=== PATIENT | male | born 1960 | race Hispanic/Latino ===

== ENCOUNTER 2017-10-30 12:39 | Emergency (ER) | payer MEDICARE ==
[~2017-10-30] VITALS: Ht 188 cm; Wt 124.7 kg
--- NOTE | 2017-10-30 15:24 | Diagnostic Imaging Report ---
PROCEDURE:X-RAY PELVIS, AP VIEW COMPARISON:None. INDICATIONS:FALL FINDINGS: There are no displaced fractures, dislocations, lytic or blastic lesions. The bones are well-mineralized. The soft-tissues are unremarkable. CONCLUSION: No evidence of acute displaced pelvic fracture or dislocation. Dictated by: Elton Ball M.D. on 10/30/2017 at 15:26 Electronically approved by: Elton Ball M.D. on 10/30/2017 at 15:26
--- NOTE | 2017-10-30 15:27 | Diagnostic Imaging Report ---
PROCEDURE:L-SPINE COMPLETE COMPARISON:None. INDICATIONS:FALL FINDINGS: There are 5 lumbar-type vertebral bodies. The vertebral bodies are well-aligned without evidence of spondylolisthesis. Vertebral body heights are maintained. Mild degenerative changes, marked by mild disc space narrowing and osteophytosis. L4-L5 and L5-S1 facet arthropathy. There are no fractures, lytic or blastic lesions. The sacroiliac joints are unremarkable. CONCLUSION: No evidence of acute displaced fracture of the lumbar spine. Degenerative changes. Dictated by: Elton Ball M.D. on 10/30/2017 at 15:29 Electronically approved by: Elton Ball M.D. on 10/30/2017 at 15:29
== END 2017-10-30 16:00 | disposition left against medical advice (07) ==
LOC: ER 12:39
CPT/HCPCS: 72110; 72170; 99282

== ENCOUNTER 2018-05-25 20:31 | Emergency (ER) | payer MEDICARE, OTHER ==
[~2018-05-25] VITALS: Ht 188 cm; Wt 124.7 kg
--- OUTSIDE RECORDS SUMMARY | 2018-05-25 20:33 | XMS REPORT | Clinical Summary ---
Author Author [facility] Organization [facility] Address Unknown Phone Unavailable Care Team Providers Care Company Marker Name Role Phone Kd Epps MD PCP Allergies No Known Allergies Medications End Date Status Medication Sig Dispensed Refills Start Date Active pantoprazole (PROTONIX) Take 40 mg by 0 40 MG EC tablet mouth daily. Active buPROPion XL (WELLBUTRIN Take 150 mg 0 XL) 150 MG 24 hr tablet by mouth 2 (two) times a day. Active tamsulosin (FLOMAX) 0.4 Take 0.4 mg 0 mg capsule by mouth daily. Active aspirin (ECOTRIN) 81 MG Take 81 mg by 0 enteric coated tablet mouth daily. Active sertraline (ZOLOFT) 100 Take 100 mg 0 MG tablet by mouth daily. Active metoprolol succinate XL Take 25 mg by 0 (TOPROL-XL) 25 mg 24 hr mouth daily. tablet Active insulin GLARGINE (LANTUS) Inject 50 0 100 unit/mL injection Units under (vial) the skin daily. Active Problems Problem Noted Date Type 2 diabetes mellitus with renal complication 02/19/2018 Encounters Care Team Description Date Type Specialty Vilma Christie RN 05/21/2018 Abstract Transplant Laura Zavala Cancel evaluation 05/21/2018 Telephone Transplant Vilma Christie RN Results 05/03/2018 Documentation Transplant Vilma Christie RN PSA elevation (Primary Dx); ESRD (end stage renal disease) ([facility]) 05/03/2018 Orders Only Transplant Jase Jules MD Canceled (Department/Provider) 04/24/2018 Hospital Transplant Encounter Jase Jules MD Breaux, Denise Canceled (Department/Provider) 04/24/2018 Hospital Transplant Encounter Sierra Griffin Consent Forms (Scanned Consent For Kidney Transplant Evaluation, Pre Txp Education & INOCENCIA forms in Media. 03-22-2018) 03/26/2018 Documentation Transplant Saadia Vegas MD ESRD (end stage renal disease) 03/22/2018 Hospital Transplant Encounter Jase Jules MD ESRD (end stage renal disease) (Primary Dx) 03/22/2018 Hospital Transplant Encounter Asked, No Pcp Jase Jules MD 03/22/2018 Hospital Transplant Encounter Jase Jules MD 03/22/2018 Hospital Transplant Encounter Lucas Laura Pre-kidney full eval day 1 03/22/2018 Telephone Transplant Simona Olson 02/27/2018 Documentation Transplant NatanalexisMalathi MA Referral - Kidney Txp (New MD Consult) 02/19/2018 Telephone Transplant after 05/24/2017 Social History Date Tobacco Use Types Packs/Day Years Used Never Smoker Smokeless Tobacco: Never Used Sex Assigned at Date Recorded Not on file Industry Job Start Date Occupation Not on file Not on file Not on file Travel End Travel History Travel Start No recent travel history available. Last Filed Vital Signs Time Taken Vital Sign Reading 03/22/2018 7:25 AM CDT Blood Pressure 118/65 03/22/2018 7:25 AM CDT Pulse 65 03/22/2018 7:23 AM CDT Temperature 36.6 C (97.9 F) 03/22/2018 7:23 AM CDT Respiratory Rate 17 03/22/2018 7:23 AM CDT Oxygen Saturation 96% - Inhaled Oxygen - Concentration 03/22/2018 7:23 AM CDT Weight 126 kg (278 lb 11.2 oz) 03/22/2018 7:23 AM CDT Height 188 cm (6' 2") 03/22/2018 7:23 AM CDT Body Mass Index 35.78 Plan of Treatment Health Maintenance Due Date Last Done Comments DIABETIC RETINAL EYE EXAM 1961 MMR VACCINES (1 of 1 - 1962 Standard series) DIABETIC FOOT EXAM 1971 URINE MICROALBUMIN 1971 VARICELLA VACCINES (1 of 1974 2 - 2-dose adolescent series) HEPATITIS B VACCINES (1 1980 of 3 - Risk 3-dose series) COLON CANCER SCREENING 2011 SHINGRIX VACCINE (1 of 2) 2011 INFLUENZA VACCINE 01/24/2018 IPV VACCINES Aged Out No longer eligible based on patient's age to complete this topic MENINGOCOCCAL VACCINE Aged Out No longer eligible based on patient's age to complete this topic Procedures Comments Procedure Name Priority Date/Time Associated Diagnosis OPIATES, S/P, QUANT Routine 03/22/2018 10:50 AM CDT THC METABOLITE, S/P, Routine 03/22/2018 QUANT 10:50 AM CDT ESTIMATED GFR Routine 03/22/2018 10:50 AM CDT PROSTATE SPECIFIC ANTIGEN Routine 03/22/2018 ESRD (end stage renal 10:50 AM CDT disease) SERUM ELECTROPHORESIS Routine 03/22/2018 ESRD (end stage renal 10:50 AM CDT disease) C-PEPTIDE Routine 03/22/2018 ESRD (end stage renal 10:50 AM CDT disease) TB T-SPOT Routine 03/22/2018 ESRD (end stage renal 10:50 AM CDT disease) (HCC) NICOTINE AND METABOLITES, Routine 03/22/2018 ESRD (end stage renal SERUM 10:50 AM CDT disease) DRUG MARQUES 9, SER/LEONID, SCRN Routine 03/22/2018 ESRD (end stage renal W/RFLX TO CONF 10:50 AM CDT disease) ABORH - TRANSPLANT Routine 03/22/2018 ESRD (end stage renal 10:50 AM CDT disease) PARTIAL THROMBOPLASTIN Routine 03/22/2018 ESRD (end stage renal TIME (PTT) 10:50 AM CDT disease) PROTHROMBIN TIME WITH INR Routine 03/22/2018 ESRD (end stage renal 10:50 AM CDT disease) HC COMPLETE BLD COUNT Routine 03/22/2018 ESRD (end stage renal W/AUTO DIFF 10:50 AM CDT disease) SYPHILIS TREPONEMAL IGG Routine 03/22/2018 ESRD (end stage renal 10:50 AM CDT disease) HEPATITIS C ANTIBODY Routine 03/22/2018 ESRD (end stage renal 10:50 AM CDT disease) HEPATITIS B SURFACE AB, Routine 03/22/2018 ESRD (end stage renal QUANTITATIVE 10:50 AM CDT disease) HEPATITIS B SURFACE Routine 03/22/2018 ESRD (end stage renal ANTIGEN 10:50 AM CDT disease) HEPATITIS B SURFACE Routine 03/22/2018 ESRD (end stage renal ANTIBODY 10:50 AM CDT disease) HEPATITIS B CORE ANTIBODY Routine 03/22/2018 ESRD (end stage renal TOTAL 10:50 AM CDT disease) HEPATITIS A ANTIBODY Routine 03/22/2018 ESRD (end stage renal TOTAL 10:50 AM CDT disease) HIV AG/AB COMBINATION Routine 03/22/2018 ESRD (end stage renal 10:50 AM CDT disease) URINALYSIS SCREEN AND Routine 03/22/2018 ESRD (end stage renal MICROSCOPY, WITH REFLEX 10:50 AM CDT disease) TO CULTURE COMPREHENSIVE METABOLIC Routine 03/22/2018 ESRD (end stage renal PANEL 10:50 AM CDT disease) GRAM STAIN Routine 03/22/2018 10:50 AM CDT URINE CULTURE Routine 03/22/2018 10:50 AM CDT after 05/24/2017 Results * Syphilis treponemal IgG (03/22/2018 10:50 AM CDT) Syphilis treponemal IgG Non-reactiveComment: Non-reactive [facility] Non-reactive: No serological PATHOLOGY AND evidence of Syphilis infection GENOMIC MEDICINE Specimen Serum Performing Organization Address City/State/Zipcode Phone Number [facility] [address] [facility] [place] [address] PATHOLOGY AND GENOMIC MEDICINE * Urinalysis screen and microscopy, with reflex to culture (03/22/2018 10:50 AM CDT) Specimen site Clean catch [facility] PATHOLOGY AND GENOMIC MEDICINE Color, UA Yellow [facility] PATHOLOGY AND GENOMIC MEDICINE Appearance, UA Cloudy [facility] PATHOLOGY AND GENOMIC MEDICINE Specific gravity, UA 1.017 1.001 - 1.035 [facility] PATHOLOGY AND GENOMIC MEDICINE pH, UA 7.0 5.0 - 8.5 [facility] PATHOLOGY AND GENOMIC MEDICINE Protein, UA 2+ (A) Negative [facility] PATHOLOGY AND GENOMIC MEDICINE Glucose, UA Negative Negative [facility] PATHOLOGY AND GENOMIC MEDICINE Ketones, UA Negative Negative [facility] PATHOLOGY AND GENOMIC MEDICINE Bilirubin, UA Negative Negative [facility] PATHOLOGY AND GENOMIC MEDICINE Blood, UA Small (A) Negative [facility] PATHOLOGY AND GENOMIC MEDICINE Nitrite, UA Negative Negative [facility] PATHOLOGY AND GENOMIC MEDICINE Urobilinogen, UA 4.0 (A) <2.0 [facility] PATHOLOGY AND GENOMIC MEDICINE Leukocyte esterase, UA Large (A) Negative [facility] PATHOLOGY AND GENOMIC MEDICINE Epithelial cells, UA 1 /HPF [facility] PATHOLOGY AND GENOMIC MEDICINE Round epithelial cells, 1 0 - 1 /HPF [facility] [place]A PATHOLOGY AND GENOMIC MEDICINE WBC, UA >180 (H) 0 - 1 /HPF [facility] PATHOLOGY AND GENOMIC MEDICINE RBC, UA None seen 0 - 5 /HPF [facility] PATHOLOGY AND GENOMIC MEDICINE Bacteria, UA Few None seen [facility] PATHOLOGY AND GENOMIC MEDICINE WBC clumps, UA Moderate (A) [facility] PATHOLOGY AND GENOMIC MEDICINE Yeast, UA Few (A) [facility] PATHOLOGY AND GENOMIC MEDICINE Yeast with pseudohyphae, Few (A) [facility] UA PATHOLOGY AND GENOMIC MEDICINE Hyaline casts, UA 2 /LPF [facility] PATHOLOGY AND GENOMIC MEDICINE Specimen Urine Performing Organization Address City/State/Zipcode Phone Number [facility] [address] [place] [address] PATHOLOGY AND GENOMIC MEDICINE * Estimated GFR (03/22/2018 10:50 AM CDT) Estimated GFR 22 (A) mL/min/1.73 m2 [facility] Comment: PATHOLOGY AND [employer] GENOMIC MEDICINE rpretation G1 >=90 Normal or high G2 60-89Mildly decreased [id number] Mildly to moderately decreased [id number] Moderately to severely decreased G4 15-29Severely decreased G5 <15Kidney failure The eGFR was calculated using the Chronic Kidney Disease Epidemiology Collaboration (CKD-EPI) equation. Interpretation is based on recommendations of the National Kidney Foundation-Kidney Disease Outcomes Quality Initiative (NKF-KDOQI) published in 2014. Specimen Plasma specimen Performing Organization Address City/[facility]/Zipcode Phone Number [place] [phone] [place] [address] PATHOLOGY AND GENOMIC MEDICINE * Opiates, s/p, quant (03/22/2018 10:50 AM CDT) 6-acetylmorphine, s/p, <2 ng/mL [facility] quant Comment: INTERPRETIVE INFORMATION: Opiates, Serum or Plasma, Quantita tive Methodology: Quantitative Liquid Chromatography-Tandem Mass Spectrometry Positive cutoff: 2 ng/mL For medical purposes only; not valid for forensic use. Identification of specific drug(s) taken by specimen donor is problematic due to common metabolites, some of which are prescription drugs themselves. The absence of expected drug(s) and/or drug metabolite(s) may indicate non-compliance, inappropriate timing of specimen collection relative to drug administration, poor drug absorption, or limitations of testing. All drugs covered are the non-glucuronidated (free) form. The concentration value must be greater than or equal to the cutoff to be reported as positive. A very small amount of an unexpected drug analyte in the presence of a large amount of an expected drug analyte may reflect pharmaceutical impurity. Interpretive questions should be directed to the laboratory. Test developed and characteristics determined by [facility]. See Compliance Statement B: [facility]/ Codeine, s/p, quant <2 ng/mL [facility] Morphine, s/p, quant <2 ng/mL [facility] Hydrocodone, s/p, quant <2 ng/mL [facility] Hydromoprhone, s/p, quant <2 ng/mL [facility] Oxycodone, s/p, quant <2 ng/mL [facility] Oxymorphone, s/p, quant <2 ng/mL [facility] Comment: Performed by [facility], [address] [place], [place] [id number] [email or web address], Martin Moe MD - Lab. Director Specimen Serum Performing Organization Address [facility]/Zipcode Phone Number [facility] [address] [place] [address] * HIV Ag/Ab combination (03/22/2018 10:50 AM CDT) HIV Ag/Ab combination Non-reactive Non-reactive [facility] PATHOLOGY AND GENOMIC MEDICINE Specimen Blood Performing Organization Address City/State/Zipcode Phone Number [facility] [address] [place] [address] PATHOLOGY AND GENOMIC MEDICINE * TB T-SPOT (03/22/2018 10:50 AM CDT) TB T-SPOT SEE NOTE [facility] Comment: PATHOLOGY AND T-SPOT TUBERCULOSIS GENOMIC MEDICINE Nil Control: 0 Panel A: 4 Panel B: 4 Positive Control: TMTC Result:NEGATIVE NOTE: TMTC INDICATES TOO MANY SPOTS TO COUNT SAT INDICATES THE WELL WAS SATURATED RESULTS INTERPRETATION: RESULTS ARE NEGATIVE WHEN (PANEL A-NIL) OR (PANEL B-NIL) <=4 SPOTS, INCLUDING VALUES LESS THAN ZERO. RESULTS ARE POSITIVE WHEN (PANEL A-NIL) OR (PANEL B-NIL) >=8 SPOTS RESULTS ARE BORDERELINE WHEN EITHER (PANEL A-NIL) OR (PANEL B-NIL)=5,6,0R 7. THE TEST IS INVALID WHEN EITHER OF THE FOLLOWING CONDITIONS IS MET: 1.) THE NIL CONTROL HAS >10 SPOTS 2.) THE MITOGEN (POSITIVE CONTROL) HAS <20 SPOTS AND BOTH (PANEL A-NIL) AND (PANEL B-NIL) <=4 SPOTS. M. TUBERCULOSIS INFECTION UNLIKELY, BUT CANNOT BE EXCLUDED ESPECIALLY WHEN: 1. ANY ILLNESS IS CONSISTENT WITH TB DISEASE. 2. LIKELIHOOD OF PROGRESSION TO DISEASE (e.g. DUE TO IMMUNOSUPPRESSION) IS INCREASED. LIMITATIONS: DIAGNOSING OR EXCLUDING TUBERCULOSIS DISEASE, AND ASSESSING THE PROBABILITY OF LTBI, REQUIRES A COMBINATION OF EPIDEMIOLOGICAL, HISTORICAL, MEDICAL, AND DIAGNOSTIC FINDINGS THAT SHOULD BE TAKEN INTO ACCOUNT WHEN INTERPRETING T-SPOT.TB REFER TO THE MOST RECENT CDC GUIDANCE (HTTP: //WWW.CDC.GOV/NCHSTP/TB) FOR DETAILED RECOMMENDATIONS ABOUT DIAGNOSING TB INFECTION (INCLUDING DISEASE) AND SELECTING PERSONS FOR TESTING. 1.) A FALSE NEGATIVE RESULT CAN BE CAUSED BY INCORRECT BLOOD SAMPLE COLLECTION OR IMPROPER HANDLING OF THE SPECIMEN, AFFECTING LYMPHOCYTE FUNCTION 2.) THE PERFORMANCE OF T-SPOT.TB HAS NOT BEEN ADEQUATELY EVALUATED WITH SPECIMENS FROM INDIVIDUALS YOUNGER THANAGE 17 YEARS, IN WOMEN, AND IN PATIENTS WITH HEMOPHILIA. 3-) A FALSE POSITIVE RESULT WAS OBTAINED FOR T-SPOT.TB WHEN TESTED IN SUBJECTS WITH M. XENOPI, M. KANSASII, AND M. GORDONAE.WHILE ESAT-6 AND CFP-10 ANTIGENS ARE ABSENT FROM BCG STRAINS OF M. BOVIS AND FROM MOST ENVIRONMENTAL MYCOBACTERIA, IT IS POSSIBLE THAT A POSITIVE T-SPOT.TB RESULT MAY BE DUE TO INFECTION WITH M. KANSASII, M. SZULGAI, M. GORDONAE, OR M. MARINUM. ALTERNATIVE TESTS WOULD BE REQUIRED IF THESE INFECTIONS ARE SUSPECTED. 4.) A NEGATIVE TEST RESULT DOES NOT EXCLUDE THE POSSIBILITY OF EXPOSURE TO, OR INFECTION WITH, M. TUBERCULOSIS. PATIENTS WITH RECENT EXPOSURE TO TB INFECTED INDIVIDUALS EXHIBITING A NEGATIVE T-SPOT.TB RESULT SHOULD BE CONSIDERED FOR RETESTING WITHIN 6 WEEKS OR IF OTHER RELEVANT CLINICAL SYMPTOMS INDICATE POSSIBLE INFECTION. 5.) A POSITIVE TEST RESULT DOES NOT RULE IN ACTIVE TB DISEASE; OTHER TESTS SHOULD BE PERFORMED TO CONFIRM THE DIAGNOSIS OF ACTIVE TB DISEASE SUCH SPUTUM SMEAR AND CULTURE, PCR AND CHEST RADIOGRAPHY. 6.) T-SPOT.TB TEST HAS NOT BEEN EVALUATED IN SUBJECTS WHO HAVE RECEIVED >1 MONTH OF ANTI-TB THERAPY. 7. ) REFRIGERATED AND FROZEN SAMPLES ARE NOT RECOMMENDED FOR USE WITH T=SPOT.TB TEST. Performed by: [facility] Molecular Tuberculosis Laboratory [facility] ([id number]) [place], [place] [address] Specimen Blood Performing Organization Address City/State/Zipcode Phone Number [facility] [address] [place] [address] PATHOLOGY AND GENOMIC MEDICINE * Nicotine and metabolites, serum (03/22/2018 10:50 AM CDT) Nicotine <2.0 0.0 - 2.0 ng/mL [facility] PATHOLOGY AND GENOMIC MEDICINE Cotinine 3.4 (H) 0.0 - 2.0 ng/mL [facility] PATHOLOGY AND GENOMIC MEDICINE 4-OW-bfxduuhb <5.0 0.0 - 5.0 ng/mL [facility] Comment: PATHOLOGY AND This test was developed and GENOMIC MEDICINE its performance characteristics determined by the Department of Pathology and Genomic Medicine, [facility]. Serum nicotine and its metabolites cotinine and 3-SQ-eyjrlkpj are tested by HPLC tandem mass spectrometry. It has not been cleared or approved by FDA. The laboratory is regulated under CLIA as qualified to perform high-complexity testing. This test is used for clinical purposes. It should not be regarded as investigational or for research. Specimen Blood Performing Organization Address City/State/Zipcode Phone Number [facility] [place] [address] PATHOLOGY AND [facility] MEDICINE * Hepatitis B surface Ab, quantitative (03/22/2018 10:50 AM CDT) Hepatitis B surface Ab >1000.00 IU/L [facility] Comment: The anti-HBs is greater than or equal to 10 IU/L. This patient has either had an antibody response to HBV vaccination, received a transfusion, or has recovered from HBV infection. This patient should be considered immune to hepatitis B. An anti-HBs result greater than or equal to 10 IU/L implies immunity. For post-vaccination antibody testing guidelines for the general public refer to MMWR June 17, 2005/Vol. 54(No. 16);07-18, and for healthcare workers refer to MMWR June 14, 2013/Vol. 62(No. 10);07-14. Reference Interval: anti-HBs 9.99 IU/L or less ....... Negative 10.00 IU/L or greater .... Positive Results greater than 1,000.00 IU/L are reported as greater than 1,000.00 IU/L. This assay should not be used for blood donor screening, associated re-entry protocols, or for screening Human Cell, Tissues and Cellular and Tissue-Based Products (HCT/P). Performed by [facility], [address] [place] [id number] [email or web address], Martin Moe MD - Lab. Director Specimen Serum Performing Organization Address [facility] Phone Number [facility] [address] [place] [phone] * Hepatitis C antibody (03/22/2018 10:50 AM CDT) Hepatitis C Ab Non-reactive Non-reactive [facility] OF PATHOLOGY AND GENOMIC MEDICINE Specimen Blood Performing Organization Address City/[facility]/Zipcode Phone Number [facility] [place] [address] PATHOLOGY AND [facility] * Hepatitis A antibody total (03/22/2018 10:50 AM CDT) Hepatitis A total Ab Non-reactive Non-reactive [facility] PATHOLOGY AND GENOMIC MEDICINE Specimen Blood Performing Organization Address City/[facility] Phone Number [facility] [place] [address] PATHOLOGY AND GENOMIC MEDICINE * Drug marques 9, ser/leonid, scrn w/rflx to conf (03/22/2018 10:50 AM CDT) Amphetamines, s/p, screen Negative Cutoff 30 ng/mL [facility] Methamphetamine, s/p, Negative Cutoff 30 ng/mL [facility] screen Barbiturates, s/p, screen Negative Cutoff 75 ng/mL [facility] Benzodiazepines, s/p, Negative Cutoff 75 ng/mL [facility] screen Cocaine, s/p, screen Negative Cutoff 30 ng/mL [facility] Methadone, s/p, screen Negative Cutoff 40 ng/mL [facility] Opiates, s/p, screen Positive Cutoff 30 ng/mL [facility] Comment: If the screen is positive, then confirmation by mass spectrometry will be added. Additional charges will apply. Unconfirmed positive may be useful for medical purposes, but does not meet forensic standards. Oxycodone, s/p, screen Negative Cutoff 30 ng/mL [facility] Phencyclidine, s/p, Negative Cutoff 15 ng/mL [facility] screen Cannabinoids, s/p, screen Positive Cutoff 30 ng/mL [facility] Comment: If the screen is positive, then confirmation by mass spectrometry will be added. Additional charges will apply. Unconfirmed positive may be useful for medical purposes, but does not meet forensic standards. Drug screen comments, See Note [facility] serum Comment: INTERPRETIVE INFORMATION: Drug Screen 9 Panel, Serum or Plasma - Immunoassay Screen with Reflex to Mass Spectrometry Confirma tion/Quantitation 1. Methodology: Qualitative Immunoassay Screen 2. Drugs/Drug classes reported as "Positive" are automatically reflexed to mass spectrometry confirmation/quantitation testing. An immunoassay unconfirmed positive screen result may be useful for medical purposes but does not meet forensic standards. 3. The absence of expected drug(s) and/or drug metabolite(s) may indicate non-compliance, inappropriate timing of specimen collection relative to drug administration, poor drug absorption, or limitations of testing. The concentration at which the screening test can detect a drug or metabolite varies within a drug class. Specimens for which drugs or drug classes are detected by the screen are automatically reflexed to a second, more specific technology (mass spectrometry). The concentration value must be greater than or equal to the cutoff to be reported as positive. Interpretive questions should be directed to the laboratory. 4. For medical purposes only; not valid for forensic use. Test developed and characteristics determined by [facility]. See Compliance Statement B: [facility]/CS Performed by [facility], [address] [place] [address] [email or web address], Martin Moe MD - Lab. Director Specimen Serum Performing Organization Address City/[facility]/Zipcode Phone Number [facility] [address] [place] [address] * ABORh - transplant (03/22/2018 10:50 AM CDT) ABO grouping O [facility] PATHOLOGY AND GENOMIC MEDICINE Rh type POS [facility] PATHOLOGY AND GENOMIC MEDICINE Specimen Blood Performing Organization Address [facility] Phone Number [facility] [place] [address] PATHOLOGY AND [facility] * Hepatitis B core antibody total (03/22/2018 10:50 AM CDT) Hepatitis B core total Ab Reactive (A) Non-reactive [facility] PATHOLOGY AND GENOMIC MEDICINE Specimen Blood Performing Organization Address City/[facility] Phone Number [facility] [place] [address] PATHOLOGY AND [facility] * THC metabolite, s/p, quant (03/22/2018 10:50 AM CDT) 83-nlt-9-carboxy-THC, 39 ng/mL [facility] s/p, quant Comment: INTERPRETIVE INFORMATION: THC Metabolite, Serum or Plasma, Quantitative Methodology: Quantitative Liquid Chromatography-Tandem Mass Spectrometry. Positive cutoff: 5 ng/mL For medical purposes only; not valid for forensic use. The drug analyte detected in this assay, 9-carboxy THC, is a metabolite of maljh-0-rsljfvgqjouckrdxhxoz (THC).Detection of 9-carboxy THC suggests use of, or exposure to, a product containing THC.This test cannot distinguish between prescribed or non-prescribed forms of THC, nor can it distinguish between active or passive use.The plasma half-life for 9-carboxy THC metabolite is estimated to range from 4-12 hours. Test developed and characteristics determined by [facility]. See Compliance Statement B: [facility]/CS Performed by [facility], [address] [place] [address] [email or web address], Martin Moe MD - Lab. Director Specimen Serum Performing Organization Address [facility] Phone Number [facility] [address] [place] [address] * C-peptide (03/22/2018 10:50 AM CDT) C-peptide 3.5 1.1 - 4.4 ng/mL [facility] OF PATHOLOGY AND GENOMIC MEDICINE Specimen Plasma specimen Performing Organization [facility] Phone Number [facility] [place] [address] PATHOLOGY AND [facility] * Hepatitis B surface antibody (03/22/2018 10:50 AM CDT) Hepatitis B surface Ab Reactive (A) Non-reactive [facility] OF PATHOLOGY AND GENOMIC MEDICINE Specimen Blood Performing Organization [facility] [place] [address] PATHOLOGY AND [facility] * Hepatitis B surface antigen (03/22/2018 10:50 AM CDT) Hepatitis B surface Ag Non-reactive Non-reactive [facility] OF PATHOLOGY AND GENOMIC MEDICINE Specimen Blood Performing Organization [facility] Phone Number [facility] [place] [address] PATHOLOGY AND [employer] MEDICINE * Partial thromboplastin time, activated (03/22/2018 10:50 AM CDT) PTT 32.3 23.0 - 36.0 sec [facility] Comment: PATHOLOGY AND PTT therapeutic range for [facility] unfractionated heparin is 61.0-112.0 seconds which corresponds to Anti-Xa 0.3-0.7 U/ml. Specimen Blood Performing Organization Address [facility] [facility] [place] Phone Number [facility] [place] [address] PATHOLOGY AND [employer] MEDICINE * Prothrombin time with INR (03/22/2018 10:50 AM CDT) Prothrombin time 13.6 12.0 - 15.0 sec [facility] DEPART[facility] OF PATHOLOGY AND GENOMIC MEDICINE INR 1.0 [facility] OF Comment: PATHOLOGY AND The International Normalized [facility] MEDICINE Ratio (INR) is a therapeutic monitoring tool for patients who are stable on oral anticoagulant therapy. An INR of 2.0-3.0 is suggested for deep vein thrombosis/pulmonary embolism. Specimen Blood Performing Organization Address [facility] Phone Number [facility] DE[facility] OF [address] [place] [address] PATHOLOGY AND GENOMIC MEDICINE * Gram stain (03/22/2018 10:50 AM CDT) Gram stain result Moderate WBC's [facility] DEPARTMENT OF [facility] Budding yeast, PATHOLOGY AND pseudohyphae present GENOMIC MEDICINE Comment: Specimen Information [id number] Specimen Source: Urine Specimen Site: Clean catch Specimen Urine Performing Organization Address City/State/Zipcode Phone Number [facility] DEPARTMENT OF [address] [place] [phone] PATHOLOGY AND GENOMIC MEDICINE * CBC with platelet and differential (03/22/2018 10:50 AM CDT) WBC 5.71 4.50 - 11.00 k/uL [facility] DEPARTMENT OF PATHOLOGY AND GENOMIC MEDICINE RBC 5.31 4.40 - 6.00 m/uL [facility] DEPARTMENT OF PATHOLOGY AND GENOMIC MEDICINE HGB 15.8 14.0 - 18.0 g/dL [facility] DEPARTMENT OF PATHOLOGY AND GENOMIC MEDICINE HCT 47.7 41.0 - 51.0 % [facility] DEPARTMENT OF PATHOLOGY AND GENOMIC MEDICINE MCV 89.8 82.0 - 100.0 fL [facility] DEPARTMENT OF PATHOLOGY AND GENOMIC MEDICINE MCH 29.8 27.0 - 34.0 pg [facility] DEPARTMENT OF PATHOLOGY AND GENOMIC MEDICINE MCHC 33.1 31.0 - 37.0 g/dL [facility] DEPARTMENT OF PATHOLOGY AND GENOMIC MEDICINE RDW - SD 46.6 37.0 - 55.0 fL [facility] DEPARTMENT OF PATHOLOGY AND GENOMIC MEDICINE MPV 9.5 8.8 - 13.2 fL [facility] DEPARTMENT OF PATHOLOGY AND GENOMIC MEDICINE Platelet count 144 (L) 150 - 400 k/uL [facility] DEPARTMENT OF PATHOLOGY AND GENOMIC MEDICINE Nucleated RBC 0.00 /100 WBC [facility] DEPARTMENT OF PATHOLOGY AND GENOMIC MEDICINE Neutrophils 60.5 39.0 - 69.0 % [facility] DEPARTMENT OF PATHOLOGY AND GENOMIC MEDICINE Lymphocytes 30.5 25.0 - 45.0 % [facility] DEPARTMENT OF PATHOLOGY AND GENOMIC MEDICINE Monocytes 7.2 0.0 - 10.0 % [facility] DEPARTMENT OF PATHOLOGY AND GENOMIC MEDICINE Eosinophils 1.2 0.0 - 5.0 % [facility] DEPARTMENT OF PATHOLOGY AND GENOMIC MEDICINE Basophils 0.2 0.0 - 1.0 % [facility] DEPARTMENT OF PATHOLOGY AND GENOMIC MEDICINE Immature granulocytes 0.4Comment: "Immature 0.0 - 1.0 % [facility] DE[facility] OF granulocytes" (promyelocytes, PATHOLOGY AND myelocytes, metamyelocytes) GENOMIC MEDICINE Specimen Blood Performing Organization Address City/[facility]/Zipcode Phone Number [facility] DEPARTMENT OF [address] [place] [address] PATHOLOGY AND GENOMIC MEDICINE * Urine culture (03/22/2018 10:50 AM CDT) Urine culture isolate Paula albicans [facility] DEPARTMENT OF 10-4 cfu/ml PATHOLOGY AND The [facility] GENOMIC MEDICINE characteristics of this assay on this isolate were validated by the Microbiology Laboratory at [facility].This source has not been approved by the U.S. Food and Drug Administration.The results are not intended to be used as the sole means for clinical diagnosis or patient management.The Microbiology Laboratory is authorized under the clinical Laboratory Improvement Amendments of 1988 (CLIA-88) to perform high complexity testing. (A) Comment: Specimen Information Specimen Source: Urine Specimen Site: Clean catch Urine culture isolate Mixed Gram positive vlad [facility] DEPARTMENT OF 10-1 cfu/ml PATHOLOGY AND (A) GENOMIC MEDICINE Specimen Urine Performing Organization Address City/[facility] Phone Number [facility] DE[facility] OF [address] [place] [address] PATHOLOGY AND GENOMIC MEDICINE * Serum electrophoresis (03/22/2018 10:50 AM CDT) Protein 7.0 6.3 - 8.3 g/dL [facility] DEPARTMENT OF Comment: PATHOLOGY AND [place] GENOMIC MEDICINE 4.6-7.0 g/dL 1 week 4.4-7.6 g/dL 7 months-1year 5.1-7.3 g/dL 1-2 years5.6-7 .5 g/dL >3 years6.0-8 .0 g/dL 18-150 6.3-8.3 g/dL SPE albumin 4.72 4.00 - 5.30 g/dL [facility] DEPARTMENT OF PATHOLOGY AND GENOMIC MEDICINE SPE alpha 1 0.18 0.10 - 0.25 g/dL [facility] DEPARTMENT OF PATHOLOGY AND GENOMIC MEDICINE SPE alpha 2 0.58 0.58 - 0.84 g/dL [facility] DEPARTMENT OF PATHOLOGY AND GENOMIC MEDICINE SPE beta 0.69 0.50 - 1.10 g/dL [facility] DEPARTMENT OF PATHOLOGY AND GENOMIC MEDICINE SPE gamma 0.83 0.60 - 1.30 g/dL [facility] DEPARTMENT OF PATHOLOGY AND GENOMIC MEDICINE SPE extended See CommentComment: A normal [facility] DE[facility] OF interpretation serum protein study. PATHOLOGY AND GENOMIC MEDICINE SPE interpretation See Comment [facility] DEPARTMENT OF Comment: PATHOLOGY AND Joanna Henderson, PhD; [place] GENOMIC MEDICINE MD Trixie, MPH; Ruben Berry, PhD; Anastacio Waddell MD, PhD Specimen Serum Performing Organization Address City/[facility] Phone Number [address] [address] PATHOLOGY AND GENOMIC MEDICINE * Prostate specific antigen (03/22/2018 10:50 AM CDT) PSA 5.7 (H) 0.0 - 4.0 ng/mL [facility] DEPART[facility] OF Comment: PATHOLOGY AND The MAGALI 8000 PSA immunoassay [facility] was used. Results obtained with different assay methods or kits should not be used interchangeably and may be different. Specimen Plasma specimen Performing Organization Address [facility] Phone Number [address] [address] PATHOLOGY AND [employer] MEDICINE * Comprehensive metabolic panel (03/22/2018 10:50 AM CDT) Sodium 143 135 - 148 mEq/L [facility] DEPARTMENT OF PATHOLOGY AND GENOMIC MEDICINE Potassium 3.5 3.5 - 5.0 mEq/L [facility] DEPARTMENT OF PATHOLOGY AND GENOMIC MEDICINE Chloride 98 98 - 112 mEq/L [facility] DEPARTMENT OF PATHOLOGY AND GENOMIC MEDICINE CO2 31 24 - 31 mEq/L [facility] DEPARTMENT OF PATHOLOGY AND GENOMIC MEDICINE Anion gap 14@ANIO 7 - 15 mEq/L [facility] DEPARTMENT OF PATHOLOGY AND GENOMIC MEDICINE BUN 23 (H) 6 - 20 mg/dL [facility] DEPARTMENT OF PATHOLOGY AND GENOMIC MEDICINE Creatinine 3.00 (H) 0.70 - 1.20 mg/dL [facility] DEPARTMENT OF PATHOLOGY AND GENOMIC MEDICINE Glucose 61 (L) 65 - 99 mg/dL [facility] DEPARTMENT OF PATHOLOGY AND GENOMIC MEDICINE Calcium 9.0 8.3 - 10.2 mg/dL [facility] DEPARTMENT OF PATHOLOGY AND GENOMIC MEDICINE Protein 7.6 6.3 - 8.3 g/dL [facility] DEPARTMENT OF Comment: PATHOLOGY AND GENOMIC MEDICINE 4.6-7.0 g/dL 1 week 4.4-7.6 g/dL 7 months-1year 5.1-7.3 g/dL 1-2 years5.6-7 .5 g/dL >3 years6.0-8 .0 g/dL 18-150 6.3-8.3 g/dL Albumin 3.9 3.5 - 5.0 g/dL [facility] DEPARTMENT OF PATHOLOGY AND GENOMIC MEDICINE A/G ratio 1.1 0.7 - 3.8 [facility] DEPARTMENT OF PATHOLOGY AND GENOMIC MEDICINE Alkaline phosphatase 102 40 - 129 U/L [facility] DEPARTMENT OF PATHOLOGY AND GENOMIC MEDICINE AST 19 10 - 50 U/L [facility] DEPARTMENT OF PATHOLOGY AND GENOMIC MEDICINE ALT 15 5 - 50 U/L [facility] DEPARTMENT OF PATHOLOGY AND GENOMIC MEDICINE Total bilirubin 0.8 0.0 - 1.2 mg/dL [facility] DEPARTMENT OF PATHOLOGY AND GENOMIC MEDICINE Specimen Plasma specimen Performing Organization Address City/State/Zipcode Phone Number [facility] DEPARTMENT OF [address] [place] [address] PATHOLOGY AND GENOMIC MEDICINE after 05/24/2017 Insurance Payer Benefit Subscriber ID Type Phone Address Plan / Group MEDICARE MEDICARE xxxxxxxxxx Medicare [place], [place] PART A AND B [employer] xxxxxxxxx O [employer] [facility] (Home) [place] [address] Marek [facility] Self [address] [place] [address] (Reading) [place] [address] Advance Directives Patient has advance care planning documents on file. For more information, ilene garcia contact: Devin Mike [address] [place] [address]
--- OUTSIDE RECORDS SUMMARY | 2018-05-25 20:34 | XMS REPORT | Clinical Summary ---
Author Author [facility] Address Unknown Phone Unavailable Care Team Providers Care Social Work Specialist Name Role Phone PCP Unavailable Allergies No Known Allergies Medications Not on file Active Problems Not on file Encounters Care Team Description Date Type Specialty Nina Magallanes 12/07/2017 Abstract Transplant Nina Magallanes Kidney Transplant Pre-evaluation 12/07/2017 Telephone Transplant ESRD (end stage renal disease) (HCC) (Primary Dx); Pre-transplant evaluation for chronic kidney disease 07/18/2017 Office Visit Transplant Nina Magallanes 05/26/2017 Abstract Transplant after 05/24/2017 Social History Date Tobacco Use Types Packs/Day Years Used Never Assessed Sex Assigned at Date Recorded Not on file Industry Job Start Date Occupation Not on file Not on file Not on file Travel End Travel History Travel Start No recent travel history available. Last Filed Vital Signs Not on file Plan of Treatment Not on file Results Not on fileafter 05/24/2017 Insurance Payer Benefit Subscriber ID Type Phone Address Plan / Group MEDICARE MEDICARE A xxxxxxxxxx Medicare B MEDICAID MEDICAID xxxxxxxxx Medicaid OF [place]
--- OUTSIDE RECORDS SUMMARY | 2018-05-25 20:34 | XMS REPORT | Summary of Care ---
Author Author [facility] Organization [facility] Address Unknown Phone Unavailable Encounter HQ Alexey(FIN) [id number] Date(s): 03/27/15 - 03/27/15 [facility] [address] [place] [address]- Discharge Diagnosis: Encounter for postoperative wound check Discharge Disposition: Home Attending Physician: Rene Salguero MD Vital Signs Most recent to 1 2 oldest [Reference Range]: Temperature Oral 98.2 DegF 98.3 DegF [96.4-99.1 DegF] (03/27/15 8:24 PM) (03/27/15 7:14 PM) Most recent to 1 2 oldest [Reference Range]: Blood Pressure 131/68 mmHg 134/70 mmHg [90-140/60-90 mmHg] (03/27/15 8:24 PM) (03/27/15 7:14 PM) Most recent to 1 2 oldest [Reference Range]: Respiratory Rate 17 BRMIN 18 BRMIN [14-20 BRMIN] (03/27/15 8:24 PM) (03/27/15 7:14 PM) Most recent to 1 2 oldest [Reference Range]: Peripheral Pulse 64 bpm 66 bpm Rate [60-100 bpm] (03/27/15 8:24 PM) (03/27/15 7:14 PM) Most recent to 1 2 oldest [Reference Range]: Weight 121 kg (03/27/15 7:14 PM) Problem List Condition Effective Dates Status Health Status Informant Diabetes(Confirmed) Resolved Enlarged Resolved prostate(Confirmed) Hypertension(Confirm Resolved ed) Renal Resolved failure(Confirmed) Allergies, Adverse Reactions, Alerts Substance Reaction Severity Status NKDA Active Medications No data available for this section Results No data available for this section Immunizations Vaccine Date Refusal Reason pneumococcal 23-valent vaccine 11/09/14 Procedures No data available for this section Social History Social History Type Response Alcohol Never Smoking Status Never smoker; Exposure to Tobacco Smoke None; Cigarette Smoking Last 365 Days No; Reg Smoking Cessation Counseling No Assessment and Plan No data available for this section
--- OUTSIDE RECORDS SUMMARY | 2018-05-25 20:34 | XMS REPORT | Summary of Care ---
Author Author [facility] Organization [facility] Address Unknown Phone Unavailable Encounter HQ Angelia_winston(FIN) [id number] Date(s): 07/29/15 - 07/29/15 [facility] [address] [place] [address]- Discharge Disposition: Home Attending Physician: Ezequiel Shafer MD Referring Physician: Ezequiel Shafer MD Vital Signs No data available for this section Problem List Condition Effective Dates Status Health Status Informant BPH(Confirmed) Active Diabetes(Confirmed) Active Enlarged Active prostate(Confirmed) ESRD on Active dialysis(Confirmed) Hypertension(Confirm Active ed) Renal Resolved failure(Confirmed) Allergies, Adverse Reactions, Alerts Substance Reaction Severity Status NKDA Active Medications No data available for this section Results No data available for this section Immunizations Vaccine Date Refusal Reason pneumococcal 23-valent vaccine 11/09/14 Procedures Procedure Date Related Diagnosis Body Site Arteriovenous fistula operation Dialysis procedure Social History Social History Type Response Substance Abuse Use: Current. Type: Marijuana. Recreational Drug Route: Inhaled. IV drug use: No. Drug use interferes with work/home: No. Ready to change: No. Household substance abuse concerns: No. Cessation Education Provided: Yes. Alcohol Never Smoking Status Never smoker; Type: Cigarettes; Lives with someone who smokes; Cigarette Smoking Last 365 Days No; Reg Smoking Cessation Counseling No Assessment and Plan No data available for this section
--- OUTSIDE RECORDS SUMMARY | 2018-05-25 20:34 | XMS REPORT | Summary of Care ---
Author Author [facility] Organization [facility] Address Unknown Phone Unavailable Encounter HQ Alexey(TARSHA) [id number] Date(s): 07/31/15 - 08/01/15 [facility] [address] [place] [address]- Discharge Disposition: Home Attending Physician: Ezequiel Shafer MD Referring Physician: Ezequiel Shafer MD Vital Signs 1 2 3 Most recent to oldest [Reference Range]: 187.9 cm (08/01/15 11:00 AM) 187.96 cm (07/24/15 7:46 AM) Height 99.3 DegF *HI* (08/01/15 8:00 AM) 98.6 DegF (08/01/15 3:46 AM) 98.1 DegF (07/31/15 11:30 PM) Temperature Oral [96.4-99.1 DegF] 161/60 mmHg *HI* (08/01/15 8:00 AM) 148/69 mmHg *HI* (08/01/15 3:46 AM) 130/68 mmHg (07/31/15 11:30 PM) Blood Pressure [90-140/60-90 mmHg] 18 BRMIN (08/01/15 8:00 AM) 16 BRMIN (08/01/15 3:46 AM) 18 BRMIN (07/31/15 11:30 PM) Respiratory Rate [14-20 BRMIN] 86 bpm (08/01/15 8:00 AM) 73 bpm (08/01/15 3:46 AM) 76 bpm (07/31/15 11:30 PM) Peripheral Pulse Rate [60-100 bpm] 126.36 kg (08/01/15 11:00 AM) 126.364 kg (07/24/15 7:46 AM) Weight 35.79 m2 (08/01/15 11:00 AM) 35.77 m2 (07/24/15 7:46 AM) Body Mass Index Problem List Condition Effective Dates Status Health Status Informant BPH(Confirmed) Active Diabetes(Confirmed) Active Enlarged Active prostate(Confirmed) ESRD on Active dialysis(Confirmed) Hypertension(Confirm Active ed) Renal Resolved failure(Confirmed) Allergies, Adverse Reactions, Alerts Substance Reaction Severity Status NKDA Active Medications acetaminophen-codeine #3 1 tab, Route: PO, Drug Form: TAB, Dosing Weight 126.364, kg, Q4H, PRN Pain Score 4-6, Start date: 07/31/15 16:54:00, Duration: 30 day, Stop date: 08/30/15 16:53 :00 Notes: Do not exceed 4gm/day of acetaminophen. (Same as: Tylenol with Codeine # 3) Start Date: 07/31/15 Stop Date: 08/01/15 Status: Discontinued acetaminophen-codeine #3 2 tab, Route: PO, Drug Form: TAB, Dosing Weight 126.364, kg, Q4H, PRN Pain Score 4-6, Start date: 07/31/15 16:54:00, Duration: 30 day, Stop date: 08/30/15 16:53 :00 Notes: Do not exceed 4gm/day of acetaminophen. (Same as: Tylenol with Codeine # 3) Start Date: 07/31/15 Stop Date: 08/01/15 Status: Discontinued acetaminophen-hydrocodone 325 mg-5 mg oral tablet 1 tab, PO, Q4H, PRN Pain, # 60 tab, 0 Refill(s) Start Date: 08/01/15 Stop Date: 08/01/16 Status: Ordered Ancef 2 gm, 100 mL, Route: IVPB, Drug form: INJ, PRE OP, Dosing Weight 121, kg, Start date: 07/24/15 8:00:00, Duration: 30 day, Stop date: 08/23/15 7:59:00 Notes: Same as: Ancef Start Date: 07/24/15 Stop Date: 08/01/15 Status: Discontinued atropine 0.5 mg, 5 mL, Route: IVP, Drug form: INJ, PRN, PRN Bradycardia, Start date: 11/08 21:04:00, Duration: 30 day, Stop date: 08/30/15 21:03:00 Start Date: 07/31/15 Stop Date: 08/01/15 Status: Discontinued belladonna-opium 16.2 mg-60 mg rectal suppository 1 supp, Route: FL, Dosing Weight 126.364, kg, ONCE, Start date: 07/31/15 16:49:0 0, Stop date: 07/31/15 16:49:00 Start Date: 07/31/15 Stop Date: 07/31/15 Status: Completed ceFAZolin (ANES) Route: IV, Drug form: INJ, ONCE, Stop date: 07/31/15 13:50:00 Start Date: 07/31/15 Stop Date: 07/31/15 Status: Completed ceFAZolin (ANES) Route: IV, Drug form: INJ, ONCE, Stop date: 07/31/15 16:25:00 Start Date: 07/31/15 Stop Date: 07/31/15 Status: Completed Cialis 5 mg oral tablet 5 mg=1 tab, PO, Daily, # 30 tab, 0 Refill(s) Start Date: 07/24/15 Status: Ordered Cipro 250 mg oral tablet 250 mg=1 tab, PO, Q12H, X 7 day, # 14 tab, 0 Refill(s) Start Date: 07/31/15 Stop Date: 08/07/15 Status: Ordered ciprofloxacin (ANES) Route: IV, Drug form: INJ, ONCE, Stop date: 07/31/15 14:52:00 Start Date: 07/31/15 Stop Date: 07/31/15 Status: Completed Detrol LA 4 mg, 1 cap, Route: PO, Drug form: CAP, ONCE, Dosing Weight 126.364, kg, Start d ate: 07/31/15 18:08:00, Stop date: 07/31/15 18:08:00 Notes: Do Not Crush. (Same As: Detrol LA) Start Date: 07/31/15 Stop Date: 07/31/15 Status: Voided With Results Detrol LA 4 mg, 1 cap, Route: PO, Drug form: CAP, ONCE, Dosing Weight 126.364, kg, Start d ate: 07/31/15 19:04:00, Stop date: 07/31/15 19:04:00 Notes: Do Not Crush. (Same As: Detrol LA) Start Date: 07/31/15 Stop Date: 07/31/15 Status: Completed dexamethasone 4 mg, Route: IVP, ONCE, Dosing Weight 126.364, kg, PRN Nausea & Vomiting, Start date: 07/31/15 16:37:00 Start Date: 07/31/15 Stop Date: 07/31/15 Status: Discontinued Dextrose 50% Syringe 12.5 gm, 25 mL, Route: IVP, Drug Form: INJ, Dosing Weight 126.364, kg, PRN, PRN Blood Glucose Results, Start date: 08/01/15 7:25:00, Duration: 30 day, Stop date : 08/31/15 7:24:00 Start Date: 08/01/15 Stop Date: 08/01/15 Status: Discontinued Dextrose 50% Syringe 25 gm, 50 mL, Route: IVP, Drug Form: INJ, Dosing Weight 126.364, kg, PRN, PRN Bl ood Glucose Results, Start date: 08/01/15 7:25:00, Duration: 30 day, Stop date: 08/31/15 7:24:00 Start Date: 08/01/15 Stop Date: 08/01/15 Status: Discontinued diphenhydrAMINE 12.5 mg, Route: IVP, Drug form: INJ, Q6H, Dosing Weight 126.364, kg, PRN Itching , Start date: 07/31/15 16:37:00, Duration: 30 day, Stop date: 08/30/15 16:36:00 Start Date: 07/31/15 Stop Date: 07/31/15 Status: Discontinued doxycycline monohydrate 100 mg oral tablet 100 mg=1 tab, PO, Q12H, # 28 tab, 0 Refill(s) Start Date: 07/24/15 Stop Date: 08/07/15 Status: Ordered escitalopram 20 mg oral tablet 20 mg=1 tab, PO, Daily, # 30 tab, 0 Refill(s) Start Date: 07/24/15 Status: Ordered fentaNYL 25 microgram, Route: IVP, Q5Min, Dosing Weight 126.364, kg, PRN Pain Score 4-6, Start date: 07/31/15 16:37:00, Duration: 4 doses or times, Stop date: Limited # of times Start Date: 07/31/15 Stop Date: 07/31/15 Status: Discontinued fentaNYL 50 microgram, Route: IVP, Q5Min, Dosing Weight 126.364, kg, PRN Pain Score 7-10, Start date: 07/31/15 16:37:00, Duration: 2 doses or times, Stop date: Limited # of times Start Date: 07/31/15 Stop Date: 07/31/15 Status: Completed fentaNYL (ANES) Route: IV, Drug form: INJ, ONCE, Stop date: 07/31/15 13:50:00 Start Date: 07/31/15 Stop Date: 07/31/15 Status: Completed fentaNYL (ANES) Route: IV, Drug form: INJ, ONCE, Stop date: 07/31/15 14:15:00 Start Date: 07/31/15 Stop Date: 07/31/15 Status: Completed flumazenil 0.2 mg, Route: IVP, PRN, Dosing Weight 126.364, kg, PRN Benzodiazepine Reversal, Initial dose, Start date: 07/31/15 16:37:00, Duration: 30 day, Stop date: 08/29 16:36:00 Start Date: 07/31/15 Stop Date: 07/31/15 Status: Discontinued gabapentin 100 mg oral capsule 200 mg=2 cap, PO, TID, # 720 cap, 0 Refill(s) Start Date: 07/24/15 Status: Ordered glucagon 1 mg, Route: IM, Drug form: PDR/INJ, PRN, Dosing Weight 126.364, kg, PRN Blood G lucose Results, Start date: 08/01/15 7:25:00, Duration: 30 day, Stop date: 08/30 7:24:00 Start Date: 08/01/15 Stop Date: 08/01/15 Status: Discontinued glycopyrrolate 0.2 mg, Route: IVP, Q5Min, Dosing Weight 126.364, kg, PRN Bradycardia, Start jeanna e: 07/31/15 16:37:00, Duration: 3 doses or times, Stop date: Limited # of times Start Date: 07/31/15 Stop Date: 07/31/15 Status: Discontinued hydrALAZINE 10 mg, Route: IVP, Q20Min, Dosing Weight 126.364, kg, PRN Elevated BP, Start jeanna e: 07/31/15 16:37:00, Duration: 2 doses or times, Stop date: Limited # of times Start Date: 07/31/15 Stop Date: 07/31/15 Status: Discontinued hydromorphone 0.5 mg, Route: IVP, Q5Min, Dosing Weight 126.364, kg, PRN Pain Score 7-10, Start date: 07/31/15 16:37:00, Duration: 4 doses or times, Stop date: Limited # of ti mes Start Date: 07/31/15 Stop Date: 07/31/15 Status: Discontinued insulin aspart 5 unit, 0.05 mL, Route: SUB-Q, Drug form: SOLN, TID-Before Meals, Dosing Weight 126.364, kg, PRN Blood Glucose Results, Start date: 08/01/15 7:25:00, Duration: 30 day, Stop date: 08/31/15 7:24:00 Notes: Roll in palms of hands gently; Do not shake vigorously. (Same as: Juan Hendricks)"single patient use only"WASTE: F/P - Black; E - Municipal Trash Bin Stable f or 28 days at room temperature.Expires in days from Date Start Date: 08/01/15 Stop Date: 08/01/15 Status: Discontinued insulin aspart 4 unit, 0.04 mL, Route: SUB-Q, Drug form: SOLN, TID-Before Meals, Dosing Weight 126.364, kg, PRN Blood Glucose Results, Start date: 08/01/15 7:25:00, Duration: 30 day, Stop date: 08/31/15 7:24:00 Notes: Roll in palms of hands gently; Do not shake vigorously. (Same as: NovoCONSTANZA Henrdicks)"single patient use only"WASTE: F/P - Black; E - Municipal Trash Bin Stable f or 28 days at room temperature.Expires in days from Date Start Date: 08/01/15 Stop Date: 08/01/15 Status: Discontinued insulin aspart 1 unit, 0.01 mL, Route: SUB-Q, Drug form: SOLN, TID-Before Meals, Dosing Weight 126.364, kg, PRN Blood Glucose Results, Start date: 08/01/15 7:25:00, Duration: 30 day, Stop date: 08/31/15 7:24:00 Notes: Roll in palms of hands gently; Do not shake vigorously. (Same as: NovoCONSTANZA Hendricks)"single patient use only"WASTE: F/P - Black; E - Municipal Trash Bin Stable f or 28 days at room temperature.Expires in days from Date Start Date: 08/01/15 Stop Date: 08/01/15 Status: Discontinued insulin aspart 3 unit, 0.03 mL, Route: SUB-Q, Drug form: SOLN, TID-Before Meals, Dosing Weight 126.364, kg, PRN Blood Glucose Results, Start date: 08/01/15 7:25:00, Duration: 30 day, Stop date: 08/31/15 7:24:00 Notes: Roll in palms of hands gently; Do not shake vigorously. (Same as: NovoCONSTANZA Hendricks)"single patient use only"WASTE: F/P - Black; E - Municipal Trash Bin Stable f or 28 days at room temperature.Expires in days from Date Start Date: 08/01/15 Stop Date: 08/01/15 Status: Discontinued insulin aspart 2 unit, 0.02 mL, Route: SUB-Q, Drug form: SOLN, TID-Before Meals, Dosing Weight 126.364, kg, PRN Blood Glucose Results, Start date: 08/01/15 7:25:00, Duration: 30 day, Stop date: 08/31/15 7:24:00 Notes: Roll in palms of hands gently; Do not shake vigorously. (Same as: NovoCONSTANZA Hendricks)"single patient use only"WASTE: F/P - Black; E - Municipal Trash Bin Stable f or 28 days at room temperature.Expires in days from Date Start Date: 08/01/15 Stop Date: 08/01/15 Status: Discontinued ketOROLAC 30 mg, Route: IVP, ONCE, Dosing Weight 126.364, kg, Start date: 07/31/15 16:37:0 0, Duration: 1 doses or times, Stop date: 07/31/15 16:37:00 Start Date: 07/31/15 Stop Date: 07/31/15 Status: Discontinued Lactated Ringers Injection IV 1000 mL 1,000 mL, Rate: 25 ml/hr, Infuse over: 40 hr, Route: IV, Dosing Weight 126.364 k g, Total Volume: 1,000, Start date: 07/31/15 10:27:00, Duration: 30 day, Stop da te: 08/30/15 10:26:00 Start Date: 07/31/15 Stop Date: 07/31/15 Status: Discontinued Levsin SL 0.125 mg sublingual tablet 0.125 mg=1 tab, SL, Q4H, for bladder spasms, # 30 tab, 0 Refill(s) Start Date: 08/01/15 Status: Ordered meperidine 12.5 mg, Route: IVP, Q30Min, Dosing Weight 126.364, kg, PRN Other -See Comment, For shivering, Start date: 07/31/15 16:37:00, Duration: 2 doses or times, Stop d ate: Limited # of times Start Date: 07/31/15 Stop Date: 07/31/15 Status: Discontinued metoprolol 1 mg, Route: IVP, Q5Min, Dosing Weight 126.364, kg, PRN Other -See Comment, Star t date: 07/31/15 16:37:00, Duration: 5 doses or times, Stop date: Limited # of t imes Start Date: 07/31/15 Stop Date: 07/31/15 Status: Discontinued metoprolol 25 mg oral tablet, extended release 25 mg=1 tab, PO, Daily, # 30 tab, 0 Refill(s) Start Date: 07/24/15 Status: Ordered midazolam (ANES) Route: IV, Drug form: SOLN, ONCE, Stop date: 07/31/15 13:45:00 Start Date: 07/31/15 Stop Date: 07/31/15 Status: Completed morphine Sulfate 2 mg, 1 mL, Route: IVP, Drug form: INJ, Q3H, Dosing Weight 126.364, kg, PRN Pain Score 1-3, Start date: 07/31/15 16:54:00, Duration: 30 day, Stop date: 08/30/15 16:53:00 Notes: (Same as:MORPhine Sulfate) Start Date: 07/31/15 Stop Date: 08/01/15 Status: Discontinued morphine Sulfate 2 mg, Route: IVP, Q5Min, Dosing Weight 126.364, kg, PRN Pain Score 4-6, Start da te: 07/31/15 16:37:00, Duration: 5 doses or times, Stop date: Limited # of times Start Date: 07/31/15 Stop Date: 07/31/15 Status: Discontinued morphine Sulfate 4 mg, Route: IVP, Q5Min, Dosing Weight 126.364, kg, PRN Pain Score 7-10, Start d ate: 07/31/15 16:37:00, Duration: 3 doses or times, Stop date: Limited # of time s Start Date: 07/31/15 Stop Date: 07/31/15 Status: Discontinued naloxone 0.04 mg, Route: IVP, Q2MIN, Dosing Weight 126.364, kg, PRN Narcotic Reversal, St art date: 07/31/15 16:37:00, Duration: 8 doses or times, Stop date: Limited # of times Start Date: 07/31/15 Stop Date: 07/31/15 Status: Discontinued nitroglycerin 0.4 mg sublingual tablet 0.4 mg, 1 tab, Route: SL, Drug form: TAB, Q5Min, PRN Chest Pain, Start date: 11/08 21:04:00, Duration: 30 day, Stop date: 08/30/15 21:03:00 Notes: (Same as:Nitroquick, Nitrostat)"Do Not Crush" Sublingual tablet Start Date: 07/31/15 Stop Date: 08/01/15 Status: Discontinued norepinephrine (ANES) Route: IV, Drug form: INJ, ONCE, Stop date: 07/31/15 15:18:00 Start Date: 07/31/15 Stop Date: 07/31/15 Status: Completed normal saline 0.9% IV 500 mL 500 mL, Rate: 50 ml/hr, Infuse over: 10 hr, Route: IV, Dosing Weight 126.364 kg, Total Volume: 500, Start date: 07/31/15 11:36:00, Duration: 30 day, Stop date: 08/30/15 11:35:00 Start Date: 07/31/15 Stop Date: 08/01/15 Status: Discontinued ondansetron 4 mg, Route: IVP, ONCE, Dosing Weight 126.364, kg, PRN Nausea & Vomiting, Start date: 07/31/15 16:37:00 Start Date: 07/31/15 Stop Date: 07/31/15 Status: Completed ondansetron (ANES) Route: IV, Drug form: INJ, ONCE, Stop date: 07/31/15 16:25:00 Start Date: 07/31/15 Stop Date: 07/31/15 Status: Completed oxyCODONE 5 mg, Route: PO, Drug form: TAB, Q4H, Dosing Weight 126.364, kg, PRN Pain Score 4-6, Start date: 07/31/15 16:37:00, Duration: 30 day, Stop date: 08/30/15 16:36: 00 Start Date: 07/31/15 Stop Date: 07/31/15 Status: Discontinued oxyCODONE 10 mg, Route: PO, Drug form: TAB, Q4H, Dosing Weight 126.364, kg, PRN Pain Score 7-10, Start date: 07/31/15 16:37:00, Duration: 30 day, Stop date: 08/30/15 16:3 6:00 Start Date: 07/31/15 Stop Date: 07/31/15 Status: Discontinued phenylephrine (ANES) Route: IV, Drug form: INJ, ONCE, Stop date: 07/31/15 14:37:00 Start Date: 07/31/15 Stop Date: 07/31/15 Status: Completed phenylephrine (ANES) Route: IV, Drug form: INJ, ONCE, Stop date: 07/31/15 14:22:00 Start Date: 07/31/15 Stop Date: 07/31/15 Status: Completed promethazine 6.25 mg, Route: IVPB, ONCE, Dosing Weight 126.364, kg, PRN Nausea & Vomiting, Start date: 07/31/15 16:37:00 Start Date: 07/31/15 Stop Date: 07/31/15 Status: Discontinued propofol (ANES) Route: IV, Drug form: INJ, ONCE, Stop date: 07/31/15 13:50:00 Start Date: 07/31/15 Stop Date: 07/31/15 Status: Completed Rapaflo 8 mg oral capsule 8 mg=1 cap, PO, Daily, 0 Refill(s) Start Date: 07/24/15 Status: Ordered Sodium Chloride 0.9% IV (ANES) (ANES) Route: IV, Total Volume: 1,000, Start date: 07/31/15 13:09:00, Stop date: 14:09:00 Start Date: 07/31/15 Stop Date: 07/31/15 Status: Completed tamsulosin 0.4 mg oral capsule 0.4 mg=1 cap, PO, Daily, # 30 cap, 0 Refill(s) Start Date: 08/01/15 Status: Ordered tamsulosin 0.4 mg oral capsule 0.4 mg=1 cap, PO, Daily, # 30 cap, 0 Refill(s) Start Date: 07/24/15 Stop Date: 07/31/15 Status: Discontinued Tylenol with Codeine #3 oral tablet 1 - 2 tab, PO, Q4H, PRN Pain, X 4 day, # 36 tab, 0 Refill(s) Start Date: 07/31/15 Stop Date: 08/04/15 Status: Ordered vancomycin (ANES) (ANES) Route: IV, Drug form: INJ, Start date: 07/31/15 13:10:00, Stop date: 07/31/15 14 :10:00 Start Date: 07/31/15 Stop Date: 07/31/15 Status: Completed vancomycin + Sodium Chloride 0.9% IV 250 mL 1 gm, Route: IVPB, PRE OP, Dosing Weight 121, kg, Start date: 07/24/15 8:00:00, Duration: 30 day, Stop date: 08/23/15 7:59:00 Notes: TIME CRITICAL MEDICATION(Same As: Vancocin)Infusion rate< 1000 mg: infuse over 1 [id number] - 1500 mg: infuse over 1.5 [id number] - 2000 mg: infuse over 2 hours> 2001 mg: infuse over 2.5 hours MEDICATION WASTE Product Size: 1000 mgProduct Wasted: ___ mg Start Date: 07/24/15 Stop Date: 08/01/15 Status: Discontinued warfarin 4 mg oral tablet 4 mg=1 tab, PO, Daily, # 30 tab, 0 Refill(s) Start Date: 07/24/15 Stop Date: 07/31/15 Status: Discontinued Results ELECTROLYTES 1 2 3 Most recent to oldest [Reference Range]: 138 mEq/L (07/31/15 6:47 PM) 139 mEq/L (07/24/15 8:28 AM) Sodium Lvl [135-145 mEq/L] 4.1 mEq/L (07/31/15 6:47 PM) 4.4 mEq/L (07/31/15 10:15 AM) 3.8 mEq/L (07/24/15 8:28 AM) Potassium Lvl [3.5-5.1 mEq/L] 101 mEq/L (07/31/15 6:47 PM) 101 mEq/L (07/24/15 8:28 AM) Chloride Lvl [95-109 mEq/L] 28 mEq/L (07/31/15 6:47 PM) 33 mEq/L *HI* (07/24/15 8:28 AM) CO2 [24-32 mEq/L] 13.1 mEq/L (07/31/15 6:47 PM) 8.8 mEq/L *LOW* (07/24/15 8:28 AM) AGAP [10.0-20.0 mEq/L] CHEM PANEL 1 2 3 Most recent to oldest [Reference Range]: 4.79 mg/dL *HI* (07/31/15 6:47 PM) 4.28 mg/dL *HI* (07/24/15 8:28 AM) Creatinine Lvl [0.50-1.40 mg/dL] 13 mL/min/1.73m2 1 *NA* (07/31/15 6:47 PM) 15 mL/min/1.73m2 2 *NA* (07/24/15 8:28 AM) eGFR 31 mg/dL *HI* (07/31/15 6:47 PM) 29 mg/dL *HI* (07/24/15 8:28 AM) BUN [7-22 mg/dL] 151 mg/dL *HI* (07/31/15 6:47 PM) 132 mg/dL *HI* (07/31/15 10:15 AM) 163 mg/dL *HI* (07/24/15 8:28 AM) Glucose Lvl [70-99 mg/dL] 8.2 mg/dL *LOW* (07/31/15 6:47 PM) 8.6 mg/dL (07/24/15 8:28 AM) Calcium Lvl [8.5-10.5 mg/dL] 1Result Comment: The eGFR is calculated using the CKD-EPI formula. In most young, healthy individuals the eGFR will be >90 mL/min/1.73m2. The eGFR declines with age. An eGFR of 60-89 may be normal in some populations, particularly the elderly, for whom the CKD-EPI formula has not been extensively validated. Use of the eGFR is not recommended in the following populations: Individuals with unstable creatinine concentrations, including patients and those with serious co-morbid conditions. Patients with extremes in muscle mass or diet. The data above are obtained from the National Kidney Disease Education Program ( NKDEP) which additionally recommends that when the eGFR is used in patients with extremes of body mass index for purposes of drug dosing, the eGFR should be mul tiplied by the estimated BMI. 2Result Comment: The eGFR is calculated using the CKD-EPI formula. In most young, healthy individuals the eGFR will be >90 mL/min/1.73m2. The eGFR declines with age. An eGFR of 60-89 may be normal in some populations, particularly the elderly, for whom the CKD-EPI formula has not been extensively validated. Use of the eGFR is not recommended in the following populations: Individuals with unstable creatinine concentrations, including patients and those with serious co-morbid conditions. Patients with extremes in muscle mass or diet. The data above are obtained from the National Kidney Disease Education Program ( NKDEP) which additionally recommends that when the eGFR is used in patients with extremes of body mass index for purposes of drug dosing, the eGFR should be mul tiplied by the estimated BMI. IMMUNOLOGY 1 2 3 Most recent to oldest [Reference Range]: Negative *NA* (07/31/15 10:15 AM) Hep Bs Ag [Negative] HEMATOLOGY 1 2 3 Most recent to oldest [Reference Range]: 5.9 K/CMM (07/24/15 8:28 AM) WBC [3.7-10.4 K/CMM] 3.94 M/CMM *LOW* (07/24/15 8:28 AM) RBC [4.70-6.10 M/CMM] 12.7 g/dL *LOW* (07/24/15 8:28 AM) Hgb [14.0-18.0 g/dL] 38.3 % *LOW* (07/24/15 8:28 AM) Hct [42.0-54.0 %] 97.1 fL *HI* (07/24/15 8:28 AM) MCV [80.0-94.0 fL] 32.2 pg *HI* (07/24/15 8:28 AM) MCH [27.0-31.0 pg] 33.2 g/dL (07/24/15 8:28 AM) MCHC [32.0-36.0 g/dL] 14.3 % (07/24/15 8:28 AM) RDW [11.5-14.5 %] 177 K/CMM (07/24/15 8:28 AM) Platelet [133-450 K/CMM] 7.6 fL (07/24/15 8:28 AM) MPV [7.4-10.4 fL] 71.0 % (07/24/15 8:28 AM) Segs [45.0-75.0 %] 18.5 % *LOW* (07/24/15 8:28 AM) Lymphocytes [20.0-40.0 %] 9.1 % (07/24/15 8:28 AM) Monocytes [2.0-12.0 %] 1.1 % (07/24/15 8:28 AM) Eosinophils [0.0-4.0 %] 0.3 % (07/24/15 8:28 AM) Basophils [0.0-1.0 %] 4.2 K/CMM (07/24/15 8:28 AM) Segs-Bands # [1.5-8.1 K/CMM] 1.1 K/CMM (07/24/15 8:28 AM) Lymphocytes # [1.0-5.5 K/CMM] 0.5 K/CMM (07/24/15 8:28 AM) Monocytes # [0.0-0.8 K/CMM] 0.1 K/CMM (07/24/15 8:28 AM) Eosinophils # [0.0-0.5 K/CMM] 14.5 seconds (07/31/15 10:15 AM) 17.2 seconds *HI* (07/24/15 8:28 AM) PT [12.0-14.7 seconds] 1.10 (07/31/15 10:15 AM) 1.37 *HI* (07/24/15 8:28 AM) INR [0.85-1.17] 34.5 seconds (07/31/15 10:15 AM) 36.4 seconds *HI* (07/24/15 8:28 AM) PTT [22.9-35.8 seconds] Immunizations Vaccine Date Refusal Reason pneumococcal 23-valent [...] Smoking Cessation Counseling No Assessment and Plan Extracted from: Title: Clinical Document Author: Jevon Romero MD Date: 08/01/15 Progress Daily [facility] Completed: Monday, AUG 01, 2015, 13:21 by Jevon Romero MD RM: [address] - [address]W, SE [id number] (: 1960) M Attending: Ezequiel Shafer MDPhone: Service: Thoracic/Cardiac [facility] Service Reason for Admission: N18.6 Working DRG: None Documented Code status: Full Code [Ordered]Current diet: Isolation: None Documented Allergies: NKDA SUBJECTIVE No acute events had severe bladder spasms last night, better today OBJECTIVE General: NAD, AAO Abdomen: Soft, nontender, nondistended : urine tinged ASSESSMENT & EXAM POD 1 s/p TUIP, TUVP PLAN & TREATMENT ok to d/c home with arroyo from urology follow up next week for arroyo removal, my office will call him DIAGNOSES & PROBLEMS Ready for Discharge (Yes/No)? Arroyo still necessary (Yes/No): Line still necessary (Yes/No): 24hr Labs 08/01 1153 Glucose [id number] H 08/01 0734 Glucose HNS189 H 07/31 1847 Glucose Zhc031 H BUN31 H Creatinine Lvl4.79 H Sodium Eps742 Potassium Lvl4.1 Chloride Qtp801 CO228 AGAP13.1 Calcium Lvl8.2 L eGFR13 VitalsTmp(F)[id number] 08/01 08:0099.720258/489054--- 08/01 03:4698.352113/412442--- 07/31 23:3098.384773/757184--- 07/31 20:2497.426139/780334--- 07/31 19:00----[id number]--- 24 Hr Tmax: 99.3F (37.39c) at 08/01 08:00Vital Signs are the last 5 in the past 48 hours. DateWt(kg)Wt(lb)Ht(cm)Ht(in)Method 07/24 (initial)126.36 278.00Measured 56388.96 74.00Stated I&ORecordInOutBal 07/623hr Tot 1 0 1 07/523hr Tot 1247 1060 187 Medications (31) Active Scheduled Meds: None Unscheduled Meds (2): 07/24/15 ceFAZolin (Ancef) 2 gm IVPB PRE OP 200 ml/hr 07/24/15 vancomycin + Sodium Chloride 0.9% IV 250 mL 1 gm IVPB PRE OP 250 ml/hr PRN Meds (13): 08/01/15 Dextrose 50% in Water IV (Dextrose 50% Syringe) 12.5 gm IVP PRN 08/01/15 Dextrose 50% in Water IV (Dextrose 50% Syringe) 25 gm IVP PRN 07/31/15 acetaminophen-codeine (acetaminophen-codeine #3) 1 tab PO Q4H 07/31/15 acetaminophen-codeine (acetaminophen-codeine #3) 2 tab PO Q4H 07/31/15 atropine 0.5 mg IVP PRN 08/01/15 glucagon 1 mg IM PRN 08/01/15 insulin aspart 1 unit SUB-Q TID-Before Meals 08/01/15 insulin aspart 2 unit SUB-Q TID-Before Meals 08/01/15 insulin aspart 3 unit SUB-Q TID-Before Meals 08/01/15 insulin aspart 4 unit SUB-Q TID-Before Meals 08/01/15 insulin aspart 5 unit SUB-Q TID-Before Meals 07/31/15 morphine Sulfate 2 mg IVP Q3H 07/31/15 nitroglycerin (nitroglycerin 0.4 mg sublingual tablet) 0.4 mg SL Q5Min One Time Meds (15): 07/31/15 (Completed) belladonna-opium (belladonna-opium 16.2 mg-60 mg rectal suppository) 1 supp FL ONCE (Completed) ceFAZolin (ceFAZolin (ANES)) IV ONCE (Completed) ceFAZolin (ceFAZolin (ANES)) IV ONCE (Completed) ciprofloxacin (ciprofloxacin (ANES)) IV ONCE (Completed) fentaNYL (fentaNYL (ANES)) IV ONCE (Completed) fentaNYL (fentaNYL (ANES)) IV ONCE 07/31/15 (Discontinued) ketOROLAC 30 mg IVP ONCE (Completed) midazolam (midazolam (ANES)) IV ONCE (Completed) norepinephrine (norepinephrine (ANES)) IV ONCE (Completed) ondansetron (ondansetron (ANES)) IV ONCE (Completed) phenylephrine (phenylephrine (ANES)) IV ONCE (Completed) phenylephrine (phenylephrine (ANES)) IV ONCE (Completed) propofol (propofol (ANES)) IV ONCE 07/31/15 (Voided With Results) tolterodine (Detrol LA) 4 mg PO ONCE 07/31/15 (Completed) tolterodine (Detrol LA) 4 mg PO ONCE Continuous Infusions (1): 07/31/15 Sodium Chloride 0.9% IV 500 mL (normal saline 0.9% IV 500 mL) 500 mL 50 ml/hr
--- OUTSIDE RECORDS SUMMARY | 2018-05-25 20:34 | XMS REPORT | Continuity of Care Document ---
Author Author [facility] Interface Address Unknown Phone Unavailable Problems Problem Status Onset Date Classification Date Reported Comments Source Other specified complication of vascular prosthetic devices, implants and grafts, initial encounter 10/05/2017 12/28/2017 [facility] UNK Active 08/30/2017 [facility] LAB Active 11/30/2016 [facility] LABS Active 09/23/2016 [facility] Discharge Diagnosis: Cough 06/24/2016 06/27/2016 [facility] Discharge Diagnosis: Acute upper respiratory infection, unspecified 06/24/2016 06/27/2016 [facility] COUGH, VOMITING, VOMITING Active 06/24/2016 [facility] PRE OP CLEARANCE FOR RENAL TRANSPLANT Active 02/08/2016 [facility] CCL/R Active 02/08/2016 [facility] PAIN IN RIGHT LEG; DYSPNEA, UNSPECIFIED Active 02/05/2016 [facility] BDDC-COLON SCREENING Active 01/06/2016 [facility] PA KIDNEY ACCT FC USE ONLY Active 12/23/2015 [facility] COLONOSCOPY SCREENING Active 12/23/2015 [facility] CARDIAC CLEARANCE Active 12/23/2015 [facility] PRE RENAL EVAL Active 12/03/2015 [facility] M79.609 Active 07/21/2015 [facility] N18.6 Active 07/21/2015 [facility] Discharge Diagnosis: Encounter for postoperative wound check 03/27/2015 03/30/2015 [facility] ARM PAIN Active 03/27/2015 [facility] BPH Active Problem 12/28/2017 [facility] Diabetes Active Problem 08/04/2015 [facility] Enlarged prostate Active Problem 12/28/2017 [facility] ESRD on dialysis Active Problem 12/28/2017 [facility] Hypertension Active Problem 08/04/2015 [facility] Renal failure Resolved Problem 08/04/2015 [facility] Compression of vein 12/28/2017 [facility] Hypertensive chronic kidney disease with stage 5 chronic kidney disease or end stage renal disease 12/28/2017 [facility] End stage renal disease 12/28/2017 [facility] Dependence on renal dialysis 12/28/2017 [facility] Atherosclerotic heart disease of [place] coronary artery without angina pectoris 12/28/2017 [facility] Diabetes mellitus type 2 Active Problem 12/28/2017 [facility] DM (<span ID="[id number]</span>) Active Problem 12/28/2017 [facility] ESRD (<span ID="[id number]">Confirmed</span>) Active Problem 12/28/2017 [facility] Hypertensive nephrosclerosis Active Problem 12/28/2017 [facility] Obesity Active Problem 12/28/2017 [facility] Obstructive uropathy Active Problem 12/28/2017 [facility] Polyp of prostate Active Problem 12/28/2017 [facility] END STAGE RENAL DISEASE Active [facility] PAIN IN UNSPECIFIED LIMB Active [facility] ENLARGED PROSTATE WITH LOWER URINARY TRA Active [facility] ENCNTR FOR GENERAL ADULT MEDICAL EXAM W/ Active [facility] ENCOUNTER FOR PREPROCEDURAL LABORATORY E Active [facility] UNSP COMP OF CARDIAC AND VASCULAR PROSTH Active [facility] Medications Medication Details Route Status Patient Instructions Ordering Provider Order Date Source ondansetron (ANES) Route: IV, Drug form: INJ, ONCE, Stop date: 09/21/17 11:41:00 CDT Inactive 09/21/2017 [facility] metoclopramide (ANES) Route: IV, Drug form: INJ, ONCE, Stop date: 09/21/17 11:36:00 CDT Inactive 09/21/2017 [facility] fentaNYL (ANES) Route: IV, Drug form: INJ, ONCE, Stop date: 09/21/17 11:36:00 CDT Inactive 09/21/2017 [facility] midazolam (ANES) Route: IV, Drug form: SOLN, ONCE, Stop date: 09/21/17 11:36:00 CDT Inactive 09/21/2017 [facility] propofol (ANES) Route: IV, Drug form: INJ, ONCE, Stop date: 09/21/17 11:36:00 CDT Inactive 09/21/2017 [facility] lidocaine (ANES) Route: IV, Drug form: INJ, ONCE, Stop date: 09/21/17 11:36:00 CDT Inactive 09/21/2017 [facility] ceFAZolin (ANES) Route: IV, Drug form: INJ, ONCE, Stop date: 09/21/17 11:36:00 CDT Inactive 09/21/2017 [facility] phenylephrine (ANES) Route: IV, Drug form: INJ, ONCE, Stop date: 09/21/17 11:36:00 CDT Inactive 09/21/2017 [facility] ePHEDrine (ANES) Route: IV, Drug form: INJ, ONCE, Stop date: 09/21/17 11:36:00 CDT Inactive 09/21/2017 [facility] vancomycin (ANES) 1000 mg Route: IV, Drug form: INJ, Start date: 09/21/17 10:30:00 CDT, Stop date: 09/21/17 11:30:00 CDT Inactive 09/21/2017 [facility] Sodium Chloride 0.9% IV (ANES) 500 mL Route: IV, Total Volume: 500, Start date: 09/21/17 10:12:00 CDT, Stop date: 09/21/17 11:12:00 CDT Inactive 09/21/2017 [facility] Albuterol 0.833 MG/ML / Ipratropium [place] 0.167 MG/ML Inhalant Solution 3 mL, Route: NEB, Dosing Weight 127.727, kg, ONCE, STAT, Start date: 09/21/17 6:35:00 CDT, Stop date: 09/21/17 6:35:00 CDT Inactive 09/21/2017 [facility] Sodium Chloride 0.9% IV 500 mL 500 mL, Rate: 25 ml/hr, Infuse over: 20 hr, Route: IV, Dosing Weight 127.727 kg, Total Volume: 500, Start date: 09/21/17 6:35:00 CDT, Duration: 30 day, Stop date: 10/21/17 6:34:00 CDT, 2.6, m2 Inactive 09/21/2017 [facility] Ancef + sterile water 20 mL 2 gm, Route: IV, Drug form: PDR/INJ, PRE OP, Dosing Weight 139.455, kg, Start date: 09/14/17 11:00:00 CDT, Duration: 1 day, Stop date: 09/15/17 10:59:00 CDT, ABX Indication: Surgical ProphylaxisNotes: (Same As: Ancef, Kefzol) MEDICATION WASTE Product Size: 1000 mg Product Wasted: ___ mg No Longer Active 09/14/2017 [facility] Vancomycin 1 gm, Route: IVPB, PRE OP, Dosing Weight 139.455, kg, Start date: 09/14/17 11:00:00 CDT, Duration: 1 day, Stop date: 09/15/17 10:59:00 CDT, ABX Indication: Surgical ProphylaxisNotes: TIME CRITICAL MEDIC ATION (Same As: Vancocin) Infusion rate 2001 mg: infuse over 2.5 hours For adult patients only: Round to nearest 250 mg per Medical Staff approval MEDICATION WASTE Product Size: 1000 mg Product Wasted: ___ mg No Longer Active 09/14/2017 [facility] Aspirin 81 MG Enteric Coated Tablet 81 mg=1 tab, PO, Daily, # 90 tab, 3 Refill(s) Active 09/14/2017 [facility] pantoprazole 40 mg oral enteric coated tablet 40 mg=1 tab, PO, Daily, 0 Refill(s) Active 09/14/2017 [facility] Insulin Glargine 100 UNT/ML Injectable Solution [Lantus] 65 unit, SUB-Q, Bedtime, # 10 mL, 3 Refill(s) Active 09/14/2017 [facility] buPROPion 150 mg/12 hours (SR) oral tablet, extended release 150 mg=1 tab, PO, BID, 0 Refill(s) Active 09/14/2017 [facility] atorvastatin 20 mg oral tablet 20 mg=1 tab, PO, Bedtime, # 30 tab, 3 Refill(s), Pharmacy: [id number] Active 02/05/2016 [facility] Heart Failure GoLYTELY oral powder for reconstitution 240 mL, PO, Q10Min, # 1 ea, 0 Refill(s), Pharmacy: [id number] Active 01/06/2016 [facility] Melatonin 10 mg oral capsule 20 mg=2 cap, PO, Bedtime, 0 Refill(s) Active 12/23/2015 [facility] sertraline 100 mg oral tablet 100 mg=1 tab, PO, Daily, # 30 tab, 0 Refill(s) Active 12/23/2015 [facility] gabapentin 400 MG Oral Capsule 400 mg=1 cap, PO, TID, # 90 cap, 1 Refill(s) Active 12/23/2015 [facility] glyBURIDE 2.5 mg oral tablet 2.5 mg=1 tab, PO, Breakfast, # 30 tab, 0 Refill(s) Active 12/23/2015 [facility] tramadol hydrochloride 50 MG Oral Tablet 50 mg=1 tab, PO, Q6H, PRN Pain, # 40 tab, 0 Refill(s) Active 12/23/2015 [facility] Acetaminophen 325 MG / Hydrocodone Bitartrate 5 MG Oral Tablet 1 tab, PO, Q4H, PRN Pain, # 60 tab, 0 Refill(s) Active 08/01/2015 [facility] Hyoscyamine Sulfate 0.125 MG Sublingual Tablet [Levsin] 0.125 mg=1 tab, SL, Q4H, for bladder spasms, # 30 tab, 0 Refill(s) Active 08/01/2015 [facility] tamsulosin 0.4 mg oral capsule 0.4 mg=1 cap, PO, Daily, # 30 cap, 0 Refill(s) Active 08/01/2015 [facility] Insulin, Aspart, Human 5 unit, 0.05 mL, Route: SUB-Q, Drug form: SOLN, TID-Before Meals, Dosing Weight 126.364, kg, PRN Blood Glucose Results, Start date: 08/01/15 7:25:00, Duration: 30 day, Stop date: 08/31/15 7:24:00Notes: Roll in palms of hands gently; Do not shake vigorously. (Same as: NovoLOG) "single patient use only" WASTE: F/P - Black; E - [employer] Trash Bin Stable for 28 days at room temperature. Expires in days from Date Inactive 08/01/2015 [facility] Dextrose 50% Syringe 12.5 gm, 25 mL, Route: IVP, Drug Form: INJ, Dosing Weight 126.364, kg, PRN, PRN Blood Glucose Results, Start date: 08/01/15 7:25:00, Duration: 30 day, Stop date: 08/31/15 7:24:00 Inactive 08/01/2015 [facility] Glucagon 1 mg, Route: IM, Drug form: PDR/INJ, PRN, Dosing Weight 126.364, kg, PRN Blood Glucose Results, Start date: 08/01/15 7:25:00, Duration: 30 day, Stop date: 08/31/15 7:24:00 Inactive 08/01/2015 [facility] nitroglycerin 0.4 mg sublingual tablet 0.4 mg, 1 tab, Route: SL, Drug form: TAB, Q5Min, PRN Chest Pain, Start date: 07/31/15 21:04:00, Duration: 30 day, Stop date: 08/30/15 21:03:00Notes: (Same as:Nitroquick, Nitrostat) "Do Not Crush" Sublingual tablet No Longer Active 08/01/2015 [facility] atropine 0.5 mg, 5 mL, Route: IVP, Drug form: INJ, PRN, PRN Bradycardia, Start date: 07/31/15 21:04:00, Duration: 30 day, Stop date: 08/30/15 21:03:00 No Longer Active 08/01/2015 [facility] Detrol LA 4 mg, 1 cap, Route: PO, Drug form: CAP, ONCE, Dosing Weight 126.364, kg, Start date: 07/31/15 19:04:00, Stop date: 07/31/15 19:04:00Notes: Do Not Crush. (Same As: Detrol LA) Inactive 08/01/2015 [facility] Detrol LA 4 mg, 1 cap, Route: PO, Drug form: CAP, ONCE, Dosing Weight 126.364, kg, Start date: 07/31/15 18:08:00, Stop date: 07/31/15 18:08:00Notes: Do Not Crush. (Same As: Detrol LA) Inactive 08/01/2015 [facility] Morphine 2 mg, 1 mL, Route: IVP, Drug form: INJ, Q3H, Dosing Weight 126.364, kg, PRN Pain Score 1-3, Start date: 07/31/15 16:54:00, Duration: 30 day, Stop date: 08/30/15 16:53:00Notes: (Same as:MORPhine Sulfate) No Longer Active 07/31/2015 [facility] acetaminophen-codeine #3 1 tab, Route: PO, Drug Form: TAB, Dosing Weight 126.364, kg, Q4H, PRN Pain Score 4-6, Start date: 07/31/15 16:54:00, Duration: 30 day, Stop date: 08/30/15 16:53:00Notes: Do not exceed 4gm/day of acetaminophen. (Same as: Tylenol with Codeine # 3) No Longer Active 07/31/2015 [facility] Belladonna Alkaloids 16.2 MG / Opium 60 MG Rectal Suppository 1 supp, Route: MN, Dosing Weight 126.364, kg, ONCE, Start date: 07/31/15 16:49:00, Stop date: 07/31/15 16:49:00 Inactive 07/31/2015 [facility] Hydromorphone 0.5 mg, Route: IVP, Q5Min, Dosing Weight 126.364, kg, PRN Pain Score 7-10, Start date: 07/31/15 16:37:00, Duration: 4 doses or times, Stop date: Limited # of times Inactive 07/31/2015 [facility] Morphine 2 mg, Route: IVP, Q5Min, Dosing Weight 126.364, kg, PRN Pain Score 4-6, Start date: 07/31/15 16:37:00, Duration: 5 doses or times, Stop date: Limited # of times Inactive 07/31/2015 [facility] Ketorolac 30 mg, Route: IVP, ONCE, Dosing Weight 126.364, kg, Start date: 07/31/15 16:37:00, Duration: 1 doses or times, Stop date: 07/31/15 16:37:00 Inactive 07/31/2015 [facility] Oxycodone 5 mg, Route: PO, Drug form: TAB, Q4H, Dosing Weight 126.364, kg, PRN Pain Score 4-6, Start date: 07/31/15 16:37:00, Duration: 30 day, Stop date: 08/30/15 16:36:00 Inactive 07/31/2015 [facility] Glycopyrrolate 0.2 mg, Route: IVP, Q5Min, Dosing Weight 126.364, kg, PRN Bradycardia, Start date: 07/31/15 16:37:00, Duration: 3 doses or times, Stop date: Limited # of times Inactive 07/31/2015 [facility] Ondansetron 4 mg, Route: IVP, ONCE, Dosing Weight 126.364, kg, PRN Nausea & Vomiting, Start date: 07/31/15 16:37:00 Inactive 07/31/2015 [facility] Naloxone 0.04 mg, Route: IVP, Q2MIN, Dosing Weight 126.364, kg, PRN Narcotic Reversal, Start date: 07/31/15 16:37:00, Duration: 8 doses or times, Stop date: Limited # of times Inactive 07/31/2015 [facility] Flumazenil 0.2 mg, Route: IVP, PRN, Dosing Weight 126.364, kg, PRN Benzodiazepine Reversal, Initial dose, Start date: 07/31/15 16:37:00, Duration: 30 day, Stop date: 08/30/15 16:36:00 Inactive 07/31/2015 [facility] Diphenhydramine 12.5 mg, Route: IVP, Drug form: INJ, Q6H, Dosing Weight 126.364, kg, PRN Itching, Start date: 07/31/15 16:37:00, Duration: 30 day, Stop date: 08/30/15 16:36:00 Inactive 07/31/2015 [facility] Fentanyl 25 microgram, Route: IVP, Q5Min, Dosing Weight 126.364, kg, PRN Pain Score 4-6, Start date: 07/31/15 16:37:00, Duration: 4 doses or times, Stop date: Limited # of times Inactive 07/31/2015 [facility] Meperidine 12.5 mg, Route: IVP, Q30Min, Dosing Weight 126.364, kg, PRN Other -See Comment, For shivering, Start date: 07/31/15 16:37:00, Duration: 2 doses or times, Stop date: Limited # of times Inactive 07/31/2015 [facility] Dexamethasone 4 mg, Route: IVP, ONCE, Dosing Weight 126.364, kg, PRN Nausea & Vomiting, Start date: 07/31/15 16:37:00 Inactive 07/31/2015 [facility] Promethazine 6.25 mg, Route: IVPB, ONCE, Dosing Weight 126.364, kg, PRN Nausea & Vomiting, Start date: 07/31/15 16:37:00 Inactive 07/31/2015 [facility] Metoprolol 1 mg, Route: IVP, Q5Min, Dosing Weight 126.364, kg, PRN Other -See Comment, Start date: 07/31/15 16:37:00, Duration: 5 doses or times, Stop date: Limited # of times Inactive 07/31/2015 [facility] Hydralazine 10 mg, Route: IVP, Q20Min, Dosing Weight 126.364, kg, PRN Elevated BP, Start date: 07/31/15 16:37:00, Duration: 2 doses or times, Stop date: Limited # of times Inactive 07/31/2015 [facility] ceFAZolin (ANES) Route: IV, Drug form: INJ, ONCE, Stop date: 07/31/15 16:25:00 Inactive 07/31/2015 [facility] ondansetron (ANES) Route: IV, Drug form: INJ, ONCE, Stop date: 07/31/15 16:25:00 Inactive 07/31/2015 [facility] Ciprofloxacin 250 MG Oral Tablet [Cipro] 250 mg=1 tab, PO, Q12H, X 7 day, # 14 tab, 0 Refill(s) Active 07/31/2015 [facility] Acetaminophen 300 MG / Codeine Phosphate 30 MG Oral Tablet [Tylenol with Codeine #3] 1 - 2 tab, PO, Q4H, PRN Pain, X 4 day, # 36 tab, 0 Refill(s) Active 07/31/2015 [facility] norepinephrine (ANES) Route: IV, Drug form: INJ, ONCE, Stop date: 07/31/15 15:18:00 Inactive 07/31/2015 [facility] ciprofloxacin (ANES) Route: IV, Drug form: INJ, ONCE, Stop date: 07/31/15 14:52:00 Inactive 07/31/2015 [facility] phenylephrine (ANES) Route: IV, Drug form: INJ, ONCE, Stop date: 07/31/15 14:37:00 Inactive 07/31/2015 [facility] phenylephrine (ANES) Route: IV, Drug form: INJ, ONCE, Stop date: 07/31/15 14:22:00 Inactive 07/31/2015 [facility] fentaNYL (ANES) Route: IV, Drug form: INJ, ONCE, Stop date: 07/31/15 14:15:00 Inactive 07/31/2015 [facility] fentaNYL (ANES) Route: IV, Drug form: INJ, ONCE, Stop date: 07/31/15 13:50:00 Inactive 07/31/2015 [facility] ceFAZolin (ANES) Route: IV, Drug form: INJ, ONCE, Stop date: 07/31/15 13:50:00 Inactive 07/31/2015 [facility] propofol (ANES) Route: IV, Drug form: INJ, ONCE, Stop date: 07/31/15 13:50:00 Inactive 07/31/2015 [facility] midazolam (ANES) Route: IV, Drug form: SOLN, ONCE, Stop date: 07/31/15 13:45:00 Inactive 07/31/2015 [facility] vancomycin (ANES) (ANES) Route: IV, Drug form: INJ, Start date: 07/31/15 13:10:00, Stop date: 07/31/15 14:10:00 Inactive 07/31/2015 [facility] Sodium Chloride 0.9% IV (ANES) (ANES) Route: IV, Total Volume: 1,000, Start date: 07/31/15 13:09:00, Stop date: 07/31/15 14:09:00 Inactive 07/31/2015 [facility] normal saline 0.9% IV 500 mL 500 mL, Rate: 50 ml/hr, Infuse over: 10 hr, Route: IV, Dosing Weight 126.364 kg, Total Volume: 500, Start date: 07/31/15 11:36:00, Duration: 30 day, Stop date: 08/30/15 11:35:00 No Longer Active 07/31/2015 [facility] Calcium Chloride 0.0014 MEQ/ML / Potassium Chloride 0.004 MEQ/ML / Sodium Chloride 0.103 MEQ/ML / Sodium Lactate 0.028 MEQ/ML Injectable Solution 1,000 mL, Rate: 25 ml/hr, Infuse over: 40 hr, Route: IV, Dosing Weight 126.364 kg, Total Volume: 1,000, Start date: 07/31/15 10:27:00, Duration: 30 day, Stop date: 08/30/15 10:26:00 Inactive 07/31/2015 [facility] tadalafil 5 MG Oral Tablet [Cialis] 5 mg=1 tab, PO, Daily, # 30 tab, 0 Refill(s) Active 07/24/2015 [facility] metoprolol 25 mg oral tablet, extended release 25 mg=1 tab, PO, Daily, # 30 tab, 0 Refill(s) Active 07/24/2015 [facility] silodosin 8 MG Oral Capsule [Rapaflo] 8 mg=1 cap, PO, Daily, 0 Refill(s) Active 07/24/2015 [facility] doxycycline monohydrate 100 mg oral tablet 100 mg=1 tab, PO, Q12H, # 28 tab, 0 Refill(s) Active 07/24/2015 [facility] tamsulosin 0.4 mg oral capsule 0.4 mg=1 cap, PO, Daily, # 30 cap, 0 Refill(s) No Longer Active 07/24/2015 [facility] warfarin 4 mg oral tablet 4 mg=1 tab, PO, Daily, # 30 tab, 0 Refill(s) No Longer Active 07/24/2015 [facility] gabapentin 100 MG Oral Capsule 200 mg=2 cap, PO, TID, # 720 cap, 0 Refill(s) Active 07/24/2015 [facility] escitalopram 20 mg oral tablet 20 mg=1 tab, PO, Daily, # 30 tab, 0 Refill(s) Active 07/24/2015 [facility] Ancef 2 gm, 100 mL, Route: IVPB, Drug form: INJ, PRE OP, Dosing Weight 121, kg, Start date: 07/24/15 8:00:00, Duration: 30 day, Stop date: 08/23/15 7:59:00Notes: Same as: Ancef No Longer Active 07/24/2015 [facility] Vancomycin 1 gm, Route: IVPB, PRE OP, Dosing Weight 121, kg, Start date: 07/24/15 8:00:00, Duration: 30 day, Stop date: 08/23/15 7:59:00Notes: TIME CRITICAL MEDICATION (Same As: Vancocin) Infusion rate 2001 mg: infuse over 2.5 hours MEDICATION WASTE Product Size: 1000 mg Product Wasted: ___ mg No Longer Active 07/24/2015 [facility] Allergies, Adverse Reactions, Alerts Substance Category Reaction Severity Reaction type Status Date Reported Comments Source Clindamycin Unknown Allergy to Substance Active 10/30/2017 [facility] Immunizations Immunization Date Given Site Status Last Updated Comments Source pneumococcal 23-valent vaccine 11/09/2014 Right deltoid completed [facility] Results Order Name Results Value Reference Range Date Interpretation Comments Source ELECTROLYTES Potassium Lvl 3.4 meq/L 3.5 - 5.1 09/21/2017 [facility] BLOOD BANK RESULTS ABO/Rh O POS 09/14/2017 [facility] BLOOD [facility] RESULTS Antibody Scrn Negative (09/14/17 10:14 AM) 09/14/2017 [facility] ELECTROLYTES AGAP 8.6 meq/L 10.0 - 20.0 09/14/2017 [facility] ELECTROLYTES eGFR 19 mL/min/1.73m2 09/14/2017 Result Comment: The eGFR is calculated using the [...] from the National Kidney Disease Education Program (NKDEP) which additionally recommends that when the eGFR is used in patients with extremes of body mass index for purposes of drug dosing, the eGFR should be multiplied by the estimated BMI. [facility] ELECTROLYTES CO2 34 meq/L 24 - 32 09/14/2017 [facility] ELECTROLYTES Calcium Lvl 8.6 mg/dL 8.5 - 10.5 09/14/2017 [facility] ELECTROLYTES Sodium Lvl 136 meq/L 135 - 145 09/14/2017 [facility] ELECTROLYTES Creatinine Lvl 3.35 mg/dL 0.50 - 1.40 09/14/2017 [facility] ELECTROLYTES Chloride Lvl 97 meq/L 95 - 109 09/14/2017 [facility] ELECTROLYTES Potassium Lvl 3.6 meq/L 3.5 - 5.1 09/14/2017 [facility] ELECTROLYTES Glucose Lvl 131 mg/dL 70 - 99 09/14/2017 [facility] ELECTROLYTES BUN 28 mg/dL 7 - 22 09/14/2017 [facility] HEMATOLOGY Eosinophils # 0.1 K/CMM 0.0 - 0.5 09/14/2017 [facility] HEMATOLOGY Monocytes 10.4 % 2.0 - 12.0 09/14/2017 [facility] HEMATOLOGY Lymphocytes 26.8 % 20.0 - 40.0 09/14/2017 [facility] HEMATOLOGY Segs 61.6 % 45.0 - 75.0 09/14/2017 [facility] Segs-Bands # 3.8 K/CMM 1.5 - 8.1 09/14/2017 [facility] Basophils 0.1 % 0.0 - 1.0 09/14/2017 [facility] Lymphocytes # 1.6 K/CMM 1.0 - 5.5 09/14/2017 [facility] Monocytes # 0.6 K/CMM 0.0 - 0.8 09/14/2017 [facility] Eosinophils 1.1 % 0.0 - 4.0 09/14/2017 [facility] PTT 30.6 s 22.9 - 35.8 09/14/2017 [facility] INR 1.03 0.85 - 1.17 09/14/2017 [facility] PT 13.5 s 12.0 - 14.7 09/14/2017 [facility] MPV 7.5 fL 7.4 - 10.4 09/14/2017 [facility] Platelet 148 K/CMM 133 - 450 09/14/2017 [facility] MCH 32.1 pg 27.0 - 31.0 09/14/2017 [facility] MCHC 34.9 g/dL 32.0 - 36.0 09/14/2017 [facility] RDW 15.4 % 11.5 - 14.5 09/14/2017 [facility] MCV 92.0 fL 80.0 - 94.0 09/14/2017 [facility] Hct 44.5 % 42.0 - 54.0 09/14/2017 [facility] RBC 4.84 M/CMM 4.70 - 6.10 09/14/2017 [facility] Hgb 15.5 g/dL 14.0 - 18.0 09/14/2017 [facility] WBC 6.1 K/CMM 3.7 - 10.4 09/14/2017 [facility] SPECIAL CHEMISTRY Hgb A1C 8.1 % <=5.6 % 09/14/2017 [facility] Chest 2 views DX Chest 2 views DX EXAM: XR CHEST TWO VIEWS HISTORY: 57 years year-old Male with Coughing - preop exam TECHNIQUE: PA and lateral upright views of the chest were obtained. COMPARISON: Chest radiograph 06/24/2016 FINDINGS: The cardiomediastinal silhouette is within normal limits. No focal consolidation or pleural effusion is seen. No definite pneumothorax is seen. No acute osseous abnormality is evident. IMPRESSION: 1. No acute cardiopulmonary abnormality. SL: [id number] 09/14/2017 - - Read by: Satish Werner MD Dictated Date/time: 09/14/17 10:27 Electronically Signed by: Satish Werner MD 09/14/17 10:27 FINAL REPORT [facility] REFERENCE LAB RESULTS Test Name PRA RESULTS 10/27/2016 [facility] REFERENCE LAB RESULTS HLA Misc Test See Report 1 (10/27/16 10:35 AM) 10/27/2016 Result Comment: Reference lab results scanned in Care[facility]. Results displayed in [id number]- Outside Lab Documents (Imaged) under date/time results were scanned. Report sent for scanning on 11/01/2016. [facility] VIRAL - SEROLOGY Influ B Negative (06/24/16 12:46 PM) Negative 06/24/2016 [facility] VIRAL - SEROLOGY Influ A Negative (06/24/16 12:46 PM) Negative 06/24/2016 [facility] Chest 2 views DX Chest 2 views DX Chest 2 views DX 06/24/2016 12:33 PM [employer] Ordering Physician: Michel Najera CLINICAL HISTORY: Coughing; shortness of breath for 3 days TECHNIQUE: PA and lateral upright views of the chest were obtained. COMPARISON: 07/31/2015 FINDINGS: Lungs are clear. No pleural effusion or pneumothorax is present. Cardiomediastinal silhouette is normal. Bones are normal. IMPRESSION: No acute abnormality of the chest. SL: [id number] 06/24/2016 - - Read by: Naun Mckeon MD Dictated Date/time: 06/24/16 13:16 Electronically Signed by: Naun Mckeon MD 06/24/16 13:17 FINAL REPORT [facility] ELECTROLYTES POC Potassium 3.2 meq/L 3.5 - 5.1 01/29/2016 [facility] Retroperitoneal Complete US Retroperitoneal Complete US EXAM: US RETROPERITONEAL COMPLETE DATE: 01/01/2016 9:21 AM CDT INDICATION: ESRD; PRE-TRANSPLANT WORK-UP ADDITIONAL INFORMATION: Hemodialysis via AV fistula COMPARISON: None. TECHNIQUE: Multiplanar grayscale and color Doppler ultrasound of the kidneys and urinary bladder. FINDINGS: Right kidney: Size: 11.3 x 4.5 cm. Hydronephrosis: None. Echogenicity: Increased. Calculi: None. Cysts/Masses: None. Left kidney: Size: 10.4 x 6.3 cm. Hydronephrosis: None. Echogenicity: Increased. Calculi: None. Cysts/Masses: None. Bladder: Normal. IMPRESSION: 1. Atrophic and echogenic kidneys consistent with chronic kidney disease. 2. No masses identified. 01/01/2016 - - This report was dictated by a Director Inbound Sales/Fellow. I have personally reviewed the images as well as the Resident's interpretation and agree with the findings. Read by: Ruben Collier MD Resident: Ruben Collier MD Dictated Date/time: 01/01/16 10:13 Electronically Signed by: Sunny Keene MD 01/01/16 12:09 FINAL REPORT [facility] REFERENCE LAB RESULTS Test Name PRA RESULTS 12/23/2015 [facility] REFERENCE LAB RESULTS HLA Misc Test See Report 1 (12/23/15 4:35 PM) 12/23/2015 Result Comment: Reference lab results scanned in Care[facility]. Results displayed in [id number]- Outside Lab Documents (Imaged) under date/time results were scanned. Report sent for scanning on 01/01/2016. [facility] CHEM PANEL Calcium Lvl 8.2 mg/dL 8.5 - 10.5 08/01/2015 [facility] CHEM PANEL AGAP 13.1 meq/L 10.0 - 20.0 08/01/2015 [facility] CHEM PANEL CO2 28 meq/L 24 - 32 08/01/2015 [facility] CHEM PANEL Sodium Lvl 138 meq/L 135 - 145 08/01/2015 [facility] CHEM PANEL BUN 31 mg/dL 7 - 22 08/01/2015 [facility] CHEM PANEL Chloride Lvl 101 meq/L 95 - 109 08/01/2015 [facility] CHEM PANEL Potassium Lvl 4.1 meq/L 3.5 - 5.1 08/01/2015 [facility] CHEM PANEL Glucose Lvl 151 mg/dL 70 - 99 08/01/2015 [facility] CHEM PANEL Creatinine Lvl 4.79 mg/dL 0.50 - 1.40 08/01/2015 [facility] CHEM PANEL eGFR 13 mL/min/1.73m2 08/01/2015 Result Comment: The eGFR is calculated using the [...] from the National Kidney Disease Education Program (NKDEP) which additionally recommends that when the eGFR is used in patients with extremes of body mass index for purposes of drug dosing, the eGFR should be multiplied by the estimated BMI. [facility] Chest 1view DX Chest 1view DX EXAMINATION: Chest 1view CLINICAL HISTORY: Central Line Placement Since 07/24/2015, pulmonary inflation and image penetration have decreased. A left-sided dual-lumen catheter again overlies the atriocaval junction. Tubing overlying the trachea at the thoracic inlet may represent the proximal end of the central venous catheter outside the patient. Clinical correlation is required. The lungs are increasingly hypoinflated with an elevated right hemidiaphragm and right basilar subsegmental atelectasis. No consolidation, pleural effusion, or pneumothorax. The heart remains mildly enlarged. SL:17 07/31/2015 - - Read by: Jasbir Dimas MD Dictated Date/time: 07/31/15 19:12 Electronically Signed by: Jasbir Dimas MD 07/31/15 19:14 FINAL REPORT [facility] CHEM PANEL Glucose Lvl 132 mg/dL 70 - 99 07/31/2015 [facility] ELECTROLYTES Potassium Lvl 4.4 meq/L 3.5 - 5.1 07/31/2015 [facility] HEMATOLOGY PTT 34.5 s 22.9 - 35.8 07/31/2015 [facility] HEMATOLOGY PT 14.5 s 12.0 - 14.7 07/31/2015 [facility] HEMATOLOGY INR 1.10 0.85 - 1.17 07/31/2015 [facility] IMMUNOLOGY Hep Bs Ag Negative *NA* (07/31/15 10:15 AM) Negative 07/31/2015 [facility] Ext Upper Venous Doppler Unilat US Ext Upper Venous Doppler Unilat US Please refer to the heart lab report, located under vascular in [facility]. 07/29/2015 - - Electronically Signed by: Zachery Nunes 07/31/15 11:02 FINAL REPORT [facility] ELECTROLYTES AGAP 8.8 meq/L 10.0 - 20.0 07/24/2015 [facility] ELECTROLYTES eGFR 15 mL/min/1.73m2 07/24/2015 Result Comment: The eGFR is calculated using the [...] from the National Kidney Disease Education Program (NKDEP) which additionally recommends that when the eGFR is used in patients with extremes of body mass index for purposes of drug dosing, the eGFR should be multiplied by the estimated BMI. [facility] ELECTROLYTES Creatinine Lvl 4.28 mg/dL 0.50 - 1.40 07/24/2015 [facility] ELECTROLYTES Chloride Lvl 101 meq/L 95 - 109 07/24/2015 [facility] ELECTROLYTES CO2 33 meq/L 24 - 32 07/24/2015 [facility] ELECTROLYTES Calcium Lvl 8.6 mg/dL 8.5 - 10.5 07/24/2015 [facility] ELECTROLYTES BUN 29 mg/dL 7 - 22 07/24/2015 [facility] ELECTROLYTES Potassium Lvl 3.8 meq/L 3.5 - 5.1 07/24/2015 [facility] ELECTROLYTES Sodium Lvl 139 meq/L 135 - 145 07/24/2015 [facility] ELECTROLYTES Glucose Lvl 163 mg/dL 70 - 99 07/24/2015 [facility] PTT 36.4 s 22.9 - 35.8 07/24/2015 [facility] WBC 5.9 K/CMM 3.7 - 10.4 07/24/2015 [facility] RBC 3.94 M/CMM 4.70 - 6.10 07/24/2015 [facility] Hct 38.3 % 42.0 - 54.0 07/24/2015 [facility] Hgb 12.7 g/dL 14.0 - 18.0 07/24/2015 [facility] RDW 14.3 % 11.5 - 14.5 07/24/2015 [facility] MCV 97.1 fL 80.0 - 94.0 07/24/2015 [facility] MCH 32.2 pg 27.0 - 31.0 07/24/2015 [facility] MPV 7.6 fL 7.4 - 10.4 07/24/2015 [facility] Platelet 177 K/CMM 133 - 450 07/24/2015 [facility] MCHC 33.2 g/dL 32.0 - 36.0 07/24/2015 [facility] PT 17.2 s 12.0 - 14.7 07/24/2015 [facility] HEMATOLOGY INR 1.37 0.85 - 1.17 07/24/2015 [facility] HEMATOLOGY Basophils 0.3 % 0.0 - 1.0 07/24/2015 [facility] Segs-Bands # 4.2 K/CMM 1.5 - 8.1 07/24/2015 [facility] Eosinophils 1.1 % 0.0 - 4.0 07/24/2015 [facility] Eosinophils # 0.1 K/CMM 0.0 - 0.5 07/24/2015 [facility] Lymphocytes # 1.1 K/CMM 1.0 - 5.5 07/24/2015 [facility] Monocytes # 0.5 K/CMM 0.0 - 0.8 07/24/2015 [facility] Lymphocytes 18.5 % 20.0 - 40.0 07/24/2015 [facility] Monocytes 9.1 % 2.0 - 12.0 07/24/2015 [facility] HEMATOLOGY Segs 71.0 % 45.0 - 75.0 07/24/2015 [facility] Chest 2 views DX Chest 2 views DX PROCEDURE: Chest 2 views CLINICAL INFORMATION Coughing COMPARISON: None. Underinflated lungs. No infiltrates, effusions or pneumothorax. Left central line tip in the right atrium. Enlarged cardiac silhouette. Thoracic spurring. SL: 13 07/24/2015 - - Read by: Abdullahi Salcedo MD Dictated Date/time: 07/24/15 09:18 Electronically Signed by: Abdullahi Salcedo MD 07/24/15 09:20 FINAL REPORT [facility] Vital Signs Vital Sign Value Date Comments Source Systolic (mm Hg) 122 09/21/2017 [facility] Diastolic (mm Hg) 65 09/21/2017 [facility] Respitory Rate 18 09/21/2017 [facility] Heart Rate 68 09/21/2017 [facility] Systolic (mm Hg) 119 09/21/2017 [facility] Diastolic (mm Hg) 67 09/21/2017 [facility] Respitory Rate 16 09/21/2017 [facility] Heart Rate 69 09/21/2017 [facility] Systolic (mm Hg) 104 09/21/2017 [facility] Diastolic (mm Hg) 63 09/21/2017 [facility] Respitory Rate 17 09/21/2017 [facility] Heart Rate 65 09/14/2017 [facility] Temperature Oral (F) 97.6 F 09/14/2017 [facility] Weight 127.727 09/14/2017 [facility] BMI Calculated 36.15 09/14/2017 [facility] Height 187.96 cm 09/14/2017 [facility] Respitory Rate 16 06/24/2016 [facility] Heart Rate 79 06/24/2016 [facility] Temperature Oral (F) 97.9 F 06/24/2016 [facility] Systolic (mm Hg) 132 06/24/2016 [facility] Diastolic (mm Hg) 83 06/24/2016 [facility] Systolic (mm Hg) 120 06/24/2016 [facility] Diastolic (mm Hg) 75 06/24/2016 [facility] Temperature Oral (F) 97.5 F 06/24/2016 [facility] Heart Rate 77 06/24/2016 [facility] Height 187.96 cm 06/24/2016 [facility] Weight 136.364 06/24/2016 [facility] BMI Calculated 38.6 06/24/2016 [facility] Respitory Rate 18 06/24/2016 [facility] BMI Calculated 37.97 02/03/2016 [facility] Weight 134.148 02/03/2016 [facility] Height 187.96 cm 02/03/2016 [facility] Temperature Oral (F) 98.0 F 02/03/2016 [facility] Respitory Rate 18 02/03/2016 [facility] Heart Rate 66 02/03/2016 [facility] Weight 132.273 01/06/2016 [facility] BMI Calculated 37.44 01/06/2016 [facility] Height 187.96 cm 01/06/2016 [facility] Heart Rate 72 01/06/2016 [facility] Systolic (mm Hg) 108 01/06/2016 [facility] Diastolic (mm Hg) 71 01/06/2016 [facility] BMI Calculated 37.8 12/23/2015 [facility] Weight 132.18 12/23/2015 [facility] Height 187 cm 12/23/2015 [facility] Weight 126.36 08/01/2015 [facility] Height 187.9 cm 08/01/2015 [facility] BMI Calculated 35.79 08/01/2015 [facility] Respitory Rate 18 08/01/2015 [facility] Systolic (mm Hg) 161 08/01/2015 [facility] Diastolic (mm Hg) 60 08/01/2015 [facility] Temperature Oral (F) 99.3 F 08/01/2015 [facility] Heart Rate 86 08/01/2015 [facility] Temperature Oral (F) 98.6 F 08/01/2015 [facility] Heart Rate 73 08/01/2015 [facility] Systolic (mm Hg) 148 08/01/2015 [facility] Diastolic (mm Hg) 69 08/01/2015 [facility] Respitory Rate 16 08/01/2015 [facility] Heart Rate 76 08/01/2015 [facility] Respitory Rate 18 08/01/2015 [facility] Systolic (mm Hg) 130 08/01/2015 [facility] Diastolic (mm Hg) 68 08/01/2015 [facility] Temperature Oral (F) 98.1 F 08/01/2015 [facility] Height 187.96 cm 07/24/2015 [facility] BMI Calculated 35.77 07/24/2015 [facility] Weight 126.364 07/24/2015 [facility] Temperature Oral (F) 98.2 F 03/28/2015 [facility] Heart Rate 64 03/28/2015 [facility] Systolic (mm Hg) 131 03/28/2015 [facility] Diastolic (mm Hg) 68 03/28/2015 [facility] Respitory Rate 17 03/28/2015 [facility] Weight 121 03/28/2015 [facility] Temperature Oral (F) 98.3 F 03/28/2015 [facility] Heart Rate 66 03/28/2015 [facility] Respitory Rate 18 03/28/2015 [facility] Systolic (mm Hg) 134 03/28/2015 [facility] Diastolic (mm Hg) 70 03/28/2015 [facility] Encounters Location Location Details Encounter Type Encounter Number Reason For Visit Attending Provider ADM Date DC Date Status Source Outpatient [id number] [facility] 01/13/2015 [facility] Outpatient [id number] [facility] 02/23/2015 [facility] Outpatient [id number] URODYNAMICS VISIT 03/26/2015 [facility] [id number] Rene Salguero 03/27/2015 03/28/2015 [facility] Outpatient [id number] [facility] 06/15/[address] [facility] [place] Outpatient [id number] [facility] 06/15/2015 [facility] [id number] URODYNAMICS VISIT 07/16/2015 [facility] Outpatient [id number] Ezequiel Shafer 07/29/2015 07/30/2015 [facility] OBS Observation Patient [id number] Ezequiel Shafer 08/01/2015 08/01/2015 [facility] Outpatient [id number] [facility] 08/04/[address] [facility] [place] Outpatient [id number] [facility] 08/19/2015 [facility] [id number] [facility] 11/16/2015 Active [facility] OP Transplant Clinic - Pre [id number] Camryn Physician 12/23/2015 01/22/2016 [facility] Outpatient [id number] Kelsey Ibrahim 01/06/2016 01/07/2016 [facility] Outpatient [id number] Kelsey Ibrahim 01/29/2016 01/29/2016 [facility] Outpatient [id number] Joanne Curtis 02/03/2016 02/04/2016 [facility] Phone Message [id number] 02/05/2016 02/07/[facility] Emergency [id number] Jamee Mosquera 06/24/2016 06/24/2016 [facility] Outpatient [id number] [facility] 10/04/2016 Active [facility] OP Transplant Clinic - Pre [id number] Lore Coreas 10/27/2016 11/26/2016 [facility] Outpatient [id number] [facility] 11[facility]01/2016 [facility] [id number] [facility] 11/28/[address] [facility] [place] Outpatient [id number] [facility] 12/07/2016 Active [facility] [id number] Ezequiel Shafer 09/21/2017 09/21/2017 [facility] Departed Emergency Room [id number] DON SAENZ MD 10/30/2017 10/30/2017 [facility] Outpatient [id number] [facility] 06/04/2018 Active [facility] Procedures Procedure Code Date Perfomer Comments Source TUIP - Transurethral incision of prostate [id number] 07/31/2015 [facility] TUIP - Transurethral incision of prostate [id number] 07/31/2015 [facility] TUIP - Transurethral incision of prostate [id number] 07/31/2015 [facility] HD - Hemodialysis [id number] 11/13/2014 [facility] HD - Hemodialysis [id number] 11/13/2014 [facility] HD - Hemodialysis [id number] 11/13/2014 [facility] Arteriovenous fistula operation [id number] [facility] Cystoscopy [id number] [facility] Dialysis procedure [id number] [facility] Insertion of tunneled dialysis catheter using fluoroscopic guidance [id number] [facility] Arteriovenous fistula operation [id number] [facility] [id number] [facility]yst[facility] [id number] [facility] Insertion of tunneled dialysis catheter using fluoroscopic guidance [id number] [facility] Arteriovenous fistula operation [id number] [facility] Cystoscopy [id number] [facility] Dialysis procedure [id number] [facility] Insertion of tunneled dialysis catheter using fluoroscopic guidance [id number] [facility]
--- OUTSIDE RECORDS SUMMARY | 2018-05-25 20:35 | XMS REPORT | Summary of Care ---
Author Author [facility] Organization [facility] Address Unknown Phone Unavailable Encounter DAISY Blackburn(TARSHA) [id number] Date(s): 02/05/16 - 02/06/16 [facility] [address] [place] [address]- Vital Signs No data available for this section Problem List Condition Effective Dates Status Health Status Informant BPH(Confirmed) Active Diabetes mellitus Active type 2(Confirmed) DM (diabetes Active mellitus)(Confirmed) Enlarged Active prostate(Confirmed) ESRD (end stage Active renal disease)(Confirmed) ESRD on Active dialysis(Confirmed) Hypertensive Active nephrosclerosis(Conf irmed) Obesity(Confirmed) Active Obstructive Active uropathy(Confirmed) Polyp of Active prostate(Confirmed) Allergies, Adverse Reactions, Alerts Substance Reaction Severity Status NKDA Active Medications atorvastatin 20 mg oral tablet 20 mg=1 tab, PO, Bedtime, # 30 tab, 3 Refill(s), Pharmacy: [facility]/pharmacy #[id number] Start Date: 02/05/16 Status: Ordered Results No data available for this section Immunizations Given and Recorded Vaccine Date Status Refusal Reason pneumococcal 23-valent vaccine 11/09/14 Given Procedures Procedure Date Related Diagnosis Body Site TUIP - Transurethral incision of prostate 07/31/15 HD - Hemodialysis 11/13/14 Arteriovenous fistula operation Cystoscopy Dialysis procedure Insertion of tunneled dialysis catheter using fluoroscopic guidance Social History Social History Type Response Substance [...]
--- OUTSIDE RECORDS SUMMARY | 2018-05-25 20:35 | XMS REPORT | Summary of Care ---
Author Author [facility] Organization [facility] Address Unknown Phone Unavailable Encounter DAISY Blackburn(TARSHA) [id number] Date(s): 12/23/15 - 01/21/16 [place] [address]- [phone] Discharge Disposition: Home or Self Care Attending Physician: Lore Coreas MD Referring Physician: Physician, Non Associated MD Vital Signs Most recent to 1 oldest [Reference Range]: Height 187 cm (12/23/15 8:58 AM) Weight 132.18 kg (12/23/15 8:58 AM) Body Mass Index 37.8 m2 (12/23/15 8:58 AM) Problem List Condition Effective Dates Status Health Status Informant BPH(Confirmed) Active Diabetes mellitus Active type 2(Confirmed) DM (diabetes Active mellitus)(Confirmed) Enlarged Active prostate(Confirmed) ESRD (end stage Active renal disease)(Confirmed) ESRD on Active dialysis(Confirmed) Hypertensive Active nephrosclerosis(Conf irmed) Obesity(Confirmed) Active Obstructive Active uropathy(Confirmed) Polyp of Active prostate(Confirmed) Allergies, Adverse Reactions, Alerts Substance Reaction Severity Status NKDA Active Medications gabapentin 400 mg oral capsule 400 mg=1 cap, PO, TID, # 90 cap, 1 Refill(s) Start Date: 12/23/15 Status: Ordered glyBURIDE 2.5 mg oral tablet 2.5 mg=1 tab, PO, Breakfast, # 30 tab, 0 Refill(s) Start Date: 12/23/15 Status: Ordered Melatonin 10 mg oral capsule 20 mg=2 cap, PO, Bedtime, 0 Refill(s) Start Date: 12/23/15 Status: Ordered sertraline 100 mg oral tablet 100 mg=1 tab, PO, Daily, # 30 tab, 0 Refill(s) Start Date: 12/23/15 Status: Ordered tramadol 50 mg oral tablet 50 mg=1 tab, PO, Q6H, PRN Pain, # 40 tab, 0 Refill(s) Start Date: 12/23/15 Stop Date: 01/02/16 Status: Ordered Results REFERENCE LAB RESULTS Most recent to 1 oldest [Reference Range]: HLA Misc Test See Report 1 (12/23/15 4:35 PM) Test Name PRA RESULTS *Unknown* (12/23/15 4:35 PM) 1Result Comment: Reference lab results scanned in Care4. Results displayed in [id number]-Outside Lab Documents (Imaged) under date/time results were scanned. Report sent for scanning on 01/01/2016. Immunizations Given and Recorded Vaccine Date Status [...] Yes. Alcohol Never Smoking Status Never smoker; Exposure to Tobacco Smoke None; Cigarette Smoking Last 365 Days No; Reg Smoking Cessation Counseling No Assessment and Plan No data available for this section
--- OUTSIDE RECORDS SUMMARY | 2018-05-25 20:35 | XMS REPORT | Summary of Care ---
Author Author [facility] Organization [facility] Address Unknown Phone Unavailable Encounter DAISY Blackburn(TARSHA) [id number] Date(s): 01/06/16 - 01/06/16 [facility] [address] [place] [phone] Discharge Disposition: Home Attending Physician: Kelsey Ibrahim MD Referring Physician: Kelsey Ibrahim MD Vital Signs Most recent to 1 oldest [Reference Range]: Height 187.96 cm (01/06/16 10:44 AM) Blood Pressure 108/71 mmHg [90-140/60-90 mmHg] (01/06/16 10:44 AM) Peripheral Pulse 72 bpm Rate [60-100 bpm] (01/06/16 10:44 AM) Weight 132.273 kg (01/06/16 10:44 AM) Body Mass Index 37.44 m2 (01/06/16 10:44 AM) Problem List Condition Effective Dates Status Health Status Informant BPH(Confirmed) Active Diabetes mellitus Active type 2(Confirmed) DM (diabetes Active mellitus)(Confirmed) Enlarged Active prostate(Confirmed) ESRD (end stage Active renal disease)(Confirmed) ESRD on Active dialysis(Confirmed) Hypertensive Active nephrosclerosis(Conf irmed) Obesity(Confirmed) Active Obstructive Active uropathy(Confirmed) Polyp of Active prostate(Confirmed) Allergies, Adverse Reactions, Alerts Substance Reaction Severity Status NKDA Active Medications GoLYTELY oral powder for reconstitution 240 mL, PO, Q10Min, # 1 ea, 0 Refill(s), Pharmacy: [id number] Start Date: 01/06/16 Stop Date: 01/07/16 Status: Ordered Results No data available for [...]
--- OUTSIDE RECORDS SUMMARY | 2018-05-25 20:35 | XMS REPORT ---
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 Allergies, Adverse Reactions, Alerts This patient has no known allergies or adverse reactions. Medications This patient has no known medications. Results Test Description Test Time Test Comments Text Results Atomic Results Result Comments PELVIS AP 1-2 VIEWS [place] [address] Patient Name: YOHANA CALDWELL MR #: [id number] : 1960 Age/Sex: 57/M Req #: [id number] Adm Physician: Ordered by: RUBINA WILLSON [employer] Report #: [id number] Location: ER Room/Bed: Procedure: [id number] DX/PELVIS AP 1-2 VIEWS Exam Date: 10/30/17 Exam Time: 1457 REPORT STATUS: Signed PROCEDURE: X-RAY PELVIS, AP VIEW COMPARISON: None. INDICATIONS: FALL FINDINGS: There are no displaced fractures, dislocations, lytic or blastic lesions. The bones are well-mineralized. The soft-tissues are unremarkable. CONCLUSION: No evidence of acute displaced pelvic fracture or dislocation. Dictated by: Elton Carolina M.D. on 10/30/2017 at 15:26 Electronically approved by: Elton Carolina M.D. on 10/30/2017 at 15:26 Dictated By: ELTON CAROLINA MD 152 Transcribed By: KELLE on 10/30/171525 COPY TO: RUBINA WILLSON [employer] SP LUMBAR, COMPLETE MIN 4VW [place] [address] Patient Name: YOHANA CALDWELL MR #: [id number] : 1960 Age/Sex: 57/M Req #: [id number] Adm Physician: Ordered by: RUBINA WILLSON NP Report #: [id number] Location: ER Room/Bed: Procedure: [id number] DX/SP LUMBAR, COMPLETE MIN 4VW Exam Date: 10/30/17 Exam Time: 1457 REPORT STATUS: Signed PROCEDURE: L-SPINE COMPLETE COMPARISON: None. INDICATIONS: FALL FINDINGS: There are 5 lumbar-type vertebral bodies. The vertebral bodies are well-aligned without evidence of spondylolisthesis. Vertebral body heights are maintained. Mild degenerative changes, marked by mild disc space narrowing and osteophytosis. L4-L5 and L5- S1 facet arthropathy. There are no fractures, lytic or blastic lesions. The sacroiliac joints are unremarkable. CONCLUSION: No evidence of acute displaced fracture of the lumbar spine. Degenerative changes. Dictated by: Elton Carolina M.D. on 10/30/2017 at 15:29 Electronically approved by: Elton Carolina M.D. on 10/30/2017 at 15:29 Dictated By: ELTON CAROLINA MD 28 COPY TO: RUBINA WILLSON [employer]
--- OUTSIDE RECORDS SUMMARY | 2018-05-25 20:35 | XMS REPORT | Summary of Care ---
Author Author [facility] Organization [facility] Address Unknown Phone Unavailable Encounter DAISY Blackburn(TARSHA) [id number] Date(s): 01/29/16 - 01/29/16 [facility] [address] [place] [address] Discharge Disposition: Home or Self Care Attending Physician: Kelsey Ibrahim MD Referring Physician: Kelsey Ibrahim MD Vital Signs No data available for [...] No data available for this section Results ELECTROLYTES Most recent to 1 oldest [Reference Range]: POC Potassium 3.2 mEq/L [3.5-5.1 mEq/L] *LOW* (01/29/16 7:47 AM) Immunizations Given and Recorded Vaccine Date Status [...]
--- OUTSIDE RECORDS SUMMARY | 2018-05-25 20:35 | XMS REPORT | Summary of Care ---
Author Author [facility] Organization [facility] Address Unknown Phone Unavailable Encounter DAISY Blackburn(TARSHA) [id number] Date(s): 02/03/16 - 02/03/16 [facility] [address], [address] [place], [place] [address] Discharge Disposition: Home or Self Care Attending Physician: Joanne Curtis MD Vital Signs Most recent to 1 oldest [Reference Range]: Height 187.96 cm (02/03/16 3:40 PM) Temperature Oral 98.0 DegF [96.4-99.1 DegF] (02/03/16 3:40 PM) Respiratory Rate 18 BRMIN [14-20 BRMIN] (02/03/16 3:40 PM) Peripheral Pulse 66 bpm Rate [60-100 bpm] (02/03/16 3:40 PM) Weight 134.148 kg (02/03/16 3:40 PM) Body Mass Index 37.97 m2 (02/03/16 3:40 PM) Problem List Condition Effective Dates Status Health Status Informant BPH(Confirmed) Active Diabetes mellitus Active type 2(Confirmed) DM (diabetes Active mellitus)(Confirmed) Enlarged Active prostate(Confirmed) ESRD (end stage Active renal disease)(Confirmed) ESRD on Active dialysis(Confirmed) Hypertensive Active nephrosclerosis(Conf irmed) Obesity(Confirmed) Active Obstructive Active uropathy(Confirmed) Polyp of Active prostate(Confirmed) Allergies, Adverse Reactions, Alerts Substance Reaction Severity Status NKDA Active Medications No Known Medications Results No data available for this section [...]
--- OUTSIDE RECORDS SUMMARY | 2018-05-25 20:35 | XMS REPORT | Summary of Care ---
Author Author [facility] Organization [facility] Address Unknown Phone Unavailable Encounter DAISY Blackburn(TARSHA) [id number] Date(s): 10/27/16 - 11/25/16 [facility] [address] [place] [address] [phone] Discharge Disposition: Home or Self Care Attending Physician: Lore Coreas MD Referring Physician: Lore Coreas MD Vital Signs No data available for [...] No data available for this section Results REFERENCE LAB RESULTS Most recent to 1 oldest [Reference Range]: HLA Misc Test See Report 1 (10/27/16 10:35 AM) Test Name PRA RESULTS *Unknown* (10/27/16 10:35 AM) 1Result Comment: Reference lab results scanned in Care4. Results displayed in [id number]-Outside Lab Documents (Imaged) under date/time results were scanned. Report sent for scanning on 11/01/2016. Immunizations Given and Recorded Vaccine Date Status [...]
--- OUTSIDE RECORDS SUMMARY | 2018-05-25 20:35 | XMS REPORT | Summary of Care ---
Author Author [facility] Organization [facility] Address Unknown Phone Unavailable Encounter DAISY Blackburn(TARSHA) [id number] Date(s): 06/24/16 - 06/24/16 [facility] [address] [place] [address]- [phone] Discharge Diagnosis: Cough Discharge Diagnosis: Acute upper respiratory infection, unspecified Discharge Disposition: Home or Self Care Attending Physician: Jamee Mosquera DO Vital Signs Most recent to 1 2 oldest [Reference Range]: Height 187.96 cm (06/24/16 11:53 AM) Temperature Oral 97.9 DegF 97.5 DegF [96.4-99.1 DegF] (06/24/16 1:50 PM) (06/24/16 11:53 AM) Blood Pressure 132/83 mmHg 120/75 mmHg [90-140/60-90 mmHg] (06/24/16 1:50 PM) (06/24/16 11:53 AM) Respiratory Rate 16 BRMIN 18 BRMIN [14-20 BRMIN] (06/24/16 1:50 PM) (06/24/16 11:53 AM) Peripheral Pulse 79 bpm 77 bpm Rate [60-100 bpm] (06/24/16 1:50 PM) (06/24/16 11:53 AM) Weight 136.364 kg (06/24/16 11:53 AM) Body Mass Index 38.6 m2 (06/24/16 11:53 AM) Problem List Condition Effective Dates Status [...] No data available for this section Results VIRAL - SEROLOGY Most recent to 1 oldest [Reference Range]: Influ A [Negative] Negative (06/24/16 12:46 PM) Influ B [Negative] Negative (06/24/16 12:46 PM) Immunizations Given and Recorded Vaccine Date Status [...]
--- OUTSIDE RECORDS SUMMARY | 2018-05-25 20:35 | XMS REPORT | Summary of Care ---
Author Author [facility] Organization [facility] Address Unknown Phone Unavailable Encounter HQ Alexey(TARSHA) [id number] Date(s): 09/21/17 - 09/21/17 [facility] [address] [place] [address]- Encounter Diagnosis Other specified complication of vascular prosthetic devices, implants and grafts , initial encounter (Final) - 10/04/17 Compression of vein (Final) - Hypertensive chronic kidney disease with stage 5 chronic kidney disease or end s tage renal disease (Final) - End stage renal disease (Final) - Dependence on renal dialysis (Final) - Atherosclerotic heart disease of [place] coronary artery without angina pectoris (Final) - Discharge Disposition: Home or Self Care Attending Physician: Ezequiel Shafer MD Referring Physician: Ezequiel Shafer MD Vital Signs 1 2 3 Most recent to oldest [Reference Range]: 187.96 cm (09/14/17 10:01 AM) Height 97.6 DegF (09/14/17 10:02 AM) Temperature Oral [96.4-99.1 DegF] 122/65 mmHg (09/21/17 12:30 PM) 119/67 mmHg (09/21/17 12:00 PM) 104/63 mmHg (09/21/17 11:45 AM) Blood Pressure [90-140/60-90 mmHg] 18 BRMIN (09/21/17 12:30 PM) 16 BRMIN (09/21/17 12:00 PM) 17 BRMIN (09/21/17 11:45 AM) Respiratory Rate [14-20 BRMIN] 68 bpm (09/21/17 12:30 PM) 69 bpm (09/21/17 12:00 PM) 65 bpm (09/14/17 10:02 AM) Peripheral Pulse Rate [60-100 bpm] 127.727 kg (09/14/17 10:01 AM) Weight 36.15 m2 (09/14/17 10:01 AM) Body Mass Index Problem List Condition Effective Dates Status Health Status Informant BPH(Confirmed) Active Diabetes mellitus Active type 2(Confirmed) DM (diabetes Active mellitus)(Confirmed) Enlarged Active prostate(Confirmed) ESRD (end stage Active renal disease)(Confirmed) ESRD on Active dialysis(Confirmed) Hypertensive Active nephrosclerosis(Conf irmed) Obesity(Confirmed) Active Obstructive Active uropathy(Confirmed) Polyp of Active prostate(Confirmed) Allergies, Adverse Reactions, Alerts Substance Reaction Severity Status NKDA Active Medications albuterol-ipratropium 2.5-0.5 mg inhalation solution 3 mL, Route: NEB, Dosing Weight 127.727, kg, ONCE, STAT, Start date: 09/21/17 6: 35:00 CDT, Stop date: 09/21/17 6:35:00 CDT Start Date: 09/21/17 Stop Date: 09/21/17 Status: Discontinued Ancef + sterile water 20 mL 2 gm, Route: IV, Drug form: PDR/INJ, PRE OP, Dosing Weight 139.455, kg, Start da te: 09/14/17 11:00:00 CDT, Duration: 1 day, Stop date: 09/15/17 10:59:00 CDT, AB X Indication: Surgical Prophylaxis Notes: (Same As: AncefBenl) MEDICATION WASTE Product Size: 1000 mgP roduct Wasted: ___ mg Start Date: 09/14/17 Stop Date: 09/21/17 Status: Discontinued aspirin 81 mg tablet, enteric coated 81 mg=1 tab, PO, Daily, # 90 tab, 3 Refill(s) Start Date: 09/14/17 Status: Ordered buPROPion 150 mg/12 hours (SR) oral tablet, extended release 150 mg=1 tab, PO, BID, 0 Refill(s) Start Date: 09/14/17 Status: Ordered ceFAZolin (ANES) Route: IV, Drug form: INJ, ONCE, Stop date: 09/21/17 11:36:00 CDT Start Date: 09/21/17 Stop Date: 09/21/17 Status: Completed ePHEDrine (ANES) Route: IV, Drug form: INJ, ONCE, Stop date: 09/21/17 11:36:00 CDT Start Date: 09/21/17 Stop Date: 09/21/17 Status: Completed fentaNYL (ANES) Route: IV, Drug form: INJ, ONCE, Stop date: 09/21/17 11:36:00 CDT Start Date: 09/21/17 Stop Date: 09/21/17 Status: Completed Lantus 100 units/mL 65 unit, SUB-Q, Bedtime, # 10 mL, 3 Refill(s) Start Date: 09/14/17 Status: Ordered lidocaine (ANES) Route: IV, Drug form: INJ, ONCE, Stop date: 09/21/17 11:36:00 CDT Start Date: 09/21/17 Stop Date: 09/21/17 Status: Completed metoclopramide (ANES) Route: IV, Drug form: INJ, ONCE, Stop date: 09/21/17 11:36:00 CDT Start Date: 09/21/17 Stop Date: 09/21/17 Status: Completed midazolam (ANES) Route: IV, Drug form: SOLN, ONCE, Stop date: 09/21/17 11:36:00 CDT Start Date: 09/21/17 Stop Date: 09/21/17 Status: Completed ondansetron (ANES) Route: IV, Drug form: INJ, ONCE, Stop date: 09/21/17 11:41:00 CDT Start Date: 09/21/17 Stop Date: 09/21/17 Status: Completed pantoprazole 40 mg oral enteric coated tablet 40 mg=1 tab, PO, Daily, 0 Refill(s) Start Date: 09/14/17 Status: Ordered phenylephrine (ANES) Route: IV, Drug form: INJ, ONCE, Stop date: 09/21/17 11:36:00 CDT Start Date: 09/21/17 Stop Date: 09/21/17 Status: Completed propofol (ANES) Route: IV, Drug form: INJ, ONCE, Stop date: 09/21/17 11:36:00 CDT Start Date: 09/21/17 Stop Date: 09/21/17 Status: Completed Sodium Chloride 0.9% IV (ANES) 500 mL Route: IV, Total Volume: 500, Start date: 09/21/17 10:12:00 CDT, Stop date: 08/25 03/13 11:12:00 CDT Start Date: 09/21/17 Stop Date: 09/21/17 Status: Completed Sodium Chloride 0.9% IV 500 mL 500 mL, Rate: 25 ml/hr, Infuse over: 20 hr, Route: IV, Dosing Weight 127.727 kg, Total Volume: 500, Start date: 09/21/17 6:35:00 CDT, Duration: 30 day, Stop jeanna e: 10/21/17 6:34:00 CDT, 2.6, m2 Start Date: 09/21/17 Stop Date: 09/21/17 Status: Discontinued vancomycin (ANES) 1000 mg Route: IV, Drug form: INJ, Start date: 09/21/17 10:30:00 CDT, Stop date: 8 11:30:00 CDT Start Date: 09/21/17 Stop Date: 09/21/17 Status: Completed vancomycin + Sodium Chloride 0.9% IV 250 mL 1 gm, Route: IVPB, PRE OP, Dosing Weight 139.455, kg, Start date: 09/14/17 11:00 :00 CDT, Duration: 1 day, Stop date: 09/15/17 10:59:00 CDT, ABX Indication: Surg ical Prophylaxis Notes: TIME CRITICAL MEDICATION(Same As: Vancocin)Infusion rate< 1000 mg: infuse over 1 [id number] - 1500 mg: infuse over 1.5 [id number] - 2000 mg: infuse over 2 hours> 2001 mg: infuse over 2.5 hoursFor adult patients only: Round to nearest 250 mg per Medical Staff approval MEDICATION WASTE Product Size: 1000 mgProduct Wasted: ___ mg Start Date: 09/14/17 Stop Date: 09/21/17 Status: Discontinued Results BLOOD BANK RESULTS Most recent to 1 2 oldest [Reference Range]: ABO/Rh O POS *Unknown* (09/14/17 10:14 AM) Antibody Scrn Negative (09/14/17 10:14 AM) ELECTROLYTES Most recent to 1 2 oldest [Reference Range]: Sodium Lvl [135-145 136 mEq/L mEq/L] (09/14/17 10:14 AM) Potassium Lvl 3.4 mEq/L 3.6 mEq/L [3.5-5.1 mEq/L] *LOW* (09/14/17 10:14 AM) (09/21/17 6:17 AM) Chloride Lvl [95-109 97 mEq/L mEq/L] (09/14/17 10:14 AM) CO2 [24-32 mEq/L] 34 mEq/L *HI* (09/14/17 10:14 AM) AGAP [10.0-20.0 8.6 mEq/L mEq/L] *LOW* (09/14/17 10:14 AM) CHEM PANEL Most recent to 1 2 oldest [Reference Range]: Creatinine Lvl 3.35 mg/dL [0.50-1.40 mg/dL] *HI* (09/14/17 10:14 AM) eGFR 19 mL/min/1.73m2 1 *NA* (09/14/17 10:14 AM) BUN [7-22 mg/dL] 28 mg/dL *HI* (09/14/17 10:14 AM) Glucose Lvl [70-99 131 mg/dL mg/dL] *HI* (09/14/17 10:14 AM) Calcium Lvl 8.6 mg/dL [8.5-10.5 mg/dL] (09/14/17 10:14 AM) 1Result Comment: The eGFR is calculated using [...] be mul tiplied by the estimated BMI. SPECIAL CHEMISTRY Most recent to 1 2 oldest [Reference Range]: Hgb A1C [<=5.6 %] 8.1 % *HI* (09/14/17 10:14 AM) HEMATOLOGY Most recent to 1 2 oldest [Reference Range]: WBC [3.7-10.4 K/CMM] 6.1 K/CMM (09/14/17 10:14 AM) RBC [4.70-6.10 4.84 M/CMM M/CMM] (09/14/17 10:14 AM) Hgb [14.0-18.0 g/dL] 15.5 g/dL (09/14/17 10:14 AM) Hct [42.0-54.0 %] 44.5 % (09/14/17 10:14 AM) MCV [80.0-94.0 fL] 92.0 fL (09/14/17 10:14 AM) MCH [27.0-31.0 pg] 32.1 pg *HI* (09/14/17 10:14 AM) MCHC [32.0-36.0 34.9 g/dL g/dL] (09/14/17 10:14 AM) RDW [11.5-14.5 %] 15.4 % *HI* (09/14/17 10:14 AM) MPV [7.4-10.4 fL] 7.5 fL (09/14/17 10:14 AM) Platelet [133-450 148 K/CMM K/CMM] (09/14/17 10:14 AM) Segs [45.0-75.0 %] 61.6 % (09/14/17 10:14 AM) Lymphocytes 26.8 % [20.0-40.0 %] (09/14/17 10:14 AM) Monocytes [2.0-12.0 10.4 % %] (09/14/17 10:14 AM) Eosinophils [0.0-4.0 1.1 % %] (09/14/17 10:14 AM) Basophils [0.0-1.0 0.1 % %] (09/14/17 10:14 AM) Segs-Bands # 3.8 K/CMM [1.5-8.1 K/CMM] (09/14/17 10:14 AM) Lymphocytes # 1.6 K/CMM [1.0-5.5 K/CMM] (09/14/17 10:14 AM) Monocytes # [0.0-0.8 0.6 K/CMM K/CMM] (09/14/17 10:14 AM) Eosinophils # 0.1 K/CMM [0.0-0.5 K/CMM] (09/14/17 10:14 AM) PT [12.0-14.7 13.5 seconds seconds] (09/14/17 10:14 AM) INR [0.85-1.17] 1.03 (09/14/17 10:14 AM) PTT [22.9-35.8 30.6 seconds seconds] (09/14/17 10:14 AM) Immunizations Given and Recorded Vaccine Date Status Refusal Reason pneumococcal 23-valent vaccine 11/09/14 Given Procedures Procedure Date Related Diagnosis Body Site Status TUIP - Transurethral incision of prostate 07/31/15 Completed HD - Hemodialysis 11/13/14 Completed Arteriovenous fistula operation Completed Cystoscopy Completed Dialysis procedure Completed Insertion of tunneled dialysis catheter using Completed fluoroscopic guidance Social History Social History Type Response Substance Abuse Use: Current. Type: Marijuana. Recreational Drug Route: Inhaled. IV drug use: No. Drug use interferes with work/home: No. Ready to change: No. Household substance abuse concerns: No. Cessation Education Provided: Yes. Alcohol Never Smoking Status Never smoker; Lives with someone who smokes; Cigarette Smoking Last 365 Days No; Reg Smoking Cessation Counseling No entered on: 09/14/17 Assessment and Plan No data available for this section
[2018-05-25 21:17] LABS: BASOPHILS % 0.1 % (0.0-1.0); EOSINOPHILS # (AUTO) 0.1 (0.0-0.4); EOSINOPHILS % 0.9 % (0.0-6.0); HEMATOCRIT 47.5 % (38.2-49.6); HEMOGLOBIN 16.3 g/dL (14.0-18.0); LYMPHOCYTES # (AUTO) 0.9 (1.0-3.2); LYMPHOCYTES % 9.7 % (18.0-39.1); MEAN CORPUSCULAR HEMOGLOBIN 29.9 pg (28-32); MEAN CORPUSCULAR HGB CONC 34.3 g/dL (31-35); MONOCYTES # (AUTO) 0.6 (0.2-0.8); MONOCYTES % 6.4 % (4.4-11.3); NEUTROPHILS # (AUTO) 7.2 (2.1-6.9); NEUTROPHILS % 82.4 % (38.7-80.0); PLATELET COUNT 160 x10e3/uL (140-360); RED BLOOD COUNT 5.46 x10e6/uL (4.3-5.7); RED CELL DISTRIBUTION WIDTH 14.6 % (11.7-14.4)
[2018-05-25 21:34] LABS: ALBUMIN 4.2 g/dL (3.5-5.0); ALBUMIN/GLOBULIN RATIO 1.1 (0.8-2.0); ANION GAP 13.5 mmol/L (8-16); CALCIUM 9.9 mg/dL (8.4-10.2); CREATININE, SERUM 3.01 mg/dL (0.72-1.25); MAGNESIUM 2.1 MG/DL (1.3-2.1); POTASSIUM 3.5 mmol/L (3.5-5.1)
[2018-05-25 21:40] LABS: CREATINE KINASE MB 0.7 ng/mL (0-5.0)
--- NOTE | 2018-05-25 22:07 | Diagnostic Imaging Report ---
History:Syncope Comparison studies:None Technique: Axial images were obtained from the skull base to the vertex. Coronal and sagittal images reconstructed from the axial data. Intravenous contrast: None Dose modulation, iterative reconstruction, and/or weight based adjustment of the mA/kV was utilized to reduce the radiation dose to as low as reasonably achievable. Findings: Scalp/skull: No abnormalities. Extra-axial spaces: No masses. No fluid collections. Brain sulci: Mildly prominent. Ventricles: Mild compensatory dilatation. No hydrocephalus. Parenchyma: No abnormal densities. No masses, hemorrhage, acute or chronic cortical vascular insults. Sellar/suprasellar region: No abnormalities. Craniocervical junction: Patent foramen magnum. No Chiari one malformation. Incidental findings: Atherosclerotic calcifications in the carotid siphons and vertebral arteries . Impression: No acute abnormalities. Chronic findings: 1. Mild generalized volume loss. Signed by: DR Shreyas Reza M.D. on 05/25/2018 10:03 PM
--- NOTE | 2018-05-25 22:36 | Diagnostic Imaging Report ---
EXAM: CHEST SINGLE (PORTABLE), AP 1 view INDICATION: Syncope during dialysis this afternoon. COMPARISON: None FINDINGS: LINES/TUBES: None LUNGS: No consolidations or edema. PLEURA: No effusions or pneumothorax. HEART AND MEDIASTINUM: Normal size and contour. BONES AND SOFT TISSUES: No acute findings. Chronic deformity of the right distal clavicle. IMPRESSION: No acute thoracic abnormality. Signed by: Dr. Joanna Hawk M.D. on 05/25/2018 10:32 PM
== END 2018-05-25 23:41 | disposition home or self-care (01) ==
LOC: ER 20:31
DX: R55 Syncope and collapse (principal); E86.1 Hypovolemia; I12.0 Hypertensive chronic kidney disease with stage 5 chronic kidney disease or end stage renal disease; E11.22 Type 2 diabetes mellitus with diabetic chronic kidney disease; N18.6 End stage renal disease; Z99.2 Dependence on renal dialysis; Z86.718 Personal history of other venous thrombosis and embolism
CPT/HCPCS: 36415; 70450; 71045; 80053; 82550; 82553; 83735; 84484; 85025; 93005; 99284

== ENCOUNTER 2018-10-27 01:00 | Emergency (ER) | payer MEDICARE, OTHER ==
[~2018-10-27] VITALS: Ht 188 cm; Wt 124.7 kg
--- OUTSIDE RECORDS SUMMARY | 2018-10-27 01:02 | XMS REPORT | Clinical Summary ---
Author Author [facility] Address Unknown Phone Unavailable Care Team Providers Care Statistics Intern Name Role Phone PCP Unavailable Allergies No Known Allergies Medications Not on file Active Problems Not on file Encounters Care Team Description Date Type Specialty Nina Magallanes 12/07/2017 Abstract Transplant Nina Magallanes Kidney Transplant Pre-evaluation 12/07/2017 Telephone Transplant after 10/26/2017 Social History Date Tobacco Use Types Packs/Day Years Used Never Assessed Sex Assigned at Date Recorded Not on file Industry Job Start Date Occupation Not on file Not on file Not on file Travel End Travel History Travel Start No recent travel history available. Last Filed Vital Signs Not on file Plan of Treatment Not on file Results Not on fileafter 10/26/2017 Insurance Payer Benefit Subscriber ID Type Phone Address Plan / Group MEDICARE MEDICARE A xxxxxxxxxx Medicare B MEDICAID MEDICAID xxxxxxxxx Medicaid OF [place]
--- OUTSIDE RECORDS SUMMARY | 2018-10-27 01:02 | XMS REPORT | Clinical Summary ---
Author Author [facility] Address Unknown Phone Unavailable Care Team Providers Care Floor Coverings Installer Name Role Phone Kd Epps MD PCP [...] Encounters Care Team Description Date Type Specialty Endy Oconnor RN 06/29/2018 Orders Only Transplant Vilma Christie RN 05/21/2018 Abstract Transplant Lucas Laura Cancel evaluation 05/21/2018 Telephone Transplant Vilma Christie RN Results 05/03/2018 Documentation Transplant Vilma Christie RN PSA elevation (Primary Dx); ESRD (end stage renal disease) (HCC) 05/03/2018 Orders Only Transplant Jase Jules MD [...] Jase Jules MD 03/22/2018 Hospital Transplant Encounter Laura Zavala Pre-kidney full eval day 1 03/22/2018 Telephone Transplant Simona Olson 02/27/2018 Documentation Transplant Malathi Washington MA Referral - Kidney Txp (New MD Consult) 02/19/2018 Telephone Transplant after 10/26/2017 Social History Date [...] Done Comments DIABETIC RETINAL EYE EXAM 1961 DIABETIC FOOT EXAM 1971 URINE MICROALBUMIN 1971 COLON CANCER SCREENING 2011 SHINGLES VACCINES (#1) 2011 INFLUENZA VACCINE 01/24/2019 Procedures Comments Procedure Name Priority Date/Time Associated [...] CULTURE Routine 03/22/2018 10:50 AM CDT after 10/26/2017 Results * Syphilis treponemal IgG (03/22/2018 10:50 AM CDT) Syphilis treponemal IgG Non-reactiveComment: Non-reactive [facility] DEPARTMENT OF Non-reactive: No serological PATHOLOGY AND evidence of Syphilis infection GENOMIC MEDICINE Specimen Serum Performing Organization Address City/State/Zipcode Phone Number [facility] DEPARTMENT OF [address] [place] [address] PATHOLOGY AND GENOMIC MEDICINE * Urinalysis screen and microscopy, with reflex to culture (03/22/2018 10:50 AM CDT) Specimen site Clean catch [facility] DEPARTMENT OF PATHOLOGY AND GENOMIC MEDICINE Color, UA Yellow [facility] DEPARTMENT OF PATHOLOGY AND GENOMIC MEDICINE Appearance, UA Cloudy [facility] DEPARTMENT OF PATHOLOGY AND GENOMIC MEDICINE Specific gravity, UA 1.017 1.001 - 1.035 [facility] DEPARTMENT OF PATHOLOGY AND GENOMIC MEDICINE pH, UA 7.0 5.0 - 8.5 [facility] DEPARTMENT OF PATHOLOGY AND GENOMIC MEDICINE Protein, UA 2+ (A) Negative [facility] DEPARTMENT OF PATHOLOGY AND GENOMIC MEDICINE Glucose, UA Negative Negative [facility] DEPARTMENT OF PATHOLOGY AND GENOMIC MEDICINE Ketones, UA Negative Negative [facility] DEPARTMENT OF PATHOLOGY AND GENOMIC MEDICINE Bilirubin, UA Negative Negative [facility] DEPARTMENT OF PATHOLOGY AND GENOMIC MEDICINE Blood, UA Small (A) Negative [facility] DEPARTMENT OF PATHOLOGY AND GENOMIC MEDICINE Nitrite, UA Negative Negative [facility] DEPARTMENT OF PATHOLOGY AND GENOMIC MEDICINE Urobilinogen, UA 4.0 (A) <2.0 [facility] DEPARTMENT OF PATHOLOGY AND GENOMIC MEDICINE Leukocyte esterase, UA Large (A) Negative [facility] DEPARTMENT OF PATHOLOGY AND GENOMIC MEDICINE Epithelial cells, UA 1 /HPF [facility] DEPARTMENT OF PATHOLOGY AND GENOMIC MEDICINE Round epithelial cells, 1 0 - 1 /HPF [facility] DEPARTMENT OF UA PATHOLOGY AND GENOMIC MEDICINE WBC, UA >180 (H) 0 - 1 /HPF [facility] DEPARTMENT OF PATHOLOGY AND GENOMIC MEDICINE RBC, UA None seen 0 - 5 /HPF [facility] DEPARTMENT OF PATHOLOGY AND GENOMIC MEDICINE Bacteria, UA Few None seen [facility] DEPARTMENT OF PATHOLOGY AND GENOMIC MEDICINE WBC clumps, UA Moderate (A) [facility] DEPARTMENT OF PATHOLOGY AND GENOMIC MEDICINE Yeast, UA Few (A) [facility] DEPARTMENT OF PATHOLOGY AND GENOMIC MEDICINE Yeast with pseudohyphae, Few (A) [facility] DEPARTMENT OF UA PATHOLOGY AND GENOMIC MEDICINE Hyaline casts, UA 2 /LPF [facility] DEPARTMENT OF PATHOLOGY AND GENOMIC MEDICINE Specimen Urine Performing Organization Address City/[facility] Phone Number [place] [phone] PATHOLOGY AND GENOMIC MEDICINE * Estimated GFR (03/22/2018 10:50 AM CDT) Estimated GFR 22 (A) mL/min/1.73 m2 [facility] DEPARTMENT OF Comment: PATHOLOGY AND [employer] GENOMIC MEDICINE rpretation G1 >=90 Normal or high G2 60-89Mildly decreased [id number] Mildly to moderately decreased [id number] Moderately to severely decreased G4 15-29Severely decreased G5 <15Kidney failure The eGFR was calculated using the Chronic Kidney Disease Epidemiology Collaboration (CKD-EPI) equation. Interpretation is based on recommendations of the National Kidney Foundation-Kidney Disease Outcomes Quality Initiative (NKF-KDOQI) published in 2014. Specimen Plasma specimen Performing Organization Address City/[facility]/Zipcode Phone Number [place] [phone] [place] [phone] PATHOLOGY AND GENOMIC MEDICINE * Opiates, s/p, [...] laboratory. Test developed and characteristics determined by [facility]. See Compliance Statement B: [employer]/ Codeine, s/p, quant <2 ng/mL [facility] Morphine, s/p, quant <2 ng/mL [facility] Hydrocodone, s/p, quant <2 ng/mL [facility] Hydromoprhone, s/p, quant <2 ng/mL [facility] Oxycodone, s/p, quant <2 ng/mL [facility] Oxymorphone, s/p, quant <2 ng/mL [facility] Comment: Performed by [facility], [address], [place] [id number] www.[facility], Martin Moe MD - Lab. Director Specimen Serum Performing Organization Address City/State/Zipcode Phone Number [facility] [address] [place] [address] * HIV Ag/Ab combination (03/22/2018 10:50 AM CDT) HIV Ag/Ab combination Non-reactive Non-reactive [facility] DEPARTMENT OF PATHOLOGY AND GENOMIC MEDICINE Specimen Blood Performing Organization Address City/State/Zipcode Phone Number [address] [address] PATHOLOGY AND GENOMIC MEDICINE * TB T-SPOT (03/22/2018 10:50 AM CDT) TB T-SPOT SEE NOTE [facility] DEPARTMENT OF Comment: PATHOLOGY AND T-SPOT [...] FOR USE WITH T=SPOT.TB TEST. Performed by: [facility] Molecular Tuberculosis Laboratory [facility] ([id number]) [place] [address] Specimen Blood Performing Organization Address [facility] [place] [address] PATHOLOGY AND [facility] * Nicotine and metabolites, serum (03/22/2018 10:50 AM CDT) Nicotine <2.0 0.0 - 2.0 ng/mL [facility] DEPARTMENT OF PATHOLOGY AND GENOMIC MEDICINE Cotinine 3.4 (H) 0.0 - 2.0 ng/mL [facility] DEPARTMENT OF PATHOLOGY AND GENOMIC MEDICINE 3-IV-xfurlgma <5.0 0.0 - 5.0 ng/mL [facility] DEPARTMENT OF Comment: PATHOLOGY AND This test was developed and [facility] its performance characteristics determined by the Department of Pathology and Genomic Medicine, [facility]. Serum nicotine and its metabolites cotinine and 0-ZI-ssetsgwg are tested by HPLC tandem mass spectrometry. It has not been cleared or approved by FDA. The laboratory is regulated under CLIA as qualified to perform high-complexity testing. This test is used for clinical purposes. It should not be regarded as investigational or for research. Specimen Blood Performing Organization Address [facility] [place] [address] PATHOLOGY AND [facility] * Hepatitis B surface Ab, quantitative (03/22/2018 10:50 AM CDT) Hepatitis B surface Ab >1000.00 IU/L [facility] Comment: The anti-HBs is greater than [...] refer to MMWR June 14, 2013/Vol. 62(No. 10);-. Reference Interval: anti-HBs 9.99 IU/L or less ....... Negative 10.00 IU/L or greater .... Positive Results greater than 1,000.00 IU/L are reported as greater than 1,000.00 IU/L. This assay should not be used for blood donor screening, associated re-entry protocols, or for screening Human Cell, Tissues and Cellular and Tissue-Based Products (HCT/P). Performed by [facility], [address] [place] [id number] www.[facility], Martin Moe MD - Lab. Director Specimen Serum Performing Organization Address [facility]code Phone Number [employer] [address] * Hepatitis C antibody (03/22/2018 10:50 AM CDT) Hepatitis C Ab Non-reactive Non-reactive [facility] DEPARTMENT OF PATHOLOGY AND GENOMIC MEDICINE Specimen Blood Performing Organization Address [facility] [place] [address] PATHOLOGY AND GENOMIC MEDICINE * Hepatitis A antibody total (03/22/2018 10:50 AM CDT) Hepatitis A total Ab Non-reactive Non-reactive [facility] DEPARTMENT OF PATHOLOGY AND [facility] Specimen Blood Performing Organization Address [facility] [place] [address] PATHOLOGY AND [facility] * Drug marques 9, ser/leonid, scrn w/rflx to conf (03/22/2018 10:50 AM CDT) Amphetamines, s/p, screen Negative Cutoff 30 ng/mL [facility] Methamphetamine, s/p, Negative Cutoff 30 ng/mL [...] forensic standards. Drug screen comments, See Note [facility] serum Comment: INTERPRETIVE INFORMATION: Drug Screen [...] use. Test developed and characteristics determined by [facility]. See Compliance Statement B: [facility]/CS Performed by [facility], [address] [place] [id number] www[facility], Martin Moe MD - Lab. Director Specimen Serum Performing Organization Address [facility]code Phone Number [facility] [address] [place] [address] * ABORh - transplant (03/22/2018 10:50 AM CDT) ABO grouping O [facility] DEPARTMENT OF PATHOLOGY AND GENOMIC MEDICINE Rh type POS [facility] DEPARTMENT OF PATHOLOGY AND GENOMIC MEDICINE Specimen Blood Performing Organization Address [facility] Phone Number [facility] [place] [address] PATHOLOGY AND GENOMIC MEDICINE * Hepatitis B core antibody total (03/22/2018 10:50 AM CDT) Hepatitis B core total Ab Reactive (A) Non-reactive [facility] DEPARTMENT OF PATHOLOGY AND GENOMIC MEDICINE Specimen Blood Performing Organization Address [facility] [place] [address] PATHOLOGY AND [facility] * THC metabolite, s/p, quant (03/22/2018 10:50 AM CDT) 00-ufu-5-carboxy-THC, 39 ng/mL [facility] s/p, quant Comment: INTERPRETIVE INFORMATION: THC Metabolite, Serum or Plasma, Quantitative Methodology: Quantitative Liquid Chromatography-Tandem Mass Spectrometry. Positive cutoff: 5 ng/mL For medical purposes only; not valid for forensic use. The drug analyte detected in this assay, 9-carboxy THC, is a metabolite of rgrfx-3-zzmgqckzxxzpxbcxseju (THC).Detection of 9-carboxy THC suggests use of, or exposure to, a product containing THC.This test cannot distinguish between prescribed or non-prescribed forms of THC, nor can it distinguish between active or passive use.The plasma half-life for 9-carboxy THC metabolite is estimated to range from 4-12 hours. Test developed and characteristics determined by [facility]. See Compliance Statement B: [employer]/CS Performed by [facility], [address] [place] [address] www.[facility], Martin Moe MD - Lab. Director Specimen Serum Performing Organization Address [facility] Phone Number [facility] [address] [place] [address] * C-peptide (03/22/2018 10:50 AM CDT) C-peptide 3.5 1.1 - 4.4 ng/mL [facility] DEPARTMENT OF PATHOLOGY AND GENOMIC MEDICINE Specimen Plasma specimen Performing Organization Address City/[facility] Phone Number [facility] [place] [address] PATHOLOGY AND GENOMIC MEDICINE * Hepatitis B surface antibody (03/22/2018 10:50 AM CDT) Hepatitis B surface Ab Reactive (A) Non-reactive [facility] DEPARTMENT OF PATHOLOGY AND GENOMIC MEDICINE Specimen Blood Performing Organization Address City/[facility] Phone Number [facility] [place] [address] PATHOLOGY AND GENOMIC MEDICINE * Hepatitis B surface antigen (03/22/2018 10:50 AM CDT) Hepatitis B surface Ag Non-reactive Non-reactive [facility] DEPARTMENT OF PATHOLOGY AND GENOMIC MEDICINE Specimen Blood Performing Organization Address City/[facility] Phone Number [facility] [place] [address] PATHOLOGY AND GENOMIC MEDICINE * Partial thromboplastin time, activated (03/22/2018 10:50 AM CDT) PTT 32.3 23.0 - 36.0 sec [facility] DEPARTMENT OF Comment: PATHOLOGY AND PTT therapeutic range for [facility] unfractionated heparin is 61.0-112.0 seconds which corresponds to Anti-Xa 0.3-0.7 U/ml. Specimen Blood Performing Organization Address City/[facility] Phone Number [facility] [place] [address] PATHOLOGY AND GENOMIC MEDICINE * Prothrombin time with INR (03/22/2018 10:50 AM CDT) Prothrombin time 13.6 12.0 - 15.0 sec [facility] DEPARTMENT OF PATHOLOGY AND GENOMIC MEDICINE INR 1.0 [facility] DEPARTMENT OF Comment: PATHOLOGY AND The International Normalized [facility] Ratio (INR) is a therapeutic monitoring tool for patients who are stable on oral anticoagulant therapy. An INR of 2.0-3.0 is suggested for deep vein thrombosis/pulmonary embolism. Specimen Blood Performing Organization Address City/[facility] Phone Number [facility] [place] [address] PATHOLOGY AND GENOMIC MEDICINE * Gram stain (03/22/2018 10:50 AM CDT) Gram stain result Moderate WBC's [facility] DEPARTMENT OF Few Budding yeast, PATHOLOGY AND pseudohyphae present GENOMIC MEDICINE Comment: Specimen Information [id number] Specimen Source: Urine Specimen Site: Clean catch Specimen Urine Performing Organization Address [facility]/Zipcode Phone Number [facility] DEPARTMENT OF [address] [place] [address] PATHOLOGY AND GENOMIC MEDICINE * CBC with platelet and differential (03/22/2018 10:50 AM CDT) WBC 5.71 4.50 - 11.00 k/uL [facility] DEPARTMENT OF PATHOLOGY AND GENOMIC MEDICINE RBC 5.31 4.40 - 6.00 m/uL [facility] DEPARTMENT OF PATHOLOGY AND GENOMIC MEDICINE HGB 15.8 14.0 - 18.0 g/dL [facility] DEPARTMENT OF PATHOLOGY AND GENOMIC MEDICINE HCT 47.7 41.0 - 51.0 % [facility] DEPARTMENT OF PATHOLOGY AND GENOMIC MEDICINE MCV 89.8 82.0 - 100.0 fL [facility] DEPARTMENT OF PATHOLOGY AND GENOMIC MEDICINE MCH 29.8 27.0 - 34.0 pg [facility] DEPARTMENT OF PATHOLOGY AND GENOMIC MEDICINE MCHC 33.1 31.0 - 37.0 g/dL [facility] DEPARTMENT OF PATHOLOGY AND GENOMIC MEDICINE RDW - SD 46.6 37.0 - 55.0 fL [facility] DEPARTMENT OF PATHOLOGY AND GENOMIC MEDICINE MPV 9.5 8.8 - 13.2 fL [facility] DEPARTMENT OF PATHOLOGY AND GENOMIC MEDICINE Platelet count 144 (L) 150 - 400 k/uL [facility] DEPARTMENT OF PATHOLOGY AND GENOMIC MEDICINE Nucleated RBC 0.00 /100 WBC [facility] DEPARTMENT OF PATHOLOGY AND GENOMIC MEDICINE Neutrophils 60.5 39.0 - 69.0 % [facility] DEPARTMENT OF PATHOLOGY AND GENOMIC MEDICINE Lymphocytes 30.5 25.0 - 45.0 % [facility] DEPARTMENT OF PATHOLOGY AND GENOMIC MEDICINE Monocytes 7.2 0.0 - 10.0 % [facility] DEPARTMENT OF PATHOLOGY AND GENOMIC MEDICINE Eosinophils 1.2 0.0 - 5.0 % [facility] DEPARTMENT OF PATHOLOGY AND GENOMIC MEDICINE Basophils 0.2 0.0 - 1.0 % [facility] DEPARTMENT OF PATHOLOGY AND GENOMIC MEDICINE Immature granulocytes 0.4Comment: "Immature 0.0 - 1.0 % [facility] DEPARTMENT OF granulocytes" (promyelocytes, PATHOLOGY AND myelocytes, metamyelocytes) GENOMIC MEDICINE Specimen Blood Performing Organization Address City/[facility]/Zipcode Phone Number [facility] DEPARTMENT OF [address] [place] [address] PATHOLOGY AND GENOMIC MEDICINE * Urine culture (03/22/2018 10:50 AM CDT) Urine culture isolate Paula albicans [facility] DEPARTMENT OF 10-4 cfu/ml PATHOLOGY AND The performance GENOMIC MEDICINE characteristics of this assay on this isolate were validated by the Microbiology Laboratory at [facility].This source has not been approved by the [...] Urine culture isolate Mixed Gram positive vlad [facility] DEPARTMENT OF 10-1 cfu/ml PATHOLOGY AND (A) GENOMIC MEDICINE Specimen Urine Performing Organization Address City/State/[facility] Phone Number [facility] DEPARTMENT OF [address] [place] [address] PATHOLOGY AND GENOMIC MEDICINE * Serum electrophoresis (03/22/2018 10:50 AM CDT) Protein 7.0 6.3 - 8.3 g/dL [facility] DEPARTMENT OF Comment: PATHOLOGY AND [place] GENOMIC MEDICINE 4.6-7.0 g/dL 1 week 4.4-7.6 g/dL 7 months-1year 5.1-7.3 g/dL 1-2 years5.6-7 .5 g/dL >3 years6.0-8 .0 g/dL 18-150 6.3-8.3 g/dL SPE albumin 4.72 4.00 - 5.30 g/dL [facility] DEPARTMENT OF PATHOLOGY AND GENOMIC MEDICINE SPE alpha 1 0.18 0.10 - 0.25 g/dL [facility] DEPARTMENT OF PATHOLOGY AND GENOMIC MEDICINE SPE alpha 2 0.58 0.58 - 0.84 g/dL [facility] DEPARTMENT OF PATHOLOGY AND GENOMIC MEDICINE SPE beta 0.69 0.50 - 1.10 g/dL [facility] DEPARTMENT OF PATHOLOGY AND GENOMIC MEDICINE SPE gamma 0.83 0.60 - 1.30 g/dL [facility] DEPARTMENT OF PATHOLOGY AND GENOMIC MEDICINE SPE extended See CommentComment: A normal [facility] DEPARTMENT OF interpretation serum protein study. PATHOLOGY AND GENOMIC MEDICINE SPE interpretation See Comment [facility] DEPARTMENT OF Comment: PATHOLOGY AND Joanna Henderson, PhD; Nasim GENOMIC MEDICINE MD Trixie, MPH; Ruben Berry, PhD; Anastacio Waddell MD, PhD Specimen Serum Performing Organization Address City/State/Zipcode Phone Number [address] [address] PATHOLOGY AND GENOMIC MEDICINE * Prostate specific antigen (03/22/2018 10:50 AM CDT) PSA 5.7 (H) 0.0 - 4.0 ng/mL [facility] DEPARTMENT OF Comment: PATHOLOGY AND The MAGALI 8000 PSA immunoassay [facility] was used. Results obtained with different assay methods or kits should not be used interchangeably and may be different. Specimen Plasma specimen Performing Organization Address City/State/Zipcode Phone Number [address] [address] PATHOLOGY [facility] * Comprehensive metabolic panel (03/22/2018 10:50 AM CDT) Sodium 143 135 - 148 mEq/L [facility] DEPARTMENT OF PATHOLOGY AND GENOMIC MEDICINE Potassium 3.5 3.5 - 5.0 mEq/L [facility] DEPARTMENT OF PATHOLOGY AND GENOMIC MEDICINE Chloride 98 98 - 112 mEq/L [facility] DEPARTMENT OF PATHOLOGY AND GENOMIC MEDICINE CO2 31 24 - 31 mEq/L [facility] DEPARTMENT OF PATHOLOGY AND GENOMIC MEDICINE Anion gap 14@ANIO 7 - 15 mEq/L [facility] DEPARTMENT OF PATHOLOGY AND GENOMIC MEDICINE BUN 23 (H) 6 - 20 mg/dL [facility] DEPARTMENT OF PATHOLOGY AND GENOMIC MEDICINE Creatinine 3.00 (H) 0.70 - 1.20 mg/dL [facility] DEPARTMENT OF PATHOLOGY AND GENOMIC MEDICINE Glucose 61 (L) 65 - 99 mg/dL [facility] DEPARTMENT OF PATHOLOGY AND GENOMIC MEDICINE Calcium 9.0 8.3 - 10.2 mg/dL [facility] DEPARTMENT OF PATHOLOGY AND GENOMIC MEDICINE Protein 7.6 6.3 - 8.3 g/dL [facility] DEPARTMENT OF Comment: PATHOLOGY AND GENOMIC MEDICINE 4.6-7.0 g/dL 1 week 4.4-7.6 g/dL 7 months-1year 5.1-7.3 g/dL 1-2 years5.6-7 .5 g/dL >3 years6.0-8 .0 g/dL 18-150 6.3-8.3 g/dL Albumin 3.9 3.5 - 5.0 g/dL [facility] DEPARTMENT OF PATHOLOGY AND GENOMIC MEDICINE A/G ratio 1.1 0.7 - 3.8 [facility] DEPARTMENT OF PATHOLOGY AND GENOMIC MEDICINE Alkaline phosphatase 102 40 - 129 U/L [facility] DEPARTMENT OF PATHOLOGY AND GENOMIC MEDICINE AST 19 10 - 50 U/L [facility] DEPARTMENT OF PATHOLOGY AND GENOMIC MEDICINE ALT 15 5 - 50 U/L [facility] DEPARTMENT OF PATHOLOGY AND GENOMIC MEDICINE Total bilirubin 0.8 0.0 - 1.2 mg/dL [facility] DEPARTMENT OF PATHOLOGY AND GENOMIC MEDICINE Specimen Plasma specimen Performing Organization Address City/State/Zipcode Phone Number [facility] DEPARTMENT OF [facility] [place] [address] PATHOLOGY AND GENOMIC MEDICINE after 10/26/2017 Insurance Payer Benefit Subscriber ID Type Phone Address Plan / Group MEDICARE MEDICARE xxxxxxxxxx Medicare [place] PART A AND B [employer] AMER[employer] xxxxxxxxx [facility] (Home) [place] [address] Marek Porter A Transplant Self [address] [place] [address] (Home) [place] [address] Advance Directives Patient has advance care planning documents on file. For more information, ilene garcia contact: Devin Mike [address] [place] [address]
--- OUTSIDE RECORDS SUMMARY | 2018-10-27 01:03 | XMS REPORT | Summary of Care ---
Author Author [facility] Organization [facility] Address Unknown Phone Unavailable Encounter DAISY Blackburn(TARSHA) [id number] Date(s): 07/20/18 - 07/20/18 [facility] [email or web address], [address] [place] [address] [phone] Attending Physician: Jevon Romero MD Referring Physician: Jevon Romero MD Vital Signs No data available for [...]
--- OUTSIDE RECORDS SUMMARY | 2018-10-27 01:03 | XMS REPORT | Continuity of Care Document ---
Author Author [facility] Interface Address Unknown Phone Unavailable Problems Problem Status Onset Date Classification Date Reported Comments Source Other specified complication of vascular prosthetic devices, implants and grafts, initial encounter 10/05/2017 12/28/2017 [facility] UNK Active 08/30/2017 [facility] LAB Active 11/30/2016 [facility] LABS Active 09/23/2016 [facility] Discharge Diagnosis: Cough 06/24/2016 06/27/2016 [facility] Discharge Diagnosis: Acute upper respiratory infection, unspecified 06/24/2016 06/27/2016 [facility] COUGH, VOMITING, VOMITING Active 06/24/2016 [facility] PRE OP CLEARANCE FOR RENAL TRANSPLANT Active 02/08/2016 [facility] CCL/R Active 02/08/2016 [facility] PAIN IN RIGHT LEG; DYSPNEA, UNSPECIFIED Active 02/05/2016 [facility] BDDC-COLON SCREENING Active 01/06/2016 [facility] PA KIDNEY ACCT FC USE ONLY Active 12/23/2015 [facility] COLONOSCOPY SCREENING Active 12/23/2015 [facility] CARDIAC CLEARANCE Active 12/23/2015 [facility] PRE RENAL EVAL Active 12/03/2015 [facility] M79.609 Active 07/21/2015 [facility] N18.6 Active 07/21/2015 [facility] Discharge Diagnosis: Encounter for postoperative wound check 03/27/2015 03/30/2015 [facility] ARM PAIN Active 03/27/2015 [facility] Diabetes Active Problem 08/04/2015 [facility] Hypertension Active Problem 08/04/2015 [facility] Renal failure Resolved Problem 08/04/2015 [facility] BPH Active Problem 07/22/2018 [facility] Diabetes mellitus type 2 Active Problem 07/22/2018 [facility] DM (<span ID="[id number]</span>) Active Problem 07/22/2018 [facility] Enlarged prostate [facility] (<span ID="[id number]">Confirmed</span>) Active Problem 07/22/2018 [facility] ESRD on dialysis Active Problem 07/22/2018 [facility] Hypertensive nephrosclerosis Active Problem 07/22/2018 [facility] Obesity Active Problem 07/22/2018 [facility] Obstructive uropathy Active Problem 07/22/2018 [facility] Polyp of prostate Active Problem 07/22/2018 [facility] Compression of vein 12/28/2017 [facility] Hypertensive chronic kidney disease with stage 5 chronic kidney disease or end stage renal disease 12/28/2017 [facility] End stage renal disease 12/28/2017 [facility] Dependence on renal dialysis 12/28/2017 [facility] Atherosclerotic heart disease of [place] coronary artery without angina pectoris 12/28/2017 [facility] END STAGE RENAL DISEASE Active [facility] PAIN IN UNSPECIFIED LIMB Active [facility] ENLARGED PROSTATE WITH LOWER URINARY TRA Active [facility] ENCNTR FOR GENERAL ADULT MEDICAL EXAM W/ Active [facility] ENCOUNTER FOR PREPROCEDURAL LABORATORY E Active [facility] UNSP COMP OF CARDIAC AND VASCULAR PROSTH Active [facility] Medications Medication Details Route Status Patient Instructions Ordering Provider Order Date Source ondansetron (ANES) Route: IV, Drug form: INJ, ONCE, Stop date: 09/21/17 11:41:00 CDT Inactive 09/21/2017 [facility] metoclopramide (ANES) Route: IV, Drug form: INJ, ONCE, Stop date: 09/21/17 11:36:00 CDT Inactive 09/21/2017 [facility] fentaNYL (ANES) Route: IV, Drug form: INJ, ONCE, Stop date: 09/21/17 11:36:00 CDT Inactive 09/21/2017 [facility] midazolam (ANES) Route: IV, Drug form: SOLN, ONCE, Stop date: 09/21/17 11:36:00 CDT Inactive 09/21/2017 [facility] propofol (ANES) Route: IV, Drug form: INJ, ONCE, Stop date: 09/21/17 11:36:00 CDT Inactive 09/21/2017 [facility] lidocaine (ANES) Route: IV, Drug form: INJ, ONCE, Stop date: 09/21/17 11:36:00 CDT Inactive 09/21/2017 [facility] ceFAZolin (ANES) Route: IV, Drug form: INJ, ONCE, Stop date: 09/21/17 11:36:00 CDT Inactive 09/21/2017 [facility] phenylephrine (ANES) Route: IV, Drug form: INJ, ONCE, Stop date: 09/21/17 11:36:00 CDT Inactive 09/21/2017 [facility] ePHEDrine (ANES) Route: IV, Drug form: INJ, ONCE, Stop date: 09/21/17 11:36:00 CDT Inactive 09/21/2017 [facility] vancomycin (ANES) 1000 mg Route: IV, Drug form: INJ, Start date: 09/21/17 10:30:00 CDT, Stop date: 09/21/17 11:30:00 CDT Inactive 09/21/2017 [facility] Sodium Chloride 0.9% IV (ANES) 500 mL Route: IV, Total Volume: 500, Start date: 09/21/17 10:12:00 CDT, Stop date: 09/21/17 11:12:00 CDT Inactive 09/21/2017 [facility] Albuterol 0.833 MG/ML / Ipratropium [place] 0.167 MG/ML Inhalant Solution 3 mL, Route: NEB, Dosing Weight 127.727, kg, ONCE, STAT, Start date: 09/21/17 6:35:00 CDT, Stop date: 09/21/17 6:35:00 CDT Inactive 09/21/2017 [facility] Sodium Chloride 0.9% IV 500 mL 500 mL, Rate: 25 ml/hr, Infuse over: 20 hr, Route: IV, Dosing Weight 127.727 kg, Total Volume: 500, Start date: 09/21/17 6:35:00 CDT, Duration: 30 day, Stop date: 10/21/17 6:34:00 CDT, 2.6, m2 Inactive 09/21/2017 [facility] Ancef + sterile water 20 mL 2 gm, Route: IV, Drug form: PDR/INJ, PRE OP, Dosing Weight 139.455, kg, Start date: 09/14/17 11:00:00 CDT, Duration: 1 day, Stop date: 09/15/17 10:59:00 CDT, ABX Indication: Surgical ProphylaxisNotes: (Same As: Rosibel Menon) MEDICATION WASTE Product Size: 1000 mg Product Wasted: ___ mg No Longer Active 09/14/2017 [facility] Vancomycin 1 gm, Route: IVPB, PRE [...] Wasted: ___ mg No Longer Active 09/14/2017 [facility] Aspirin 81 MG Enteric Coated Tablet 81 mg=1 tab, PO, Daily, # 90 tab, 3 Refill(s) Active 09/14/2017 [facility] pantoprazole 40 mg oral enteric coated tablet 40 mg=1 tab, PO, Daily, 0 Refill(s) Active 09/14/2017 [facility] Insulin Glargine 100 UNT/ML Injectable Solution [Lantus] 65 unit, SUB-Q, Bedtime, # 10 mL, 3 Refill(s) Active 09/14/2017 [facility] buPROPion 150 mg/12 hours (SR) oral tablet, extended release 150 mg=1 tab, PO, BID, 0 Refill(s) Active 09/14/2017 [facility] atorvastatin 20 mg oral tablet 20 mg=1 tab, PO, Bedtime, # 30 tab, 3 Refill(s), Pharmacy: [id number] Active 02/05/2016 [facility] Heart Failure GoLYTELY oral powder for reconstitution 240 mL, PO, Q10Min, # 1 ea, 0 Refill(s), Pharmacy: [id number] Active 01/06/2016 [facility] Melatonin 10 mg oral capsule 20 mg=2 cap, PO, Bedtime, 0 Refill(s) Active 12/23/2015 [facility] sertraline 100 mg oral tablet 100 mg=1 tab, PO, Daily, # 30 tab, 0 Refill(s) Active 12/23/2015 [facility] gabapentin 400 MG Oral Capsule 400 mg=1 cap, PO, TID, # 90 cap, 1 Refill(s) Active 12/23/2015 [facility] glyBURIDE 2.5 mg oral tablet 2.5 mg=1 tab, PO, Breakfast, # 30 tab, 0 Refill(s) Active 12/23/2015 [facility] tramadol hydrochloride 50 MG Oral Tablet 50 mg=1 tab, PO, Q6H, PRN Pain, # 40 tab, 0 Refill(s) Active 12/23/2015 [facility] Acetaminophen 325 MG / Hydrocodone Bitartrate 5 MG Oral Tablet 1 tab, PO, Q4H, PRN Pain, # 60 tab, 0 Refill(s) Active 08/01/2015 [facility] Hyoscyamine Sulfate 0.125 MG Sublingual Tablet [Levsin] 0.125 mg=1 tab, SL, Q4H, for bladder spasms, # 30 tab, 0 Refill(s) Active 08/01/2015 [facility] tamsulosin 0.4 mg oral capsule 0.4 mg=1 cap, PO, Daily, # 30 cap, 0 Refill(s) Active 08/01/2015 [facility] Insulin, Aspart, Human 5 unit, 0.05 mL, Route: SUB-Q, Drug form: SOLN, TID-Before Meals, Dosing Weight 126.364, kg, PRN Blood Glucose Results, Start date: 08/01/15 7:25:00, Duration: 30 day, Stop date: 08/31/15 7:24:00Notes: Roll in palms of hands gently; Do not shake vigorously. (Same as: NovoLOG) "single patient use only" WASTE: F/P - Black; E - Municipal Trash Bin Stable for 28 days at room temperature. Expires in days from Date Inactive 08/01/2015 [facility] Dextrose 50% Syringe 12.5 gm, 25 mL, Route: IVP, Drug Form: INJ, Dosing Weight 126.364, kg, PRN, PRN Blood Glucose Results, Start date: 08/01/15 7:25:00, Duration: 30 day, Stop date: 08/31/15 7:24:00 Inactive 08/01/2015 [facility] Glucagon 1 mg, Route: IM, Drug form: PDR/INJ, PRN, Dosing Weight 126.364, kg, PRN Blood Glucose Results, Start date: 08/01/15 7:25:00, Duration: 30 day, Stop date: 08/31/15 7:24:00 Inactive 08/01/2015 [facility] nitroglycerin 0.4 mg sublingual tablet 0.4 mg, 1 tab, Route: SL, Drug form: TAB, Q5Min, PRN Chest Pain, Start date: 07/31/15 21:04:00, Duration: 30 day, Stop date: 08/30/15 21:03:00Notes: (Same as:Nitroquick, Nitrostat) "Do Not Crush" Sublingual tablet No Longer Active 08/01/2015 [facility] atropine 0.5 mg, 5 mL, Route: IVP, Drug form: INJ, PRN, PRN Bradycardia, Start date: 07/31/15 21:04:00, Duration: 30 day, Stop date: 08/30/15 21:03:00 No Longer Active 08/01/2015 [facility] Detrol LA 4 mg, 1 cap, Route: PO, Drug form: CAP, ONCE, Dosing Weight 126.364, kg, Start date: 07/31/15 19:04:00, Stop date: 07/31/15 19:04:00Notes: Do Not Crush. (Same As: Detrol LA) Inactive 08/01/2015 [facility] Detrol LA 4 mg, 1 cap, Route: PO, Drug form: CAP, ONCE, Dosing Weight 126.364, kg, Start date: 07/31/15 18:08:00, Stop date: 07/31/15 18:08:00Notes: Do Not Crush. (Same As: Detrol LA) Inactive 08/01/2015 [facility] Morphine 2 mg, 1 mL, Route: IVP, Drug form: INJ, Q3H, Dosing Weight 126.364, kg, PRN Pain Score 1-3, Start date: 07/31/15 16:54:00, Duration: 30 day, Stop date: 08/30/15 16:53:00Notes: (Same as:MORPhine Sulfate) No Longer Active 07/31/2015 [facility] acetaminophen-codeine #3 1 tab, Route: PO, Drug Form: TAB, Dosing Weight 126.364, kg, Q4H, PRN Pain Score 4-6, Start date: 07/31/15 16:54:00, Duration: 30 day, Stop date: 08/30/15 16:53:00Notes: Do not exceed 4gm/day of acetaminophen. (Same as: Tylenol with Codeine # 3) No Longer Active 07/31/2015 [facility] Belladonna Alkaloids 16.2 MG / Opium 60 MG Rectal Suppository 1 supp, Route: IA, Dosing Weight 126.364, kg, ONCE, Start date: 07/31/15 16:49:00, Stop date: 07/31/15 16:49:00 Inactive 07/31/2015 [facility] Hydromorphone 0.5 mg, Route: IVP, Q5Min, Dosing Weight 126.364, kg, PRN Pain Score 7-10, Start date: 07/31/15 16:37:00, Duration: 4 doses or times, Stop date: Limited # of times Inactive 07/31/2015 [facility] Morphine 2 mg, Route: IVP, Q5Min, Dosing Weight 126.364, kg, PRN Pain Score 4-6, Start date: 07/31/15 16:37:00, Duration: 5 doses or times, Stop date: Limited # of times Inactive 07/31/2015 [facility] Ketorolac 30 mg, Route: IVP, ONCE, Dosing Weight 126.364, kg, Start date: 07/31/15 16:37:00, Duration: 1 doses or times, Stop date: 07/31/15 16:37:00 Inactive 07/31/2015 [facility] Oxycodone 5 mg, Route: PO, Drug form: TAB, Q4H, Dosing Weight 126.364, kg, PRN Pain Score 4-6, Start date: 07/31/15 16:37:00, Duration: 30 day, Stop date: 08/30/15 16:36:00 Inactive 07/31/2015 [facility] Glycopyrrolate 0.2 mg, Route: IVP, Q5Min, Dosing Weight 126.364, kg, PRN Bradycardia, Start date: 07/31/15 16:37:00, Duration: 3 doses or times, Stop date: Limited # of times Inactive 07/31/2015 [facility] Ondansetron 4 mg, Route: IVP, ONCE, Dosing Weight 126.364, kg, PRN Nausea & Vomiting, Start date: 07/31/15 16:37:00 Inactive 07/31/2015 [facility] Naloxone 0.04 mg, Route: IVP, Q2MIN, Dosing Weight 126.364, kg, PRN Narcotic Reversal, Start date: 07/31/15 16:37:00, Duration: 8 doses or times, Stop date: Limited # of times Inactive 07/31/2015 [facility] Flumazenil 0.2 mg, Route: IVP, PRN, Dosing Weight 126.364, kg, PRN Benzodiazepine Reversal, Initial dose, Start date: 07/31/15 16:37:00, Duration: 30 day, Stop date: 08/30/15 16:36:00 Inactive 07/31/2015 [facility] Diphenhydramine 12.5 mg, Route: IVP, Drug form: INJ, Q6H, Dosing Weight 126.364, kg, PRN Itching, Start date: 07/31/15 16:37:00, Duration: 30 day, Stop date: 08/30/15 16:36:00 Inactive 07/31/2015 [facility] Fentanyl 25 microgram, Route: IVP, Q5Min, Dosing Weight 126.364, kg, PRN Pain Score 4-6, Start date: 07/31/15 16:37:00, Duration: 4 doses or times, Stop date: Limited # of times Inactive 07/31/2015 [facility] Meperidine 12.5 mg, Route: IVP, Q30Min, Dosing Weight 126.364, kg, PRN Other -See Comment, For shivering, Start date: 07/31/15 16:37:00, Duration: 2 doses or times, Stop date: Limited # of times Inactive 07/31/2015 [facility] Dexamethasone 4 mg, Route: IVP, ONCE, Dosing Weight 126.364, kg, PRN Nausea & Vomiting, Start date: 07/31/15 16:37:00 Inactive 07/31/2015 [facility] Promethazine 6.25 mg, Route: IVPB, ONCE, Dosing Weight 126.364, kg, PRN Nausea & Vomiting, Start date: 07/31/15 16:37:00 Inactive 07/31/2015 [facility] Metoprolol 1 mg, Route: IVP, Q5Min, Dosing Weight 126.364, kg, PRN Other -See Comment, Start date: 07/31/15 16:37:00, Duration: 5 doses or times, Stop date: Limited # of times Inactive 07/31/2015 [facility] Hydralazine 10 mg, Route: IVP, Q20Min, Dosing Weight 126.364, kg, PRN Elevated BP, Start date: 07/31/15 16:37:00, Duration: 2 doses or times, Stop date: Limited # of times Inactive 07/31/2015 [facility] ceFAZolin (ANES) Route: IV, Drug form: INJ, ONCE, Stop date: 07/31/15 16:25:00 Inactive 07/31/2015 [facility] ondansetron (ANES) Route: IV, Drug form: INJ, ONCE, Stop date: 07/31/15 16:25:00 Inactive 07/31/2015 [facility] Ciprofloxacin 250 MG Oral Tablet [Cipro] 250 mg=1 tab, PO, Q12H, X 7 day, # 14 tab, 0 Refill(s) Active 07/31/2015 [facility] Acetaminophen 300 MG / Codeine Phosphate 30 MG Oral Tablet [Tylenol with Codeine #3] 1 - 2 tab, PO, Q4H, PRN Pain, X 4 day, # 36 tab, 0 Refill(s) Active 07/31/2015 [facility] norepinephrine (ANES) Route: IV, Drug form: INJ, ONCE, Stop date: 07/31/15 15:18:00 Inactive 07/31/2015 [facility] ciprofloxacin (ANES) Route: IV, Drug form: INJ, ONCE, Stop date: 07/31/15 14:52:00 Inactive 07/31/2015 [facility] phenylephrine (ANES) Route: IV, Drug form: INJ, ONCE, Stop date: 07/31/15 14:37:00 Inactive 07/31/2015 [facility] phenylephrine (ANES) Route: IV, Drug form: INJ, ONCE, Stop date: 07/31/15 14:22:00 Inactive 07/31/2015 [facility] fentaNYL (ANES) Route: IV, Drug form: INJ, ONCE, Stop date: 07/31/15 14:15:00 Inactive 07/31/2015 [facility] fentaNYL (ANES) Route: IV, Drug form: INJ, ONCE, Stop date: 07/31/15 13:50:00 Inactive 07/31/2015 [facility] ceFAZolin (ANES) Route: IV, Drug form: INJ, ONCE, Stop date: 07/31/15 13:50:00 Inactive 07/31/2015 [facility] propofol (ANES) Route: IV, Drug form: INJ, ONCE, Stop date: 07/31/15 13:50:00 Inactive 07/31/2015 [facility] midazolam (ANES) Route: IV, Drug form: SOLN, ONCE, Stop date: 07/31/15 13:45:00 Inactive 07/31/2015 [facility] vancomycin (ANES) (ANES) Route: IV, Drug form: INJ, Start date: 07/31/15 13:10:00, Stop date: 07/31/15 14:10:00 Inactive 07/31/2015 [facility] Sodium Chloride 0.9% IV (ANES) (ANES) Route: IV, Total Volume: 1,000, Start date: 07/31/15 13:09:00, Stop date: 07/31/15 14:09:00 Inactive 07/31/2015 [facility] normal saline 0.9% IV 500 mL 500 mL, Rate: 50 ml/hr, Infuse over: 10 hr, Route: IV, Dosing Weight 126.364 kg, Total Volume: 500, Start date: 07/31/15 11:36:00, Duration: 30 day, Stop date: 08/30/15 11:35:00 No Longer Active 07/31/2015 [facility] Calcium Chloride 0.0014 MEQ/ML / Potassium Chloride 0.004 MEQ/ML / Sodium Chloride 0.103 MEQ/ML / Sodium Lactate 0.028 MEQ/ML Injectable Solution 1,000 mL, Rate: 25 ml/hr, Infuse over: 40 hr, Route: IV, Dosing Weight 126.364 kg, Total Volume: 1,000, Start date: 07/31/15 10:27:00, Duration: 30 day, Stop date: 08/30/15 10:26:00 Inactive 07/31/2015 [facility] tadalafil 5 MG Oral Tablet [Cialis] 5 mg=1 tab, PO, Daily, # 30 tab, 0 Refill(s) Active 07/24/2015 [facility] metoprolol 25 mg oral tablet, extended release 25 mg=1 tab, PO, Daily, # 30 tab, 0 Refill(s) Active 07/24/2015 [facility] silodosin 8 MG Oral Capsule [Rapaflo] 8 mg=1 cap, PO, Daily, 0 Refill(s) Active 07/24/2015 [facility] doxycycline monohydrate 100 mg oral tablet 100 mg=1 tab, PO, Q12H, # 28 tab, 0 Refill(s) Active 07/24/2015 [facility] tamsulosin 0.4 mg oral capsule 0.4 mg=1 cap, PO, Daily, # 30 cap, 0 Refill(s) No Longer Active 07/24/2015 [facility] warfarin 4 mg oral tablet 4 mg=1 tab, PO, Daily, # 30 tab, 0 Refill(s) No Longer Active 07/24/2015 [facility] gabapentin 100 MG Oral Capsule 200 mg=2 cap, PO, TID, # 720 cap, 0 Refill(s) Active 07/24/2015 [facility] escitalopram 20 mg oral tablet 20 mg=1 tab, PO, Daily, # 30 tab, 0 Refill(s) Active 07/24/2015 [facility] Ancef 2 gm, 100 mL, Route: IVPB, Drug form: INJ, PRE OP, Dosing Weight 121, kg, Start date: 07/24/15 8:00:00, Duration: 30 day, Stop date: 08/23/15 7:59:00Notes: Same as: Ancef No Longer Active 07/24/2015 [facility] Vancomycin 1 gm, Route: IVPB, PRE OP, Dosing Weight 121, kg, Start date: 07/24/15 8:00:00, Duration: 30 day, Stop date: 08/23/15 7:59:00Notes: TIME CRITICAL MEDICATION (Same As: Vancocin) Infusion rate 2001 mg: infuse over 2.5 hours MEDICATION WASTE Product Size: 1000 mg Product Wasted: ___ mg No Longer Active 07/24/2015 [facility] Allergies, Adverse Reactions, Alerts Substance Category Reaction Severity Reaction type Status Date Reported Comments Source Clindamycin Unknown Allergy to Substance Active 10/30/2017 [facility] Immunizations Immunization Date Given Site Status Last Updated Comments Source pneumococcal 23-valent vaccine 11/09/2014 Right deltoid completed An[facility] Results Order Name Results Value Reference Range Date Interpretation Comments Source Blood leukocytes automated count (number/volume) 8.78 4.8 - 10.8 05/25/2018 [facility] Blood erythrocytes automated count (number/volume) 5.46 4.3 - 5.7 05/25/2018 [facility] Blood hemoglobin measurement (moles/volume) 16.3 14.0 - 18.0 05/25/2018 [facility] Automated blood hematocrit (volume fraction) 47.5 38.2 - 49.6 05/25/2018 [facility] Automated erythrocyte mean corpuscular volume 87.0 81 - 99 05/25/2018 [facility] Automated erythrocyte mean corpuscular hemoglobin (mass per erythrocyte) 29.9 28 - 32 05/25/2018 [facility] Automated erythrocyte mean corpuscular hemoglobin concentration measurement (mass/volume) 34.3 31 - 35 05/25/2018 [facility] RDW BldCo-Rto 14.6 11.7 - 14.4 05/25/2018 [facility] Automated blood platelet count (count/volume) 160 140 - 360 05/25/2018 [facility] Automated blood segmented neutrophil count as percentage of total leukocytes 82.4 38.7 - 80.0 05/25/2018 [facility] Automated blood lymphocyte count as percentage ot total leukocytes 9.7 18.0 - 39.1 05/25/2018 [facility] Automated blood monocyte count as percentage of total leukocytes 6.4 4.4 - 11.3 05/25/2018 [facility] Automated blood eosinophil count as percentage of total leukocytes 0.9 0.0 - 6.0 05/25/2018 [facility] Automated blood basophil count as percentage of total leukocytes 0.1 0.0 - 1.0 05/25/2018 [facility] IM GRANULOCYTES % 0.5 0.0 - 1.0 05/25/2018 [facility] Automated blood neutrophil count 7.2 2.1 - 6.9 05/25/2018 [facility] Blood lymphocytes count (number/volume) 0.9 1.0 - 3.2 05/25/2018 [facility] Blood monocytes automated count (number/volume) 0.6 0.2 - 0.8 05/25/2018 [facility] Automated blood eosinophil count 0.1 0.0 - 0.4 05/25/2018 [facility] Automated blood basophil count (count/volume) 0.0 0.0 - 0.1 05/25/2018 [facility] Absolute Immature Granulocyte (auto 0.04 0 - 0.1 05/25/2018 [facility] Serum or plasma sodium measurement (moles/volume) 140 136 - 145 05/25/2018 [facility] Serum or plasma potassium measurement (moles/volume) 3.5 3.5 - 5.1 05/25/2018 [facility] Serum or plasma chloride measurement (moles/volume) 95 98 - 107 05/25/2018 [facility] Serum or plasma carbon dioxide, total measurement (moles/volume) 35 22 - 29 05/25/2018 [facility] Serum or plasma anion gap 13.5 8 - 16 05/25/2018 [facility] Serum or plasma urea nitrogen measurement (mass/volume) 19 7 - 26 05/25/2018 [facility] Serum or plasma creatinine measurement (mass/volume) 3.01 0.72 - 1.25 05/25/2018 [facility] Serum or plasma urea nitrogen/creatinine mass ratio 6 6 - 25 05/25/2018 [facility] Estimated glomerular filtration rate (GFR) determination 22 60 05/25/2018 [facility] Glucose measurement 190 74 - 118 05/25/2018 [facility] Serum or plasma calcium measurement (mass/volume) 9.9 8.4 - 10.2 05/25/2018 [facility] Serum or plasma magnesium measurement (mass/volume) 2.1 1.3 - 2.1 05/25/2018 [facility] Serum or plasma total bilirubin measurement (mass/volume) 0.9 0.2 - 1.2 05/25/2018 [facility] Aspartate Amino Transf (AST/SGOT) 16 5 - 34 05/25/2018 [facility] Serum or plasma alanine aminotransferase measurement (enzymatic activity/volume) 10 0 - 55 05/25/2018 [facility] Serum or plasma protein measurement (mass/volume) 8.2 6.5 - 8.1 05/25/2018 [facility] Serum or plasma albumin measurement (mass/volume) 4.2 3.5 - 5.0 05/25/2018 [facility] Plasma globulin measurement (mass/volume) 4.0 2.3 - 3.5 05/25/2018 [facility] Serum or plasma albumin/globulin mass ratio 1.1 0.8 - 2.0 05/25/2018 [facility] Serum or plasma alkaline phosphatase measurement (enzymatic activity/volume) 100 40 - 150 05/25/2018 [facility] Serum or plasma creatine kinase measurement (enzymatic activity/volume) 66 30 - 200 05/25/2018 [facility] Serum or plasma creatine kinase MB measurement (mass/volume) 0.70 0 - 5.0 05/25/2018 [facility] Troponin I measurement by highly sensitive enzyme immunoassay 0.008 0 - 0.300 05/25/2018 [facility] ELECTROLYTES Potassium Lvl 3.4 meq/L 3.5 - 5.1 09/21/2017 [facility] BLOOD BANK RESULTS ABO/Rh O POS 09/14/2017 [facility] BLOOD [facility] RESULTS Antibody Scrn Negative (09/14/17 10:14 AM) 09/14/2017 [facility] ELECTROLYTES AGAP 8.6 meq/L 10.0 - 20.0 09/14/2017 [facility] ELECTROLYTES eGFR 19 mL/min/1.73m2 09/14/2017 Result [...] should be multiplied by the estimated BMI. [facility] ELECTROLYTES CO2 34 meq/L 24 - 32 09/14/2017 [facility] ELECTROLYTES Calcium Lvl 8.6 mg/dL 8.5 - 10.5 09/14/2017 [facility] ELECTROLYTES Sodium Lvl 136 meq/L 135 - 145 09/14/2017 [facility] ELECTROLYTES Creatinine Lvl 3.35 mg/dL 0.50 - 1.40 09/14/2017 [facility] ELECTROLYTES Chloride Lvl 97 meq/L 95 - 109 09/14/2017 [facility] ELECTROLYTES Potassium Lvl 3.6 meq/L 3.5 - 5.1 09/14/2017 [facility] ELECTROLYTES Glucose Lvl 131 mg/dL 70 - 99 09/14/2017 [facility] ELECTROLYTES BUN 28 mg/dL 7 - 22 09/14/2017 [facility] HEMATOLOGY Eosinophils # 0.1 K/CMM 0.0 - 0.5 09/14/2017 [facility] HEMATOLOGY Monocytes 10.4 % 2.0 - 12.0 09/14/2017 [facility] HEMATOLOGY Lymphocytes 26.8 % 20.0 - 40.0 09/14/2017 [facility] HEMATOLOGY Segs 61.6 % 45.0 - 75.0 09/14/2017 [facility] HEMATOLOGY Segs-Bands # 3.8 K/CMM 1.5 - 8.1 09/14/2017 [facility] HEMATOLOGY Basophils 0.1 % 0.0 - 1.0 09/14/2017 [facility] HEMATOLOGY Lymphocytes # 1.6 K/CMM 1.0 - 5.5 09/14/2017 [facility] [place] Monocytes # 0.6 K/CMM 0.0 - 0.8 09/14/2017 [facility] Eosinophils 1.1 % 0.0 - 4.0 09/14/2017 [facility] [place] PTT 30.6 s 22.9 - 35.8 09/14/2017 [facility] INR 1.03 0.85 - 1.17 09/14/2017 [facility] [place] PT 13.5 s 12.0 - 14.7 09/14/2017 [facility] [place] MPV 7.5 fL 7.4 - 10.4 09/14/2017 [facility] [place] Platelet 148 K/CMM 133 - 450 09/14/2017 [facility] MCH 32.1 pg 27.0 - 31.0 09/14/2017 [facility] [place] MCHC 34.9 g/dL 32.0 - 36.0 09/14/2017 [facility] RDW 15.4 % 11.5 - 14.5 09/14/2017 [facility] [place] MCV 92.0 fL 80.0 - 94.0 09/14/2017 [facility] [place] Hct 44.5 % 42.0 - 54.0 09/14/2017 [facility] RBC 4.84 M/CMM 4.70 - 6.10 09/14/2017 [facility] [place] Hgb 15.5 g/dL 14.0 - 18.0 09/14/2017 [facility] [place] WBC 6.1 K/CMM 3.7 - 10.4 09/14/2017 [facility] SPECIAL CHEMISTRY Hgb A1C 8.1 % <=5.6 % 09/14/2017 [facility] Chest 2 views DX Chest 2 [...] IMPRESSION: 1. No acute cardiopulmonary abnormality. SL: [id number] 09/14/2017 - - Read by: Satish Werner MD Dictated Date/time: 09/14/17 10:27 Electronically Signed by: Satish Werner MD 09/14/17 10:27 FINAL REPORT [facility] REFERENCE LAB RESULTS Test Name PRA RESULTS 10/27/2016 [facility] REFERENCE LAB RESULTS HLA Misc Test See Report 1 (10/27/16 10:35 AM) 10/27/2016 Result Comment: Reference lab results scanned in Care[facility]. Results displayed in [id number]- Outside Lab Documents (Imaged) under date/time results were scanned. Report sent for scanning on 11/01/2016. 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 COMPARISON: 07/31/2015 FINDINGS: Lungs are clear. No pleural effusion or pneumothorax is present. Cardiomediastinal silhouette is normal. Bones are normal. IMPRESSION: No acute abnormality of the chest. SL: [id number] 06/24/2016 - - Read by: Naun Mckeon MD Dictated Date/time: 06/24/16 13:16 Electronically Signed by: Naun Mckeon MD 06/24/16 13:17 FINAL REPORT [facility] ELECTROLYTES POC Potassium 3.2 meq/L 3.5 - 5.1 01/29/2016 [facility] Retroperitoneal Complete US Retroperitoneal Complete US EXAM: [...] - This report was dictated by a Word Processor Technician/Fellow. I have personally reviewed the images as well as the Resident's interpretation and agree with the findings. Read by: Ruben Collier MD Resident: Ruben Collier MD Dictated Date/time: 01/01/16 10:13 Electronically Signed by: Sunny Keene MD 01/01/16 12:09 FINAL REPORT [facility] REFERENCE LAB RESULTS Test Name PRA RESULTS 12/23/2015 [facility] REFERENCE LAB RESULTS HLA Misc Test See Report 1 (12/23/15 4:35 PM) 12/23/2015 Result Comment: Reference lab results scanned in [facility]. Results displayed in [id number]- Outside Lab Documents (Imaged) under date/time results were scanned. Report sent for scanning on 01/01/2016. [facility] CHEM PANEL Calcium Lvl 8.2 mg/dL 8.5 - 10.5 08/01/2015 [facility] CHEM PANEL AGAP 13.1 meq/L 10.0 - 20.0 08/01/2015 [facility] CHEM PANEL CO2 28 meq/L 24 - 32 08/01/2015 [facility] CHEM PANEL Sodium Lvl 138 meq/L 135 - 145 08/01/2015 [facility] CHEM PANEL BUN 31 mg/dL 7 - 22 08/01/2015 [facility] CHEM PANEL Chloride Lvl 101 meq/L 95 - 109 08/01/2015 [facility] CHEM PANEL Potassium Lvl 4.1 meq/L 3.5 - 5.1 08/01/2015 [facility] CHEM PANEL Glucose Lvl 151 mg/dL 70 - 99 08/01/2015 [facility] CHEM PANEL Creatinine Lvl 4.79 mg/dL 0.50 - 1.40 08/01/2015 [facility] CHEM PANEL eGFR 13 mL/min/1.73m2 08/01/2015 [...] should be multiplied by the estimated BMI. [facility] Chest 1view DX Chest 1view DX [...] Jasbir Dimas MD 07/31/15 19:14 FINAL REPORT [facility] CHEM PANEL Glucose Lvl 132 mg/dL 70 - 99 07/31/2015 [facility] ELECTROLYTES Potassium Lvl 4.4 meq/L 3.5 - 5.1 07/31/2015 [facility] HEMATOLOGY PTT 34.5 s 22.9 - 35.8 07/31/2015 [facility] HEMATOLOGY PT 14.5 s 12.0 - 14.7 07/31/2015 [facility] HEMATOLOGY INR 1.10 0.85 - 1.17 07/31/2015 [facility] IMMUNOLOGY Hep Bs Ag Negative *NA* (07/31/15 10:15 AM) Negative 07/31/2015 [facility] Ext Upper Venous Doppler Unilat US Ext Upper Venous Doppler Unilat US Please refer to the heart lab report, located under vascular in [facility]. 07/29/2015 - - Electronically Signed by: Zachery Nunes 07/31/15 11:02 FINAL REPORT [facility] ELECTROLYTES AGAP 8.8 meq/L 10.0 - 20.0 07/24/2015 [facility] ELECTROLYTES eGFR 15 mL/min/1.73m2 07/24/2015 Result [...] should be multiplied by the estimated BMI. [facility] ELECTROLYTES Creatinine Lvl 4.28 mg/dL 0.50 - 1.40 07/24/2015 [facility] ELECTROLYTES Chloride Lvl 101 meq/L 95 - 109 07/24/2015 [facility] ELECTROLYTES CO2 33 meq/L 24 - 32 07/24/2015 [facility] ELECTROLYTES Calcium Lvl 8.6 mg/dL 8.5 - 10.5 07/24/2015 [facility] ELECTROLYTES BUN 29 mg/dL 7 - 22 07/24/2015 [facility] ELECTROLYTES Potassium Lvl 3.8 meq/L 3.5 - 5.1 07/24/2015 [facility] ELECTROLYTES Sodium Lvl 139 meq/L 135 - 145 07/24/2015 [facility] ELECTROLYTES Glucose Lvl 163 mg/dL 70 - 99 07/24/2015 [facility] [place] PTT 36.4 s 22.9 - 35.8 07/24/2015 [facility] [place] WBC 5.9 K/CMM 3.7 - 10.4 07/24/2015 [facility] [place] RBC 3.94 M/CMM 4.70 - 6.10 07/24/2015 [facility] [place] Hct 38.3 % 42.0 - 54.0 07/24/2015 [facility] [place] Hgb 12.7 g/dL 14.0 - 18.0 07/24/2015 [facility] [place] RDW 14.3 % 11.5 - 14.5 07/24/2015 [facility] [place] MCV 97.1 fL 80.0 - 94.0 07/24/2015 [facility] [place] MCH 32.2 pg 27.0 - 31.0 07/24/2015 [facility] [place] MPV 7.6 fL 7.4 - 10.4 07/24/2015 [facility] [place] Platelet 177 K/CMM 133 - 450 07/24/2015 [facility] MCHC 33.2 g/dL 32.0 - 36.0 07/24/2015 [facility] HEMATOLOGY PT 17.2 s 12.0 - 14.7 07/24/2015 [facility] HEMATOLOGY INR 1.37 0.85 - 1.17 07/24/2015 [facility] HEMATOLOGY Basophils 0.3 % 0.0 - 1.0 07/24/2015 [facility] HEMATOLOGY Segs-Bands # 4.2 K/CMM 1.5 - 8.1 07/24/2015 [facility] HEMATOLOGY Eosinophils 1.1 % 0.0 - 4.0 07/24/2015 [facility] HEMATOLOGY Eosinophils # 0.1 K/CMM 0.0 - 0.5 07/24/2015 [facility] HEMATOLOGY Lymphocytes # 1.1 K/CMM 1.0 - 5.5 07/24/2015 [facility] HEMATOLOGY Monocytes # 0.5 K/CMM 0.0 - 0.8 07/24/2015 [facility] [place] Lymphocytes 18.5 % 20.0 - 40.0 07/24/2015 [facility] HEMATOLOGY Monocytes 9.1 % 2.0 - 12.0 07/24/2015 [facility] HEMATOLOGY Segs 71.0 % 45.0 - 75.0 07/24/2015 [facility] Chest 2 views DX Chest 2 views DX PROCEDURE: Chest 2 views CLINICAL INFORMATION Coughing COMPARISON: None. Underinflated lungs. No infiltrates, effusions or pneumothorax. Left central line tip in the right atrium. Enlarged cardiac silhouette. Thoracic spurring. SL: 13 07/24/2015 - - Read by: Abdullahi Salcedo MD Dictated Date/time: 07/24/15 09:18 Electronically Signed by: Abdullahi Salcedo MD 07/24/15 09:20 FINAL REPORT [facility] Vital Signs Vital Sign Value Date Comments Source Systolic (mm Hg) 122 09/21/2017 [facility] Diastolic (mm Hg) 65 09/21/2017 [facility] Respitory Rate 18 09/21/2017 [facility] Heart Rate 68 09/21/2017 [facility] Systolic (mm Hg) 119 09/21/2017 [facility] Diastolic (mm Hg) 67 09/21/2017 [facility] Respitory Rate 16 09/21/2017 [facility] Heart Rate 69 09/21/2017 [facility] Systolic (mm Hg) 104 09/21/2017 [facility] Diastolic (mm Hg) 63 09/21/2017 [facility] Respitory Rate 17 09/21/2017 [facility] Heart Rate 65 09/14/2017 [facility] Temperature Oral (F) 97.6 F 09/14/2017 [facility] Weight 127.727 09/14/2017 [facility] BMI Calculated 36.15 09/14/2017 [facility] Height 187.96 cm 09/14/2017 [facility] Respitory Rate 16 06/24/2016 [facility] Heart Rate 79 06/24/2016 [facility] Temperature Oral (F) 97.9 F 06/24/2016 [facility] Systolic (mm Hg) 132 06/24/2016 [facility] Diastolic (mm Hg) 83 06/24/2016 [facility] Systolic (mm Hg) 120 06/24/2016 [facility] Diastolic (mm Hg) 75 06/24/2016 [facility] Temperature Oral (F) 97.5 F 06/24/2016 [facility] Heart Rate 77 06/24/2016 [facility] Height 187.96 cm 06/24/2016 [facility] Weight 136.364 06/24/2016 [facility] BMI Calculated 38.6 06/24/2016 [facility] Respitory Rate 18 06/24/2016 [facility] BMI Calculated 37.97 02/03/2016 [facility] Weight 134.148 02/03/2016 [facility] Height 187.96 cm 02/03/2016 [facility] Temperature Oral (F) 98.0 F 02/03/2016 [facility] Respitory Rate 18 02/03/2016 [facility] Heart Rate 66 02/03/2016 [facility] Weight 132.273 01/06/2016 [facility] BMI Calculated 37.44 01/06/2016 [facility] Height 187.96 cm 01/06/2016 [facility] Heart Rate 72 01/06/2016 [facility] Systolic (mm Hg) 108 01/06/2016 [facility] Diastolic (mm Hg) 71 01/06/2016 [facility] BMI Calculated 37.8 12/23/2015 [facility] Weight 132.18 12/23/2015 [facility] Height 187 cm 12/23/2015 [facility] Weight 126.36 08/01/2015 [facility] Height 187.9 cm 08/01/2015 [facility] BMI Calculated 35.79 08/01/2015 [facility] Respitory Rate 18 08/01/2015 [facility] Systolic (mm Hg) 161 08/01/2015 [facility] Diastolic (mm Hg) 60 08/01/2015 [facility] Temperature Oral (F) 99.3 F 08/01/2015 [facility] Heart Rate 86 08/01/2015 [facility] Temperature Oral (F) 98.6 F 08/01/2015 [facility] Heart Rate 73 08/01/2015 [facility] Systolic (mm Hg) 148 08/01/2015 [facility] Diastolic (mm Hg) 69 08/01/2015 [facility] Respitory Rate 16 08/01/2015 [facility] Heart Rate 76 08/01/2015 [facility] Respitory Rate 18 08/01/2015 [facility] Systolic (mm Hg) 130 08/01/2015 [facility] Diastolic (mm Hg) 68 08/01/2015 [facility] Temperature Oral (F) 98.1 F 08/01/2015 [facility] Height 187.96 cm 07/24/2015 [facility] BMI Calculated 35.77 07/24/2015 [facility] Weight 126.364 07/24/2015 [facility] Temperature Oral (F) 98.2 F 03/28/2015 [facility] Heart Rate 64 03/28/2015 [facility] Systolic (mm Hg) 131 03/28/2015 [facility] Diastolic (mm Hg) 68 03/28/2015 [facility] Respitory Rate 17 03/28/2015 [facility] Weight 121 03/28/2015 [facility] Temperature Oral (F) 98.3 F 03/28/2015 [facility] Heart Rate 66 03/28/2015 [facility] Respitory Rate 18 03/28/2015 [facility] Systolic (mm Hg) 134 03/28/2015 [facility] Diastolic (mm Hg) 70 03/28/2015 [facility] Encounters Location Location Details Encounter Type Encounter Number Reason For Visit Attending Provider ADM Date DC Date Status Source Outpatient [id number] [facility] 01/13/2015 Active [facility] Outpatient [id number] [facility] 02/23/2015 Active [facility] Outpatient [id number] [facility] 03/26/2015 [facility] [id number] Rene Salguero 03/27/2015 03/28/2015 [facility] Outpatient [id number] [facility] 06/15/2015 Active [facility] Outpatient [id number] [facility] 06/15/2015 Active [facility] Outpatient [id number] URODYNAMICS VISIT 07/16/2015 [facility] Outpatient [id number] Ezequiel Shafer 07/29/2015 07/30/2015 [facility] OBS Observation Patient [id number] Ezequiel Shafer 08/01/2015 08/01/2015 [facility] Outpatient [id number] [facility] 08/04/2015 Active [facility] Outpatient [id number] [facility] 08/19/2015 Active [facility] Outpatient [id number] [facility] 11/16/2015 Active [facility] OP Transplant Clinic - Pre [id number] Non Physician 12/23/2015 01/22/2016 [facility] EDDC Outpatient [id number] Kelsey Ibrahim 01/06/2016 01/07/2016 [facility] Out[facility] [id number] Kelsey Ibrahim 01/29/2016 01/29/2016 [facility] Outpatient [id number] Joanne Curtis 02/03/2016 02/04/2016 [facility] Phone Message [id number] 02/05/2016 02/07/2016 [facility] Emergency [id number] Jamee Mosquera 06/24/2016 06/24/2016 [facility] Outpatient [id number] [facility] 10/04/2016 Active [facility] OP Transplant Clinic - Pre [id number] Lore Coreas 10/27/2016 11/26/2016 [facility] Outpatient [id number] [facility] 11/01/2016 Active [facility] Outpatient [id number] [facility] 11/28/2016 Active [facility] Outpatient [id number] [facility] 12/07/2016 Active [facility] [id number] Ezequiel Shafer 09/21/2017 09/21/2017 [facility] Departed Emergency Room [id number] DON SAENZ MD 10/30/2017 10/30/2017 [facility] Departed Emergency Room [id number] ISATU HAIR MD 05/25/2018 05/25/2018 [facility] Outpatient [id number] [facility] 06/04/2018 Active [facility] Outpatient [id number] [facility] 06/29/2018 Active [facility] Outpatient [id number] [facility] 06/29/2018 Active [facility] Outpatient [id number] [facility] 07/20/2018 Active [facility] Outpatient [id number] PROCEDURE ROOM 1 07/20/2018 Active Linda Jhonathan [facility] Pre[facility]Reg [id number] [facility] 07/20/2018 07/20/2018 [facility] Pre-Reg [id number] [facility] 07/20/2018 07/20/2018 [facility] Procedures Procedure Code Date Perfomer Comments Source Computed tomography of brain without radiopaque contrast [id number] 05/25/2018 [facility] TUIP - Transurethral incision of prostate [id number] 07/31/2015 [facility] TUIP - Transurethral incision of prostate [id number] 07/31/2015 [facility] TUIP - Transurethral incision of prostate [id number] 07/31/2015 [facility] TUIP - Transurethral incision of prostate [id number] 07/31/2015 [facility] HD - Hemodialysis [id number] 11/13/2014 [facility] HD - Hemodialysis [id number] 11/13/2014 [facility] HD - Hemodialysis [id number] 11/13/2014 [facility] HD - Hemodialysis [id number] 11/13/2014 [facility] Arteriovenous fistula operation [id number] [facility] procedure [id number] [facility] Arteriovenous fistula operation [id number] [facility] Cystoscopy [id number] [facility] Dialysis procedure [id number] [facility] Insertion of tunneled dialysis catheter using fluoroscopic guidance [id number] [facility] Arteriovenous fistula operation [id number] [facility] Cystoscopy [id number] [facility] Dialysis procedure [id number] [facility] Insertion of tunneled dialysis catheter using fluoroscopic guidance [id number] [facility] Cystoscopy [id number] [facility] Insertion of tunneled dialysis catheter using fluoroscopic guidance [id number] [facility] Arteriovenous fistula operation [id number] [facility] Cystoscopy [id number] [facility] Dialysis procedure [id number] [facility] Insertion of tunneled dialysis catheter using fluoroscopic guidance [id number] [facility]
--- OUTSIDE RECORDS SUMMARY | 2018-10-27 01:03 | XMS REPORT | Summary of Care ---
Author Author [facility] Organization [facility] Address Unknown Phone Unavailable Encounter DAISY Blackburn(FIN) [id number] Date(s): 07/20/18 - 07/20/18 [facility] [address], [address] [place] [address] [phone] Referring Physician: Jevon Romero MD Vital Signs [...]
[2018-10-27] MEDS: ONDANSETRON HCL INJ 2MG/ML 2ML 2 MG/ML VIAL IV STA (01:21)
[2018-10-27] MEDS: PANTOPRAZOLE 40 MG 10ML VIAL IV STA (01:21)
[2018-10-27 01:24] LABS: BASOPHILS % 0.2 % (0.0-1.0); EOSINOPHILS # (AUTO) 0.1 (0.0-0.4); HEMATOCRIT 44.6 % (38.2-49.6); HEMOGLOBIN 15.2 g/dL (14.0-18.0); LYMPHOCYTES # (AUTO) 1.4 (1.0-3.2); LYMPHOCYTES % 34.2 % (18.0-39.1); MEAN CORPUSCULAR HEMOGLOBIN 29.2 pg (28-32); MEAN CORPUSCULAR HGB CONC 34.1 g/dL (31-35); MEAN CORPUSCULAR VOLUME 85.8 fL (81-99); MONOCYTES # (AUTO) 0.5 (0.2-0.8); MONOCYTES % 12.6 % (4.4-11.3); NEUTROPHILS # (AUTO) 2.1 (2.1-6.9); NEUTROPHILS % 50.8 % (38.7-80.0); PLATELET COUNT 155 x10e3/uL (140-360); RED CELL DISTRIBUTION WIDTH 13.5 % (11.7-14.4)
[2018-10-27 01:50] LABS: ALBUMIN/GLOBULIN RATIO 1.1 (0.8-2.0); CALCIUM 9.3 mg/dL (8.4-10.2); CREATININE, SERUM 2.77 mg/dL (0.72-1.25)
[2018-10-27] MEDS: ACETAMINOPHEN/CODEINE 300MG - 30MG TAB PO STA (02:10)
[2018-10-27] MEDS ORDERED: ACETAMINOPHEN/CODEINE 300MG - 30MG TAB ONE (02:10)
--- NOTE | 2018-10-27 02:15 | Diagnostic Imaging Report ---
EXAMINATION: CHEST SINGLE (PORTABLE) INDICATION: ^vomiting ^[id number] ^0130 ^Y COMPARISON: 05/25/2018 FINDINGS: AP view TUBES and LINES: None. LUNGS: Limited by low lung volumes and body habitus. Central vascular prominence. There is no evidence of pneumonia or pulmonary edema. PLEURA: No pleural effusion or pneumothorax. HEART AND MEDIASTINUM: The cardiomediastinal silhouette is enlarged. BONES AND SOFT TISSUES: No acute osseous lesion. Soft tissues are unremarkable. UPPER ABDOMEN: No free air under the diaphragm. IMPRESSION: Enlarged cardiomediastinal silhouette and central vascular prominence, accentuated by low lung volumes. No definite focal consolidation. Signed by: Dr. Elton Ball MD on 10/27/2018 2:12 AM
[2018-10-27 02:33] LABS: CREATINE KINASE 107 IU/L (30-200)
[2018-10-27 02:44] LABS: CREATINE KINASE MB < 1.00 ng/mL (0-4.3)
[2018-10-27] MEDS ORDERED: SODIUM CHLORIDE 0.9% 50ML 50 ML ONE (03:37)
[2018-10-27] MEDS ORDERED: IOPAMIDOL 370 MG/ML 200 ML INFUS..BTL INJ ONE (03:38)
[2018-10-27] MEDS ORDERED: DICYCLOMINE HCL 20 MG/2 ML VIAL IM ONE (03:55)
[2018-10-27] MEDS ORDERED: METOCLOPRAMIDE HCL 10 MG/2ML VIAL ONE (04:02)
[2018-10-27] MEDS: METOCLOPRAMIDE HCL 10 MG/2ML VIAL IV ONE (04:05)
[2018-10-27] MEDS: DICYCLOMINE HCL 20 MG/2 ML VIAL IM ONE (04:05)
--- NOTE | 2018-10-27 04:31 | Diagnostic Imaging Report ---
EXAM: CT Abdomen and Pelvis WITH contrast INDICATION: ^abd pain ^[id number] ^0340 COMPARISON: Same day chest x-ray TECHNIQUE: Abdomen and pelvis were scanned utilizing a multidetector helical scanner from the lung base to the pubic symphysis after administration of IV contrast. Coronal and sagittal reformations were obtained. Dose modulation, iterative reconstruction, and/or weight based adjustment of the mA/kV was utilized to reduce the radiation dose to as low as reasonably achievable. Routine protocol was performed. Scan was performed when during portal venous phase. IV CONTRAST: 100 mL of Isovue-370 ORAL CONTRAST: Water COMPLICATIONS: None RADIATION DOSE: Total DLP: 1167.56 mGy*cm Estimated effective dose: (DLP x 0.015 x size factor) mSv CTDIvol has been reviewed. It is below the limits set by the Radiation Protocol Committee (RPC). FINDINGS: LINES and TUBES: None. LOWER THORAX: Mild hazy opacification of the right lung base. HEPATOBILIARY: No focal hepatic lesions. No biliary ductal dilation. GALLBLADDER: No radio-opaque stones or sludge. No wall thickening. SPLEEN: No splenomegaly. Tiny calcified granuloma. PANCREAS: No focal masses or ductal dilatation. ADRENALS: No adrenal nodules KIDNEYS/URETERS: Atrophic kidneys. No hydronephrosis. No cystic or solid mass lesions. No stones. Nonspecific mild bilateral perinephric fat stranding. GI TRACT: No abnormal distention, wall thickening, or evidence of bowel obstruction. Appendix is normal. PELVIC ORGANS/BLADDER: Enlarged prostate gland. Bladder is collapsed, demonstrating wall thickening. LYMPH NODES: No lymphadenopathy. VESSELS: Unremarkable. PERITONEUM / RETROPERITONEUM: No free air or fluid. BONES: Unremarkable. SOFT TISSUES: Unremarkable. IMPRESSION: 1. No acute inflammatory process in the abdomen/pelvis. 2. Mild hazy opacification of the right lung base, could represent developing pneumonia versus atelectasis. 3. Atrophic kidneys. 4. Enlarged prostate gland. Signed by: Dr. Elton Ball MD on 10/27/2018 4:28 AM
[2018-10-27] MEDS ORDERED: AMLODIPINE-BEN1 EACH PO (04:39)
[2018-10-27] MEDS ORDERED: ASPIR 8181 MG PO (04:40)
[2018-10-27] MEDS ORDERED: GLIMEPIRIDE2 MG PO (04:40)
[2018-10-27] MEDS ORDERED: MACRODANTIN100 MG PO (04:41)
[2018-10-27] MEDS ORDERED: NORCO 10-325 T1 EACH PO (04:42)
[2018-10-27] MEDS ORDERED: MORPHINE SULFATE INJ 4 MG/ML INJ 1ML ONE (05:13)
[2018-10-27] MEDS: HYDRALAZINE HCL 20 MG/ML VIAL IV STA (05:13)
[2018-10-27] MEDS: MORPHINE SULFATE 5 MG/ML VIAL IV ONE (05:13)
--- NOTE | 2018-10-27 05:50 | Diagnostic Imaging Report ---
EXAMINATION: CHEST 2 VIEWS INDICATION: ^vascular prominence ^[id number] ^0455 COMPARISON: Same day at 0131 hours FINDINGS: PA and lateral views TUBES and LINES: None. LUNGS: Limited by low lung volumes and body habitus. No focal consolidation. Minimal right basilar subsegmental atelectasis. PLEURA: No pleural effusion or pneumothorax. HEART AND MEDIASTINUM: The cardiomediastinal silhouette is enlarged. BONES AND SOFT TISSUES: No acute osseous lesion. Soft tissues are unremarkable. UPPER ABDOMEN: No free air under the diaphragm. IMPRESSION: Minimally improved central vascular prominence due to better inspiration. Right basilar subsegmental atelectasis. Signed by: Dr. Elton Ball MD on 10/27/2018 5:47 AM
[2018-10-27 06:26] VITALS: BP 151/87
== END 2018-10-27 06:27 | disposition home or self-care (01) ==
LOC: ER 01:00
DX: R10.11 Right upper quadrant pain (principal)
CPT/HCPCS: 36415; 71045; 71046; 74177; 80053; 82550; 82553; 83690; 83880; 84484; 85025; 93005; 96372; 96374; 99284; C9113; J0360; J0500; J2270; J2405; J2765; Q9967

== ENCOUNTER 2019-05-20 07:56 | Emergency (ER) | payer MEDICARE, OTHER ==
[~2019-05-20] VITALS: Ht 188 cm; Wt 135.6 kg
[~2019-05-20 07:56] MED LIST: AMLODIPINE-BEN1 EACH PO; ASPIR 8181 MG PO; GLIMEPIRIDE2 MG PO; MACRODANTIN100 MG PO; NORCO 10-325 T1 EACH PO
[2019-05-20] MEDS ORDERED: HYDROMORPHONE 1MG/1ML INJ IV STA ×2 (08:13→10:24)
[2019-05-20] MEDS ORDERED: HYDROMORPHONE 1MG/1ML INJ ONE (08:27)
[2019-05-20 08:46] LABS: BASOPHILS % 0.1 % (0.0-1.0); EOSINOPHILS % 0.4 % (0.0-6.0); HEMATOCRIT 45.1 % (38.2-49.6); HEMOGLOBIN 15.9 g/dL (14.0-18.0); LYMPHOCYTES # (AUTO) 0.8 (1.0-3.2); LYMPHOCYTES % 10.1 % (18.0-39.1); MEAN CORPUSCULAR HGB CONC 35.3 g/dL (31-35); MEAN CORPUSCULAR VOLUME 87.9 fL (81-99); MONOCYTES # (AUTO) 0.7 (0.2-0.8); NEUTROPHILS # (AUTO) 6.5 (2.1-6.9); PLATELET COUNT 117 x10e3/uL (140-360); RED BLOOD COUNT 5.13 x10e6/uL (4.3-5.7)
[2019-05-20 09:10] LABS: ALBUMIN 3.5 g/dL (3.5-5.0); ALBUMIN/GLOBULIN RATIO 1.1 (0.8-2.0); ANION GAP 14.3 mmol/L (8-16); CALCIUM 8.5 mg/dL (8.4-10.2); CREATININE, SERUM 3.55 mg/dL (0.72-1.25); POTASSIUM 3.3 mmol/L (3.5-5.1)
[2019-05-20 09:16] LABS: PLATELET ESTIMATE SLIGHTLY DECREASED
[2019-05-20 09:18] LABS: LARGE PLATELETS FEW
--- NOTE | 2019-05-20 09:23 | Diagnostic Imaging Report ---
EXAM: CT Abdomen and Pelvis WITHOUT intravenous contrast INDICATION: Left abdominal pain, flank pain COMPARISON: CT abdomen and pelvis 10/27/2018 TECHNIQUE: Abdomen and pelvis were scanned utilizing a multidetector helical scanner from the lung base to the pubic symphysis without administration of IV contrast. Coronal and sagittal reformations were obtained. IV CONTRAST: None ORAL CONTRAST: None COMPLICATIONS: None RADIATION DOSE: Total DLP: 983.3 mGy*cm Dose modulation, iterative reconstruction, and/or weight based adjustment of the mA/kV was utilized to reduce the radiation dose to as low as reasonably achievable. FINDINGS: LOWER THORAX: Mild atherosclerotic coronary artery calcifications. HEPATOBILIARY: No focal liver lesion. Tiny radiopaque gallstones in the gallbladder. No CT evidence of cholecystitis. SPLEEN: Calcified granuloma in the nonenlarged spleen. PANCREAS: No focal masses or ductal dilatation. ADRENALS: No adrenal nodules. KIDNEYS/URETERS: Severe left hydroureteronephrosis and left perinephric fat stranding. No urinary calculi identified. No right hydronephrosis or hydroureter. Renal cortical atrophy on the right, unchanged from 10/27/2018. PELVIC ORGANS/BLADDER: No bladder calculi. Prostatomegaly to 6.0 cm with mass effect on the posterior bladder. PERITONEUM / RETROPERITONEUM: Small volume ascites in the abdomen and pelvis, new compared to 10/27/2018. New pigtail drainage catheter terminates in free fluid in the pelvis. LYMPH NODES: No lymphadenopathy. VESSELS: Unremarkable. GI TRACT: Minimal diverticulosis. No CT evidence of diverticulitis. No abnormal bowel thickening. No bowel obstruction. BONES AND SOFT TISSUES: No acute osseous injury. No suspicious lytic or blastic lesions. Mild degenerative changes. IMPRESSION: Severe left hydroureteronephrosis and left perinephric fat stranding, new compared to 10/27/2018. No obstructive urinary calculi identified. No right hydronephrosis or hydroureter. New ascites in the abdomen and pelvis. Interval placement of pigtail drainage catheter terminating in pelvic free fluid. Cholelithiasis without CT evidence of cholecystitis. Mild coronary artery atherosclerotic calcifications. Signed by: Rj Hathaway MD on 05/20/2019 9:20 AM
[2019-05-20] MEDS ORDERED: CEFTRIAXONE SOD 1 GM/NS 50 ML 50 ML IV ONE (09:45)
== END 2019-05-20 10:50 | disposition other institution (70) ==
LOC: ER 07:56
DX: R10.32 Left lower quadrant pain (principal); R10.12 Left upper quadrant pain; N13.30 Unspecified hydronephrosis; N18.9 Chronic kidney disease, unspecified
CPT/HCPCS: 36415; 74176; 80053; 85025; 93005; 99284; J0696; J1170